=== PATIENT | female | born 1995 | race African-American/Black ===

== ENCOUNTER 2021-06-07 10:02 | Outpatient (REF) | payer BC, SELFPAY ==
[2021-06-07 11:26] LABS: MANUAL DIFF FLAG NO
[2021-06-07 11:39] LABS: Basophils Percent Auto 0.4 % (0-2); Eosinophils Absolute Auto 0.1 X10*3/uL (0.0-0.4); Eosinophils Percent Auto 1.7 % (0-4); Hematocrit 34.8 % (37-47); Hemoglobin 11.9 g/dl (12.0-16.0); Imm Gran Abs Auto 0.01 X10*3/uL (0.00-0.03); Imm Gran Pct Auto 0.2 % (0.0-0.4); Lymphocytes Absolute Auto 1.2 X10*3/uL (1.2-4.9); Lymphocytes Percent Auto 25.5 % (20-40); Mean Corpuscular HGB Conc 34.2 g/dl (31.0-35.0); Mean Corpuscular Hemoglobin 27.2 pg (27.0-33.0); Mean Corpuscular Volume 79.6 fL (80-98); Mean Platelet Volume 11.5 fL (9.4-12.3); Monocytes Absolute Auto 0.4 X10*3/uL (0.1-1.2); Monocytes Percent Auto 7.9 % (2-11); Neutrophils Absolute Auto 2.9 X10*3/uL (2.0-8.3); Neutrophils Percent Auto 64.3 % (45-73); Platelet Count 278 X10*3/uL (160-400); Red Blood Count 4.37 X10*6/uL (4.20-5.50); Red Cell Distribution Width 12.7 % (11.0-16.0); White Blood Count 4.6 X10*3/uL (4.8-10.8)
[2021-06-07 12:07] LABS: TSH reflex Free T4 2.24 uIU/mL (0.32-4.0)
[2021-06-07 12:42] LABS: Estimated Glomerular Filt Rate > 60
[2021-06-07 12:43] LABS: Alanine Aminotransferase < 6 U/L (0-31); Anion Gap 12 (12-20); Aspartate Amino Transferase 8 U/L (5-31); Blood Urea Nitrogen 9 mg/dL (9-16); Calcium 9.5 mg/dL (8.4-10.2); Carbon Dioxide 25 mmol/L (22-29); Chloride 104 mmol/L (96-108); Cholesterol 162 mg/dL; Glucose Fasting 82 mg/dL (60-99); HDL Cholesterol 52 mg/dL; LDL Cholesterol Calculated 84 mg/dl; Potassium 4.3 mmol/L (3.3-5.1); Sodium 137 mmol/L (135-145); Triglycerides 134 mg/dL
== END 2021-06-07 10:03 | disposition home or self-care (01) ==
LOC: HO.HMGCLDS 10:02
PROVIDERS: PCP Internal Medicine; Visit Provider Internal Medicine
DX: Z00.00 Encounter for general adult medical examination without abnormal findings (principal); E28.2 Polycystic ovarian syndrome; F41.8 Other specified anxiety disorders; R04.0 Epistaxis; I10 Essential (primary) hypertension
CPT/HCPCS: 36415; 80048; 80061; 82306; 84443; 84450; 84460; 85025

== ENCOUNTER 2021-12-03 14:22 | Outpatient (REF) | payer BC, SELFPAY ==
[2021-12-03 15:11] LABS: Influenza A PCR NEGATIVE (Negative); Influenza B PCR NEGATIVE (Negative); Resp Syncy Virus RNA Qual PCR NEGATIVE (Negative); SARS COV2 PCR INHOUSE NEGATIVE (Negative)
== END 2021-12-03 14:23 | disposition home or self-care (01) ==
LOC: HO.LNP 14:22
PROVIDERS: Visit Provider Physician Assistant
DX: R51.9 Headache, unspecified (principal); B34.9 Viral infection, unspecified; Z20.822 Contact with and (suspected) exposure to COVID-19
CPT/HCPCS: 0241U

== ENCOUNTER 2022-11-26 09:40 | Outpatient (REF) | payer BC, SELFPAY ==
[2022-11-26 11:17] LABS: MANUAL DIFF FLAG NO
[2022-11-26 11:24] LABS: Basophils Percent Auto 0.2 % (0-2); Eosinophils Absolute Auto 0.2 X10*3/uL (0.0-0.4); Eosinophils Percent Auto 3.5 % (0-4); Hematocrit 35.4 % (37.0-47.0); Imm Gran Abs Auto 0.01 X10*3/uL (0.00-0.03); Imm Gran Pct Auto 0.2 % (0.0-0.4); Lymphocytes Absolute Auto 1.2 X10*3/uL (1.2-4.9); Lymphocytes Percent Auto 26.7 % (20-40); Mean Corpuscular HGB Conc 33.9 g/dl (31.0-35.0); Mean Corpuscular Hemoglobin 26.7 pg (27.0-33.0); Mean Corpuscular Volume 78.8 fL (80.0-98.0); Mean Platelet Volume 10.6 fL (9.4-12.3); Monocytes Absolute Auto 0.4 X10*3/uL (0.1-1.2); Monocytes Percent Auto 8.1 % (2-11); Neutrophils Absolute Auto 2.7 x10*3/uL (2.0-8.3); Neutrophils Percent Auto 61.3 % (45-73); Platelet Count 327 X10*3/uL (160-400); Red Blood Count 4.49 X10*6/uL (4.20-5.50); Red Cell Distribution Width 13.9 % (11.0-16.0); White Blood Count 4.3 X10*3/uL (4.8-10.8)
[2022-11-26 11:36] LABS: Cholesterol 194 mg/dL; Glucose Fasting 95 mg/dL (60-99); HDL Cholesterol 63 mg/dL; LDL Cholesterol Calculated 108 mg/dl; Triglycerides 116 mg/dL
== END 2022-11-26 09:41 | disposition home or self-care (01) ==
LOC: HO.HMGCLDS 09:40
PROVIDERS: PCP Internal Medicine; Visit Provider Internal Medicine
DX: Z00.01 Encounter for general adult medical examination with abnormal findings (principal); F90.9 Attention-deficit hyperactivity disorder, unspecified type; Z87.74 Personal history of (corrected) congenital malformations of heart and circulatory system
CPT/HCPCS: 36415; 80061; 82947; 85025

== ENCOUNTER → 2022-12-04 08:31 | Outpatient (REF) | payer BC, SELFPAY ==
--- NOTE | 2022-12-04 08:33 | CA_ITS ---
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 Study Quality: Adequate ECG Rhythm: Sinus Conclusions: - The left ventricular systolic function is normal. The calculated ejection fraction is 55% by biplane method. - Basal infero-septum appears hypokinetic. Could be post operative. - No obvious valvular pathology seen on this study. Findings Left Ventricle Normal left ventricular cavity size. There is normal left ventricular wall thickness. The left ventricular systolic function is normal. The calculated ejection fraction is 55% by biplane method. There is no evidence of regional wall motion abnormalities. Diastolic function is normal for age. LV peak GLS -13%. Underestimation possible. Basal infero-septum appears hypokinetic. Could be post-operative. Wall Motion Rest Echo Findings The basal inferoseptal segment is hypokinetic. Right Ventricle Normal right ventricular cavity size. There is moderately decreased right ventricular systolic function. Atria Both atria are normal in size. Interatrial shunt cannot be excluded. Aortic Valve There is a normal trileaflet aortic valve. There is no aortic valve stenosis. There is no aortic valve regurgitation. Mitral Valve The mitral valve appears normal. There is no mitral valve regurgitation. There is no mitral valve stenosis. Pulmonic Valve The pulmonic valve is likely normal. Tricuspid Valve Normal tricuspid valve structure. There is no tricuspid valve regurgitation. Tricuspid regurgitation envelope is inadequate for calculation of right ventricular systolic pressure. Great Vessels The aortic annulus, sinuses of valsalva, and asc aorta are normal in size. Venous The inferior vena cava is normal in size and collapses greater than 50% with inspiration. Pericardium/Pleural There is no evidence of pericardial effusion. Prior Study Comparison No prior study available for comparison. Recommendations, Care & Conclusions No obvious valvular pathology seen on this study. Measurements 2D Linear Measurements IVSd: 0.90 0.6-0.9/0.6-1.0 cm LVIDd: 3.81 3.9-5.3/4.2-5.9 cm LVIDd Index: 1.93 2.4-3.2/2.2-3.1 cm/m2 LVIDs: 2.73 2.0-3.6 cm LVPWd: 0.82 0.7-1.1 cm LA Diam: 2.40 2.7-3.8/3.0-4.0 cm LAIDs Index: 1.22 1.5-2.3 cm/m2 LV Mass: 117.98 67-162/88-224 g LV Mass Index: 59.89 43-95/49-115 g/m2 LVOT Diam: 2.10 3.0+(-)1.3 cm 2D Systolic Function EF 4C: 53.10 >55% EF 2C: 52.70 >55% EF BiP: 54.50 >55% Mitral Valve MV Pk E: 0.84 MV PK A: 0.75 MV Decel Time: 175.00 E/A: 1.10 E'Lateral: 11.90 E'Medial: 7.62 E/E' Med: 11.10 E/E' Lat: 7.10 PHT: 51.00 MVA PHT: 4.31 Decel [place]: 4.82 Aortic Valve AoV Pk Ace: 0.94 AoV Pk Grad: 4.00 PABLO: 2.96 LVOT LVOT Pk Ace: 0.80 LVOT Mn Ace: 0.58 LVOT VTI: 0.14 LVOT Pk Grad: 3.00 LVOT Mn Grad: 2.00 LVOT Diam: 2.10 LVOT Area: 3.46 Diastolic Function MV Pk E: 0.84 MV Pk A: 0.75 E/A: 1.10 E'Medial: 7.62 E/E' Med: 11.10 E' Laterial: 11.90 E/E' Lat: 7.10 Right Ventricle TAPSE (mm): 11.70 TVS' Ace: 8.80 Tricuspid Valve RA Press: 8.00 Great Vessels Aorta Sinus of Valsalva: 2.60 2.0-3.5 cm Ao Asc: 2.50 2.1-3.4 cm Pulmonary Veins Pulm Vein S/D 1.40 Pulmonary Valve PV Pk Ace: 1.06 Peak PV Grad: 4.00 Updated in Other Vendor System with Status of Final Felipe Lynne MD electronically signed on 12/06/2022 1:59:51 PM with status of Final
== END ==
LOC: HO.CARD 08:31
PROVIDERS: PCP Internal Medicine; Visit Provider Internal Medicine
DX: Z00.01 Encounter for general adult medical examination with abnormal findings (principal); F90.9 Attention-deficit hyperactivity disorder, unspecified type; Z87.74 Personal history of (corrected) congenital malformations of heart and circulatory system
CPT/HCPCS: 93306; 93356

== ENCOUNTER → 2023-04-06 08:38 | Outpatient (BNVA) | payer BC, SELFPAY | PROVIDERS: PCP Internal Medicine; Visit Provider Nurse Practitioner Family ==

== ENCOUNTER 2023-05-29 14:15 | Outpatient (REF) | payer BC, SELFPAY | END 2023-05-29 14:16 | disposition home or self-care (01) | LOC: HO.MRI 14:15 | PROVIDERS: PCP Internal Medicine; Visit Provider Nurse Practitioner Family | DX: R29.810 Facial weakness (principal); R47.1 Dysarthria and anarthria; R51.9 Headache, unspecified | CPT/HCPCS: 70553; A9585 ==

== ENCOUNTER 2023-06-04 14:40 | Outpatient (REF) | payer BC, SELFPAY ==
[2023-06-10 20:49] LABS: Intrinsic Factor Antibodies Positive (Negative)
== END 2023-06-04 14:41 | disposition home or self-care (01) ==
LOC: HO.HMGCLDS 14:40
PROVIDERS: PCP Internal Medicine; Visit Provider Internal Medicine
DX: E53.8 Deficiency of other specified B group vitamins (principal)
CPT/HCPCS: 36415; 86340

== ENCOUNTER 2023-06-24 15:50 | Outpatient (AMB) | payer BC, SELFPAY ==
[2023-06-24 15:52] VITALS: BP 100/78; PULSE 84; O2SAT 98; BMI 25.7
--- NOTE | 2023-06-24 15:52 | MHC.OFFVIS ---
Intake Vital Signs 06/24/23 15:52 Height 5 ft 10 in Weight 179 lb 6 oz BMI 25.7 BP 100/78 Blood Pressure Location Lt brachial Position Sitting Pulse 84 Pulse Source Pulse Oximeter Pulse Oximetry (%) 98 Oxygen Delivery Method Room Air Intake Visit Reasons: 2m follow up Headache Intake Note: Pt presents as a 2 month f/u for headaches. Pt states They are going good, I have the nurtec with the prescription card. I had to take it last week. Canvas Baster Jumpbasting Required: No Allergies environmental allergies Allergy (Unknown, Verified 06/24/23 15:55) Unknown house dust Allergy (Unknown, Verified 06/24/23 15:55) Unknown pollen extracts Allergy (Unknown, Verified 06/24/23 15:55) Unknown Sulfa (Sulfonamide Antibiotics) Allergy (Verified 06/24/23 15:55) Unknown topiramate Allergy (Verified 06/24/23 15:55) Unknown HPI HPI Comments History of Present Illness Details 28-yr-old female presents for f/u visit. Pt endorses the following interval medical history changes: Pt saw endocrinology- Gil Caba- was dx's with hypothyroidism (TSH 5's), low B-12, low vit D. Her PCP did f/u testing and she is has started IM b12 supplementation. Scheduled to have f/u thyroid studies. The headaches have been better. The Nurtec is helpful, but has not been helpful for migraines triggered by weather changes/thunder storms. She is having 1 migraine day per week. She is tolerating the propranolol well. 05/29/23 at [facility] [place]/MR head/brain wo/w con IMPRESSION: No acute intracranial process. No abnormal enhancement. 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 Minimal punctate foci of signal in the right parietal white matter of indeterminate clinical significance. Otherwise, relatively normal MRI of the brain. [facility] Medical History ADHD Allergic rhinitis ASD (atrial septal defect) Bruxism (teeth grinding) Chronic headaches Depression with anxiety Headache Hx of epistaxis PCOS (polycystic ovarian syndrome) TMJ (temporomandibular joint disorder) Vitamin B12 deficiency Vitamin D deficiency VSD (ventricular septal defect) Surgical History History of surgical removal of pilonidal cyst Hx of atrial septal defect repair Hx of ventricular septal defect repair Family History Father Mental health disorder HTN (hypertension) Mother HTN (hypertension) IBS (irritable bowel syndrome) Sister Anxiety Depression Social History (Updated 06/24/23 @ 15:58 by Erlinda Hayes CMA) Housing: House Alcohol intake: current Alcohol intake frequency: a few times a month Patient Tobacco Use Status: Never used Tobacco e-Cigarette/Vaping Use: Never Used Use of substances other than those prescribed or required for medical reasons: No Current occupational status: employed Cognitive needs: No Hearing needs: No Vision needs: Yes Review of Systems Const All systems reviewed & are unremarkable except as noted in HPI and below Physical Exam Vital Signs: Last Vital Signs Pulse 84 06/24/23 15:52 BP 100/78 06/24/23 15:52 Pulse Ox 98 06/24/23 15:52 Oxygen Delivery Method Room Air 06/24/23 15:52 BMI result Body Mass Index 25.7 Const General: cooperative and no acute distress Orientation/consciousness: patient oriented x3 HEENT Head: Yes normocephalic Resp Effort & Inspection: normal respiratory effort and able to speak in complete sentences Neuro General: patient oriented x3, gait normal and CN's II-XI intact bilaterally Cognition (Neuro): normal cognition Motor exam (neuro): 5/5 motor strength present throughout Psych Appearance: grossly normal Mental Status: mental status grossly normal Speech and movement: Normal speech and movement present Affect: normal affect Attitude: cooperative Thought process: Normal thought process present Thought content: Normal thought content present Insight: Good insight present (Psych) Judgement: Good judgement present (Psych) Assessment & Plan Assessment & Plan (1) Migraine: Comment: w/ aura s/s- however visual aura is prolonged Code(s): G43.909 - Migraine, unspecified, not intractable, without status migrainosus (2) Dysarthria: Code(s): R47.1 - Dysarthria and anarthria (3) Facial droop: Code(s): R29.810 - Facial weakness Plan Reviewed brain MRI reporta nd images personally w/ pt- Brain MRI w/wo- Small right frontal lobe DVA. Minimal nonspecific punctate foci of signal in the right parietal white matter of indeterminate. No findings to account for pt's episodes of slurred speech, facial droop which occur w/wo headache- ? migarine aura w/o headcahe- will monitor. Cardiology consult as scheduled- for their input r/t tachycardia as well if pt is a candidate to try triptans / ADHD stimulant. Future considerations- PT forTMJ/bruxism. For overall headache management: Continue to optimize good self-care, including but not limited to maintaining a healthy diet,? adequate fluid intake, adequate sleep, and engaging in regular physical activity. For headache triggers: Track headaches, especially after any treatment regimen changes. For acute headache treatment: Zofran 4mg q 4 hrs prn N/V/migraien attack. Continue Nurtec ODT 75mg po qd prn at onset of migraine. May adjunct w/ Tylenol, Ibuprofen, Naproxen, or Pamprin. May use Sumatriptan 25mg prn sparingly- pending cardiology clearance. Previous acute migraine medication trials: Sumatriptan 25mg- some effect, however would not resume or increase d/t pt currently is tachycardic at rest and h/o cardiac repair. Acute migraine medication contraindications: Triptans- as above For headache prevention medication: Stopped Riboflavin 400mg qam- ineffective Magnesium 400mg qhs Continue Amitriptyline 10mg qhs. Continue Propranolol ER 60mg? qhs Previous migraine prevention medication trials: Topiramate- caused contact hives in her hands. Migraine prevention medication contraindications: None at this time f/u in 3 months or sooner prn. Coding Level of Care Code Est Pt Level 4 (52541) Diagnoses Migraine G43.909 Dysarthria R47.1 Facial droop R29.810
== END 2023-06-25 13:17 | disposition home or self-care (01) ==
PROVIDERS: Visit Provider Nurse Practitioner Family
DX: G43.909 Migraine, unspecified, not intractable, without status migrainosus (principal); R47.1 Dysarthria and anarthria; R29.810 Facial weakness
CPT/HCPCS: 99214

== ENCOUNTER → 2023-06-24 15:50 | Outpatient (BNVA) | payer BC, SELFPAY | PROVIDERS: Visit Provider Nurse Practitioner Family ==

== ENCOUNTER 2023-07-07 08:51 | Outpatient (AMB) | payer BC, SELFPAY ==
--- NOTE | 2023-07-07 08:58 | MHC.OFFVIS ---
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estradiol-lm.FA 3-0.02-0.451 mg (24) (4) (Beyaz (28)) 1 tab PO DAILY loratadine (Claritin) 5 mL PO BID magnesium oxide 400 mg PO BEDTIME 30 days ondansetron HCl 4 mg PO Q6H PRN 30 days propranolol ER 60 mg PO BEDTIME 30 days rimegepant (Nurtec ODT) 75 mg orally daily PRN; 30 days sodium fluoride-pot nitrate 1.1-5 % PO sumatriptan succinate take 1/2 - 1 tab at onset of headache; if no relief may repeat after at least 2 hrs; max = 4 tabs/24 hr orally PRN; 30 days syringe with needle (BD Luer-Korey Syringe) As directed to inject vitamin B-12 HPI HPI Comments History of Present Illness Details THank you for referring aTmmy in cardiology consultation today for repaired congenital heart defect. We do not have the old records for surgery but patient says at age of 5 at [facility] she underwent a repair and was told that she had ASD and VSD and valve abnormality. 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 She said last follow-up was age 9. She had echocardiogram done Divine of this year which showed RV systolic dysfunction with normal LV ejection fraction 55% although global longitudinal strain was reduced and basal inferoseptum was hypokinetic most likely past repair of the VSD. There are no major valvular abnormality. She says for many years she would get rapid palpitations that will gradually build up into fast heart rate. The symptoms would happen about once or twice a year. Last March she had a very prolonged episode over the weekend. Since then she has been prescribed propranolol. She has not had any recurrent palpitation although she thinks that this might be because she usually does not get palpitations on a regular basis. She also has anxiety/panic disorders and thinks that her palpitations might be related to it. She complains of exertional fatigue but says that she was diagnosed with pernicious anemia and that might have a factor into it. She is currently getting vitamin B12 injections. She also vitamin-D deficiency and hypothyroidism. When she has symptoms of palpitations she does not have any associated diaphoresis, lightheadedness, syncope. Denies any exertional shortness of breath. Denies any right heart failure symptoms. [facility] [place] Medical History ADHD Allergic rhinitis ASD (atrial septal defect) Bruxism (teeth grinding) Chronic headaches Depression with anxiety Headache Hx of epistaxis PCOS (polycystic ovarian syndrome) TMJ (temporomandibular joint disorder) Vitamin B12 deficiency Vitamin D deficiency VSD (ventricular septal defect) Surgical History History of surgical removal of pilonidal cyst Hx of atrial septal defect repair Hx of ventricular septal defect repair Family History Father Mental health disorder HTN (hypertension) Mother HTN (hypertension) IBS (irritable bowel syndrome) Sister Anxiety Depression Social History Housing: House Alcohol intake: current Alcohol intake frequency: a few times a month Patient Tobacco Use Status: Never used Tobacco e-Cigarette/Vaping Use: Never Used Current occupational status: employed Cognitive needs: No Hearing needs: No Vision needs: Yes Review of Systems Const Denies chills, Denies daytime sleepiness, Denies fatigue, Denies fever(s), Denies frequent falls, Denies poor appetite, Denies snoring, Denies stops breathing during sleep, Denies weakness, Denies weight gain and Denies weight loss Eyes Denies loss of vision ENT Denies dizziness and Denies hearing loss Card Denies chest pain, Denies claudication, Denies leg edema, Denies lightheadedness, Denies palpitations, Denies dyspnea, Denies dyspnea on exertion and Denies orthopnea Resp Denies cough, Denies excessive phlegm production, Denies dyspnea, Denies dyspnea on exertion, Denies snoring and Denies wheezing GI Denies abdominal pain, Denies hematochezia, Denies change in bowel habits, Denies nausea and Denies vomiting Denies urinary frequency and Denies dysuria Musc Denies arthralgias, Denies muscle weakness, Denies numbness and Denies other (frequent falls) Skin/Breast Denies nail changes and Denies rash Neuro Denies Abnormal speech present, Denies dizziness, Denies frequent falls, Denies loss of vision, Denies memory loss, Denies numbness and Denies weakness Psych Denies depression and Denies memory loss Endo Denies fatigue and Denies palpitations Isaiah/Lymph Reports easy bruising and Reports other (anemia) Aller/Immun Denies wheezing Physical Exam Vital Signs: Last Vital Signs Pulse 74 07/07/23 08:59 BP 110/70 07/07/23 08:59 BMI result Body Mass Index 25.3 Const General: cooperative, comfortable, no acute distress, alert, awake and Physically active Nutritional Appearance: average body habitus Orientation/consciousness: patient oriented x3 Limitations: no limitations HEENT Head: Yes normocephalic and Yes atraumatic Neck Neck: Yes trachea midline, Yes supple and Yes no JVD Resp Effort & Inspection: normal respiratory effort Auscultation: clear to auscultation bilaterally Cardio Jugular venous distension: no JVD Palpation: normal PMI Rate: regular rate Rhythm: regular rhythm Heart sounds: S1 normal heart sound present, S2 normal heart sound present, no click, no gallops, no murmurs and no rubs GI Auscultation: normal bowel sounds Skin General skin exam: no rashes or lesions noted Neuro General: patient oriented x3 and no focal motor deficits Speech: No Abnormal speech present Extrem General: Yes no clubbing, cyanosis or edema Psych Appearance: grossly normal Office Procedures EKG Details: EKG shows normal sinus rhythm with rightward axis with nonspecific ST T wave changes [id number], Complete Assessment & Plan Assessment & Plan (1) Adult congenital heart disease: Code(s): Q24.9 - Congenital malformation of heart, unspecified Plan: Patient with prior congenital heart disease status post repair at age of 5. Unclear as to the history but from what patient describes she appears to have had complete AV canal defect with repair of ASD as well as VSD and valvular repair at that time. Will try to obtain the records from [facility]. Her current LV ejection fraction is normal although longitudinal strain is reduced. RV systolic dysfunction is present. She has no signs or symptoms of right heart failure. She has symptoms of palpitation which happen about once or twice a year under stressful situation. This could represent atrial arrhythmias such as atrial tachycardia/flutter or fibrillation. Although this is never been diagnosed. This is important to diagnose. Propranolol is inappropriate therapy although she thinks that this is aggressive therapy for her as her symptoms of very sporadic and infrequent. She would like to come of medications and utilize as little medication as possible. We discussed about tapering and discontinue propranolol therapy which is appropriate. Will like to diagnose her symptoms of palpitation and see if she has any significant atrial arrhythmias that may require oral anticoagulation therapy given her atrial pathology from prior repair. Avoidance of stimulants was discussed. Also stress mitigation strategies were discussed. She is encouraged to continue to participate in heart healthy lifestyle and regular aerobic activity. Signs symptoms of right heart failure were discussed. She showed understanding. Will follow up in the clinic in 1 year's time after an echocardiogram. Thank you for allowing me to partake in her care Coding Level of Care Code New Pt Level 4 (53173) Diagnoses Adult congenital heart disease Q24.9 CPT Codes EKG - CPT: 47486-[id number], Complete ([id number])
[2023-07-07 08:59] VITALS: BP 110/70; PULSE 74; BMI 25.3
== END 2023-07-07 09:29 | disposition home or self-care (01) ==
PROVIDERS: PCP Internal Medicine; Referring Provider Nurse Practitioner Family; Visit Provider Internal Medicine Cardiovascular Disease
DX: Q24.9 Congenital malformation of heart, unspecified (principal)
CPT/HCPCS: 93010; 99204

== ENCOUNTER → 2023-07-07 08:51 | Outpatient (BNVA) | payer BC, SELFPAY | PROVIDERS: PCP Internal Medicine; Referring Provider Nurse Practitioner Family; Visit Provider Internal Medicine Cardiovascular Disease | DX: Q24.9 Congenital malformation of heart, unspecified (principal); R00.0 Tachycardia, unspecified; Q21.10 Atrial septal defect, unspecified; Q21.0 Ventricular septal defect; E03.9 Hypothyroidism, unspecified; E53.8 Deficiency of other specified B group vitamins; E55.9 Vitamin D deficiency, unspecified | CPT/HCPCS: 93005 ==

== ENCOUNTER 2023-09-03 14:38 | Outpatient (AMB) | payer BC, SELFPAY ==
[2023-09-03 15:08] VITALS: BP 104/70; PULSE 76; O2SAT 100; BMI 25.7
--- NOTE | 2023-09-03 15:08 | MHC.PC.OV ---
Vital Signs 09/03/23 15:08 Height 5 ft 10 in Weight 179 lb 2 oz BMI 25.7 BP 104/70 Blood Pressure Location Lt brachial Position Sitting Pulse 76 Pulse Source Pulse Oximeter Pulse Oximetry (%) 100 Oxygen Delivery Method Room Air Intake Visit Reasons: 3m follow up Intake Note: pt is here to follow up for anemia Allergies environmental allergies Allergy (Unknown, Verified 09/04/23 02:02) Unknown house dust Allergy (Unknown, Verified 09/04/23 02:02) Unknown pollen extracts Allergy (Unknown, Verified 09/04/23 02:02) Unknown Sulfa (Sulfonamide Antibiotics) Allergy (Verified 09/04/23 02:02) Unknown topiramate Allergy (Verified 09/04/23 02:02) Unknown Medication List - Last Reconciled 09/03/23 by Ca Ordoñez MD amitriptyline 10 mg PO BEDTIME citalopram 20 mg PO DAILY cyanocobalamin (vitamin B-12) Inject 1 mL(1000 mcg) intramuscularly once a week for 4 weeks, then monthly thereafter 1 week drospirenone-e.estradiol-lm.FA 3-0.02-0.451 mg (24) (4) (Beyaz (28)) 1 tab PO DAILY loratadine (Allergy Relief (loratadine)) 10 mg PO DAILY magnesium oxide 400 mg PO BEDTIME 30 days ondansetron HCl 4 mg PO Q6H PRN 30 days propranolol 60 mg PO ONCE rimegepant (Nurtec ODT) 75 mg orally daily PRN; 30 days sodium fluoride-pot nitrate 1.1-5 % PO sumatriptan succinate take 1/2 - 1 tab at onset of headache; if no relief may repeat after at least 2 hrs; max = 4 tabs/24 hr orally PRN; 30 days syringe with needle (BD Luer-Korey Syringe) As directed to inject vitamin B-12 Tobacco use date assessed: 09/03/23 Dental Screening Dental Screen Date: 09/03/23 Did you have a dental visit in the last 12 months?: Yes Did you have a dental problem in the last 6 months where you did not have access to dental care?: No Was dental information given to patient?: Patient has dentist HPI 3m follow up HPI Details 28-year-old lady here today follow-up. She has history of anemia, which has resolved, last CBC done October 2022 showed a hemoglobin of 12. Patient currently asymptomatic. She is currently being followed at the endocrine clinic at [facility] for elevated TSH, last TSH obtained at [facility] July 13 showed a TSH of 4.6, with free T4 of 0.86 and negative thyroid peroxidase antibody. She has been having chronic headaches, has been referred to see a TMJ specialist at [facility] in [facility]. Currently also being followed by Neurology for migraine headaches, has had less migraine episodes since starting Nurtec ODT She has congenital heart disease, and sinus tachycardia, as seen on previous EKG, currently seen by Cardiology, last visit was in June 2023 and has been referred to see a specialist at [facility], patient still waiting for appointment to be scheduled. [facility] Medical History (Updated 09/03/23 @ 15:52 by Ca Ordoñez MD) Vitamin D deficiency Vitamin B12 deficiency TMJ (temporomandibular joint disorder) Bruxism (teeth grinding) Chronic headaches Allergic rhinitis Hx of epistaxis Headache ADHD VSD (ventricular septal defect) ASD (atrial septal defect) PCOS (polycystic ovarian syndrome) Depression with anxiety Surgical History Hx of atrial septal defect repair Hx of ventricular septal defect repair History of surgical removal of pilonidal cyst Family History Father Mental health disorder HTN (hypertension) Mother HTN (hypertension) IBS (irritable bowel syndrome) Sister Anxiety Depression Social History Housing: House Alcohol intake: current Alcohol intake frequency: a few times a month Patient Tobacco Use Status: Never used Tobacco e-Cigarette/Vaping Use: Never Used Current occupational status: employed Cognitive needs: No Hearing needs: No Vision needs: Yes Questionnaire PHQ-9 Over the last 2 weeks, how often have you been bothered by any of the following problems? Depression Screening Interpretation: Negative Depression Screening Done: Yes Source: Developed by Drs. Aguilar Hicks, Irina Monet, Miller Herrera and colleagues, with an educational samantha from [employer]. Thrive Questionnaire Date Thrive assessed: 06/01/23 PEDRO-7 AMB Questionnaire PEDRO-7 Date PEDRO - 7 assessed: 06/01/23 Source: Developed by Drs. Aguilar Hicks, Irina Monet, Miller Herrera and colleagues, with an educational samantha from [employer]. Review of Systems Const Reports as per HPI, Reports daytime sleepiness, Denies headache(s), Reports malaise and Denies weakness Eyes Denies no additional complaints ENT Denies headache(s) Card Denies as per HPI, Denies chest pain, Denies chest pain at rest, Denies syncope, Reports rapid heart rate and Denies lightheadedness Resp Reports no additional complaints GI Reports no additional complaints Reports no additional complaints Musc Reports myalgias and Reports stiffness Skin/Breast Denies breast swelling and Denies breast pain Neuro Denies syncope, Denies headache(s), Denies Sensory deficit (Neuro), Reports paresthesias and Denies weakness Psych Reports as per HPI Endo Reports no additional complaints Isaiah/Lymph Denies easy bleeding and Denies easy bruising Physical exam (Primary Care) Vital Signs: Last Vital Signs Pulse 76 09/03/23 15:08 BP 104/70 09/03/23 15:08 Pulse Ox 100 09/03/23 15:08 Oxygen Delivery Method Room Air 09/03/23 15:08 BMI result Body Mass Index 25.7 Tobacco/Smoking Status: Tobacco use Status Tobacco use date assessed 09/03/23 09/03/23 15:16 Patient Tobacco Use Status Never used Tobacco 09/03/23 15:09 e-Cigarette/Vaping Use Never Used 09/03/23 15:09 Depression Screening Interpretation: Negative Thrive Assessment: Date of Thrive Assessment Date Thrive assessed 06/01/23 09/03/23 15:09 Const General: cooperative, healthy appearing, comfortable, no acute distress, well developed, alert and awake Orientation/consciousness: patient oriented x3 HENMT Other: Tenderness on palpation over bilateral TMJ Ears: external ears normal General nose exam: Normal external nose present and No nasal discharge present Face and sinus: Yes face symmetric Mouth: Normal oral and palatal mucosa present and moist mucous membranes Eyes General: appearance normal, both eyes and all related structures Neck Neck: Yes full ROM, Yes no lymphadenopathy and Yes supple Thyroid: Thyroid normal Resp Effort & Inspection: normal respiratory effort and able to speak in complete sentences Auscultation: clear to auscultation bilaterally Cardio Rate: regular rate Rhythm: regular rhythm Heart sounds: S1 normal heart sound present and S2 normal heart sound present Peripheral pulses: Peripheral pulses 2+ throughout GI Inspection: Yes normal to inspection Palpation (GI): Soft to palpation, nontender, no guarding and no masses Auscultation: normal bowel sounds General: Yes no CVA tenderness Back/Spine/Pelvis Back: no CVA tenderness and No back tenderness Cervical Spine: normal cervical lordosis Thoracic/Lumbar Spine: thoracic and lumbar spine normal to inspection Neuro General: patient oriented x3, gait normal, tone normal, moves all extremities, Normal light touch and pain sensation, no focal motor deficits, CN's II-XI intact bilaterally and normal sensation to monofilament Cranial nerves: Yes CN's II-XII intact bilaterally Cognition (Neuro): normal cognition Gait exam (Neuro): Normal gait present Motor exam (neuro): 5/5 motor strength present throughout Sensory Exam: No Sensory deficit (Neuro) Extrem General: Yes no calf tenderness Psych Appearance: grossly normal and well kempt Mental Status: mental status grossly normal Speech and movement: Normal speech and movement present Affect: normal affect Attitude: cooperative Thought process: Normal thought process present Thought content: Normal thought content present Assessment and Plan Assessment & Plan (1) Vitamin B12 deficiency: Code(s): E53.8 - Deficiency of other specified B group vitamins Plan: She gets monthly B12 injections (2) Vitamin D deficiency: Code(s): E55.9 - Vitamin D deficiency, unspecified Plan: Currently on vitamin-D 3 5000 units once a day (3) TMJ (temporomandibular joint disorder): Code(s): M26.609 - Unspecified temporomandibular joint disorder, unspecified side Plan: [facility] evaluation (4) Migraine: Comment: w/ aura s/s- however visual aura is prolonged Code(s): G43.909 - Migraine, unspecified, not intractable, without status migrainosus Qualifiers: Intractability: not intractable Migraine type: migraine (< 15 days per month) without aura Status migrainosus presence: without status migrainosus Qualified Code(s): G43.009 - Migraine without aura, not intractable, without status migrainosus Plan: Followed by Kassandra Penaloza, currently on Nurtec and as needed sumatriptan, (5) Adult congenital heart disease: Code(s): Q24.9 - Congenital malformation of heart, unspecified Plan: , will be seeing a nitric acid concentrator operator at [facility], patient still has to make an appointment (6) ADHD: Comment: dx in 2019 Code(s): F90.9 - Attention-deficit hyperactivity disorder, unspecified type Qualifiers: Attention deficit-hyperactivity disorder type: combined inattentive-hyperactive Qualified Code(s): F90.2 - Attention-deficit hyperactivity disorder, combined type Plan: Followed at [facility] (7) Depression with anxiety: Comment: Currently being seen at psych [facility] Code(s): F41.8 - Other specified anxiety disorders Plan: Currently followed by med prescriber and therapist at [facility] Orders: Orders Vitamin D 25-OH Total 09/03/23 E53.8 - Deficiency of other specified B group vitamins, E55.9 - Vitamin D deficiency, unspecified, M26.609 - Unspecified temporomandibular joint disorder, unspecified side IRON PROFILE 09/03/23 E53.8 - Deficiency of other specified B group vitamins, E55.9 - Vitamin D deficiency, unspecified, M26.609 - Unspecified temporomandibular joint disorder, unspecified side Vitamin B12 and Folate 09/03/23 E53.8 - Deficiency of other specified B group vitamins, E55.9 - Vitamin D deficiency, unspecified, M26.609 - Unspecified temporomandibular joint disorder, unspecified side Complete Blood Count Auto Diff 09/03/23 E53.8 - Deficiency of other specified B group vitamins, E55.9 - Vitamin D deficiency, unspecified, M26.609 - Unspecified temporomandibular joint disorder, unspecified side Coding Level of Care Code Est Pt Level 4 (23589) Diagnoses Vitamin B12 deficiency E53.8 Vitamin D deficiency E55.9 TMJ (temporomandibular joint disorder) M26.609 Migraine without aura and without status migrainosus, not intractable G43.009 Intractability: not intractable Migraine type: migraine (< 15 days per month) without aura Status migrainosus presence: without status migrainosus Adult congenital heart disease Q24.9 Attention deficit hyperactivity disorder (ADHD), combined type F90.2 Attention deficit-hyperactivity disorder type: combined inattentive-hyperactive Depression with anxiety F41.8
== END 2023-09-03 15:48 | disposition home or self-care (01) ==
PROVIDERS: PCP Internal Medicine; Visit Provider Internal Medicine
DX: E53.8 Deficiency of other specified B group vitamins (principal); E55.9 Vitamin D deficiency, unspecified; M26.609 Unspecified temporomandibular joint disorder, unspecified side; G43.009 Migraine without aura, not intractable, without status migrainosus; Q24.9 Congenital malformation of heart, unspecified; F90.2 Attention-deficit hyperactivity disorder, combined type; F41.8 Other specified anxiety disorders
CPT/HCPCS: 99214

== ENCOUNTER 2023-09-12 09:14 | Outpatient (REF) | payer BC, SELFPAY ==
[2023-09-12 11:19] LABS: MANUAL DIFF FLAG NO
[2023-09-12 11:22] LABS: Basophils Percent Auto 0.6 % (0-2); Eosinophils Absolute Auto 0.1 X10*3/uL (0.0-0.4); Eosinophils Percent Auto 3.6 % (0-4); Hematocrit 35.9 % (37.0-47.0); Hemoglobin 12.3 g/dl (12.0-16.0); Imm Gran Abs Auto 0.01 X10*3/uL (0.00-0.03); Imm Gran Pct Auto 0.3 % (0.0-0.4); Lymphocytes Absolute Auto 1.5 X10*3/uL (1.2-4.9); Lymphocytes Percent Auto 42.5 % (20-40); Mean Corpuscular HGB Conc 34.3 g/dl (31.0-35.0); Mean Corpuscular Hemoglobin 27.8 pg (27.0-33.0); Mean Platelet Volume 11.6 fL (9.4-12.3); Monocytes Absolute Auto 0.3 X10*3/uL (0.1-1.2); Monocytes Percent Auto 7.8 % (2-11); Neutrophils Absolute Auto 1.6 x10*3/uL (2.0-8.3); Neutrophils Percent Auto 45.2 % (45-73); Platelet Count 313 X10*3/uL (160-400); Red Blood Count 4.43 X10*6/uL (4.20-5.50); Red Cell Distribution Width 12.7 % (11.0-16.0); White Blood Count 3.6 X10*3/uL (4.8-10.8)
[2023-09-12 11:51] LABS: Iron 89 mcg/dL (30-160); Percent Iron Saturation 30 % (15-50); Total Iron Binding Capacity 294 mcg/dL (228-428); Unsaturated Iron Binding 205 ug/dL
[2023-09-12 11:58] LABS: Vitamin D 25-OH Total 115.4 ng/mL (>30)
[2023-09-12 12:23] LABS: Vitamin B12 397 pg/mL (200-900)
== END 2023-09-12 09:15 | disposition home or self-care (01) ==
LOC: HO.HMGCLDS 09:14
PROVIDERS: PCP Internal Medicine; Visit Provider Internal Medicine
DX: E53.8 Deficiency of other specified B group vitamins (principal); E55.9 Vitamin D deficiency, unspecified; M26.609 Unspecified temporomandibular joint disorder, unspecified side
CPT/HCPCS: 36415; 82306; 82607; 82746; 83540; 85025

== ENCOUNTER 2023-10-01 14:51 | Outpatient (AMB) | payer BC, SELFPAY ==
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
[2023-10-01 15:12] VITALS: BP 106/76; PULSE 76; O2SAT 99
== END 2023-10-01 15:40 | disposition home or self-care (01) ==
PROVIDERS: PCP Internal Medicine; Visit Provider Nurse Practitioner Family
DX: G43.009 Migraine without aura, not intractable, without status migrainosus (principal); J34.89 Other specified disorders of nose and nasal sinuses; G47.9 Sleep disorder, unspecified; R06.83 Snoring; G47.19 Other hypersomnia
CPT/HCPCS: 99214

== ENCOUNTER → 2023-10-01 14:51 | Outpatient (BNVA) | payer BC, SELFPAY | PROVIDERS: PCP Internal Medicine; Visit Provider Nurse Practitioner Family ==

== ENCOUNTER → 2023-10-27 07:54 | Outpatient (REF) | payer BC, SELFPAY | LOC: HO.SL 07:54 | PROVIDERS: PCP Internal Medicine; Visit Provider Nurse Practitioner Family | DX: G47.9 Sleep disorder, unspecified (principal); R06.83 Snoring; G47.19 Other hypersomnia; J34.89 Other specified disorders of nose and nasal sinuses | CPT/HCPCS: 95806 ==

== ENCOUNTER → 2023-10-27 08:03 | Outpatient (BNV) | payer BC, SELFPAY | PROVIDERS: PCP Internal Medicine; Visit Provider Psychiatry & Neurology Neurology | DX: R06.83 Snoring (principal) | CPT/HCPCS: 95806 ==

== ENCOUNTER 2024-01-20 08:07 | Outpatient (AMB) | payer BC, SELFPAY ==
--- NOTE | 2024-01-20 08:25 | MHC.OFFVIS ---
Intake Vital Signs 01/20/24 08:26 Pulse 80 Pulse Source Pulse Oximeter Pulse Oximetry (%) 98 Oxygen Delivery Method Room Air Intake Visit Reasons: 3M follow up - CONF Intake Note: patient presents for 3 month follow up. Maritza been having migraines Allergies environmental allergies Allergy (Unknown, Verified 01/20/24 08:26) Unknown house dust Allergy (Unknown, Verified 01/20/24 08:26) Unknown pollen extracts Allergy (Unknown, Verified 01/20/24 08:26) Unknown Sulfa (Sulfonamide Antibiotics) Allergy (Verified 01/20/24 08:26) Unknown topiramate Allergy (Verified 01/20/24 08:26) Unknown Medication List - Last Reconciled 01/20/24 by KESHIA Esposito amitriptyline 10 mg PO BEDTIME citalopram 20 mg PO DAILY cyanocobalamin (vitamin B-12) Inject 1 mL(1000 mcg) intramuscularly once a week for 4 weeks, then monthly thereafter 1 week drospirenone-e.estradiol-lm.FA 3-0.02-0.451 mg (24) (4) (Beyaz (28)) 1 tab PO DAILY galcanezumab-gnlm (Emgality Pen) 240 mg (2 mL) subcut ONCE 30 days loratadine (Allergy Relief (loratadine)) 10 mg PO DAILY magnesium oxide 400 mg PO BEDTIME 30 days ondansetron HCl 4 mg PO Q6H PRN 30 days propranolol 60 mg PO ONCE propranolol ER 60 mg PO BEDTIME 30 days rimegepant (Nurtec ODT) 75 mg orally daily PRN; 30 days sodium fluoride-pot nitrate 1.1-5 % PO sumatriptan succinate take 1/2 - 1 tab at onset of headache; if no relief may repeat after at least 2 hrs; max = 4 tabs/24 hr orally PRN; 30 days syringe with needle (BD Luer-Korey Syringe) As directed to inject vitamin B-12 HPI HPI Comments History of Present Illness Details 29-yr-old female presents for f/u visit. Saw TMJ specialist- was fitted for a TMJ device. 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 She was tried on Strattera, however she has a rare side effect of ringing tinnitus. She does have an upcoming appointment with [facility], advised her to discuss alternate Home sleep study showed AHI of 0.1 per hour, O2 kierra 94%. The Migraines are occurring less often- once a week, but can last longer. The [employer] works very well, but not for weather triggered attacks. She has had some personal stress, which she is working on. Recently stopped going to her long-term christian, and is looking for a new christian. She is trying to engage in social activities, which she enjoys. She is going to the movies- using Loop ear plugs w/ mute loops to help w/ phonophobia. Baseline headache characteristics, has a few different headaches: Stress related headaches- start in the top of her head. Allergy triggered headache- states r/t mold- comes with rain- starts in sinuses and travels across the face and head. Most bothersome headache: Aura- just before the headache, but come during the headache, can last hours- eyes twitch, objects may seem like they are moving/twisting, feels like she is wavy, ringing in her ear- feels like she can't hear but can it just feels far eye. Left facial droop and slurred speech- comes before the headache- unsure of duration- can also come without headache if stressed.. Severe headache a/w Photophobia, phonophobia, some osmophobia, nausea, at times vomiting, dizziness, scalp and facial sensitivity. Denies paresthesias. [facility] Medical History (Updated 10/01/23 @ 16:06 by KESHIA Esposito) Obstruction of nasal valve Disturbance of sleep Vitamin D deficiency Vitamin B12 deficiency TMJ (temporomandibular joint disorder) Bruxism (teeth grinding) Chronic headaches Allergic rhinitis Hx of epistaxis Headache ADHD VSD (ventricular septal defect) ASD (atrial septal defect) PCOS (polycystic ovarian syndrome) Depression with anxiety Surgical History Hx of atrial septal defect repair Hx of ventricular septal defect repair History of surgical removal of pilonidal cyst Family History Father Mental health disorder HTN (hypertension) Mother HTN (hypertension) IBS (irritable bowel syndrome) Sister Anxiety Depression Social History Housing: House Alcohol intake: current Alcohol intake frequency: a few times a month Patient Tobacco Use Status: Never used Tobacco e-Cigarette/Vaping Use: Never Used Current occupational status: employed Cognitive needs: No Hearing needs: No Vision needs: Yes Physical Exam Vital Signs: Last Vital Signs Pulse 80 01/20/24 08:26 Pulse Ox 98 01/20/24 08:26 Oxygen Delivery Method Room Air 01/20/24 08:26 Const General: cooperative and no acute distress Orientation/consciousness: patient oriented x3 Resp Effort & Inspection: normal respiratory effort and able to speak in complete sentences Neuro General: patient oriented x3 Cranial nerves: Yes CN's II-XII intact bilaterally Cognition (Neuro): normal cognition Psych Appearance: grossly normal Mental Status: mental status grossly normal Speech and movement: Normal speech and movement present Affect: normal affect Attitude: cooperative Assessment & Plan Assessment & Plan (1) Migraine: Comment: w/ aura s/s- however visual aura is prolonged Code(s): G43.909 - Migraine, unspecified, not intractable, without status migrainosus Qualifiers: Migraine type: migraine (< 15 days per month) without aura Status migrainosus presence: without status migrainosus Intractability: not intractable Qualified Code(s): G43.009 - Migraine without aura, not intractable, without status migrainosus (2) Bruxism (teeth grinding): Code(s): F45.8 - Other somatoform disorders (3) Depression with anxiety: Comment: Currently [facility] Code(s): F41.8 - Other specified anxiety disorders (4) ADHD: Comment: dx in 2019 Code(s): F90.9 - Attention-deficit hyperactivity disorder, unspecified type Qualifiers: Attention deficit-hyperactivity disorder type: combined inattentive-hyperactive Qualified Code(s): F90.2 - Attention-deficit hyperactivity disorder, combined type Plan [facility] f/u as scheduled. Advised to discuss medication options for her ADHD symptoms. Information shared on adult ADHD symptom management. Reviewed HST- normal. ? For overall headache management: Continue to optimize good self-care, including but not limited to maintaining a healthy diet,? adequate fluid intake, adequate sleep, and engaging in regular physical activity. Track headaches, especially after any treatment regimen changes. Concur with using loupe and mute loop device, when a ladder environments. ? For acute headache treatment: Zofran 4mg q 4 hrs prn N/V/migraine attack. Continue Nurtec ODT 75mg po qd prn at onset of migraine. May adjunct w/ Tylenol, Ibuprofen, Naproxen, or Pamprin. Previous acute migraine medication trials: Sumatriptan 25mg- some effect, however would not increase d/t tachycardia at rest and h/o cardiac repair. Acute migraine medication contraindications: Triptans- as above ? For headache prevention medication: Magnesium 400mg qhs Continue Amitriptyline 10mg qhs- pt would like to wean off d/t her palpitations. Continue Propranolol ER 60mg?qhs- prescribed for palpitations Start Emgality 240mg sc x's 1, then 120mg sc q month. Previous migraine prevention medication trials: Topiramate- caused contact hives in her hands. Riboflavin 400mg qam- ineffective Migraine prevention medication contraindications: None at this time ? f/u in 3 months or sooner prn. Medications: New galcanezumab-gnlm (Emgality Pen) Loading dose: 240mg sc x's 1, 120mg sc q month 240 mg (2 mL) subcut ONCE 30 days 2 mL 0RF Coding Level of Care Code Est Pt Level 4 (86686) Diagnoses Migraine without aura and without status migrainosus, not intractable G43.009 Migraine type: migraine (< 15 days per month) without aura Status migrainosus presence: without status migrainosus Intractability: not intractable Bruxism (teeth grinding) F45.8 Depression with anxiety F41.8 Attention deficit hyperactivity disorder (ADHD), combined type F90.2 Attention deficit-hyperactivity disorder type: combined inattentive-hyperactive
[2024-01-20 08:26] VITALS: PULSE 80; O2SAT 98
== END 2024-01-20 09:12 | disposition home or self-care (01) ==
PROVIDERS: PCP Internal Medicine; Visit Provider Nurse Practitioner Family
DX: G43.009 Migraine without aura, not intractable, without status migrainosus (principal); F45.8 Other somatoform disorders; F41.8 Other specified anxiety disorders; F90.2 Attention-deficit hyperactivity disorder, combined type
CPT/HCPCS: 99214

== ENCOUNTER → 2024-01-20 08:07 | Outpatient (BNVA) | payer BC, SELFPAY | PROVIDERS: PCP Internal Medicine; Visit Provider Nurse Practitioner Family ==

== ENCOUNTER 2024-05-23 09:19 | Outpatient (AMB) | payer BC, SELFPAY ==
--- NOTE | 2024-05-23 09:25 | A.OFFVIS_ITS ---
Vital Signs 05/23/24 09:26 Height 5 ft 10 in Weight 175 lb BMI 25.1 BP 108/70 Blood Pressure Location Rt brachial Position Sitting Pulse 74 Pulse Source Pulse Oximeter Pulse Oximetry (%) 98 Oxygen Delivery Method Room Air Intake Visit Reasons: 4m follow up-LVM Intake Note: Patient presents for 4 month follow up. off amitrypline due to having a reaction. Allergies environmental allergies Allergy (Unknown, Verified 05/23/24 09:30) Unknown house dust Allergy (Unknown, Verified 05/23/24 09:30) Unknown pollen extracts Allergy (Unknown, Verified 05/23/24 09:30) Unknown Sulfa (Sulfonamide Antibiotics) Allergy (Verified 05/23/24 09:30) Unknown topiramate Allergy (Verified 05/23/24 09:30) Unknown HPI Comments Details: 29-yr-old female presents for f/u visit. Pt denies any significant interval medical changes. Pt reports she is having 2 migraine headache days per every 2 weeks. She did not tolerate the Amitriptyline. She did not start Emgality- was not approved yet. Using Nurtec ODT 75mg prn- which is now working well, even quicker. But still needs to take an hour or more break from work. She is having her TMJ tx'd- wearing a retainer which is helping. She has left her buddhism, which was causing her more stress. She is looking for a new buddhism home- which has been good for her mood. 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, unspecified Obstruction of nasal valve Disturbance of sleep Vitamin D deficiency Vitamin B12 deficiency TMJ (temporomandibular joint disorder) Bruxism (teeth grinding) Chronic headaches Allergic rhinitis Hx of epistaxis Headache ADHD VSD (ventricular septal defect) ASD (atrial septal defect) PCOS (polycystic ovarian syndrome) Depression with anxiety Surgical History Hx of atrial septal defect repair Hx of ventricular septal defect repair History of surgical removal of pilonidal cyst Family History Father Mental health disorder HTN (hypertension) Mother HTN (hypertension) IBS (irritable bowel syndrome) Sister Anxiety Depression Social History Housing: House Alcohol intake: current Alcohol intake frequency: a few times a month Patient Tobacco Use Status: Never used Tobacco e-Cigarette/Vaping Use: Never Used Current occupational status: employed Cognitive needs: No Hearing needs: No Vision needs: Yes Physical Exam Vital Signs: Last Vital Signs Pulse 74 05/23/24 09:26 BP 108/70 05/23/24 09:26 Pulse Ox 98 05/23/24 09:26 Oxygen Delivery Method Room Air 05/23/24 09:26 BMI result Body Mass Index 25.1 Const General: cooperative and no acute distress Orientation/consciousness: patient oriented x3 Resp Effort & Inspection: normal respiratory effort and able to speak in complete sentences Neuro General: patient oriented x3 Cranial nerves: Yes CN's II-XII intact bilaterally Cognition (Neuro): normal cognition Psych Appearance: grossly normal Mental Status: mental status grossly normal Speech and movement: Normal speech and movement present Affect: normal affect Attitude: cooperative Assessment & Plan Assessment & Plan (1) Migraine: Comment: w/ aura s/s- however visual aura is prolonged Code(s): G43.909 - Migraine, unspecified, not intractable, without status migrainosus Category: Medical Qualifiers: Migraine type: migraine (< 15 days per month) without aura Status migrainosus presence: without status migrainosus Intractability: not intractable Qualified Code(s): G43.009 - Migraine without aura, not intractable, without status migrainosus (2) TMJ (temporomandibular joint disorder): Code(s): M26.609 - Unspecified temporomandibular joint disorder, unspecified side Category: Medical (3) ADHD: Comment: dx in 2019 Code(s): F90.9 - Attention-deficit hyperactivity disorder, unspecified type Category: Medical Qualifiers: Attention deficit-hyperactivity disorder type: combined inattentive- hyperactive Qualified Code(s): F90.2 - Attention-deficit hyperactivity disorder, combined type Plan [facility] f/u as scheduled. Advised to discuss medication options for her ADHD symptoms. Information shared on adult ADHD symptom management. HST- normal. ? For overall headache management: Continue to optimize good self-care, including but not limited to maintaining a healthy diet,? adequate fluid intake, adequate sleep, and engaging in regular physical activity. Track headaches, especially after any treatment regimen changes. ? For acute headache treatment: Zofran 4mg q 4 hrs prn N/V/migraine attack. Continue Nurtec ODT 75mg po qd prn at onset of migraine. May adjunct w/ Tylenol, Ibuprofen, Naproxen, or Pamprin. Previous acute migraine medication trials: Sumatriptan 25mg- some effect, however would not increase d/t tachycardia at rest and h/o cardiac repair. Acute migraine medication contraindications: Triptans- as above ? For headache prevention medication: Magnesium 400mg qhs Amitriptyline stopped- not tolerated. Continue Propranolol ER 60mg?qhs- prescribed for palpitations Will f/u on order for Emgality 240mg sc x's 1, then 120mg sc q month. Previous migraine prevention medication trials: Topiramate- caused contact hives in her hands. Riboflavin 400mg qam- ineffective. Amitriptyline 10mg qhs. Migraine prevention medication contraindications: None at this time ? f/u in 6 months or sooner prn. Medications: Refilled rimegepant (Nurtec ODT) 75 mg orally daily PRN; 30 days 16 tabs 6RF migraine headache Coding Level of Care Code Est Pt Level 4 (68514) Diagnoses Migraine without aura and without status migrainosus, not intractable G43.009 Migraine type: migraine (< 15 days per month) without aura Status migrainosus presence: without status migrainosus Intractability: not intractable TMJ (temporomandibular joint disorder) M26.609 Attention deficit hyperactivity disorder (ADHD), combined type F90.2 Attention deficit-hyperactivity disorder type: combined inattentive- hyperactive
[2024-05-23 09:26] VITALS: BP 108/70; PULSE 74; O2SAT 98; BMI 25.1
== END 2024-05-23 10:35 | disposition home or self-care (01) ==
PROVIDERS: PCP Internal Medicine; Visit Provider Nurse Practitioner Family
DX: G43.009 Migraine without aura, not intractable, without status migrainosus (principal); M26.609 Unspecified temporomandibular joint disorder, unspecified side; F90.2 Attention-deficit hyperactivity disorder, combined type
CPT/HCPCS: 99214

== ENCOUNTER → 2024-05-23 09:19 | Outpatient (BNVA) | payer BC, SELFPAY | PROVIDERS: PCP Internal Medicine; Visit Provider Nurse Practitioner Family ==

== ENCOUNTER 2024-06-30 08:10 | Outpatient (AMB) | payer BC, SELFPAY ==
[2024-06-30 08:15] VITALS: BP 110/60; PULSE 84; O2SAT 98; BMI 25.1
--- NOTE | 2024-06-30 08:15 | AM.OFFWIN_ITS ---
Intake Vital Signs 06/30/24 08:15 Height 5 ft 10 in Weight 175 lb BMI 25.1 BP 110/60 Blood Pressure Location Rt brachial Position Sitting Pulse 84 Pulse Source Pulse Oximeter Pulse Oximetry (%) 98 Oxygen Delivery Method Room Air Intake Visit Reasons: EP nerve pain, bone pain, night sweats, tiredness Intake Note: pt is here for nerve pain, bone pain, night sweats and fatigue Patient Tobacco Use Status: Never used Tobacco Allergies environmental allergies Allergy (Unknown, Verified 06/30/24 08:16) Unknown house dust Allergy (Unknown, Verified 06/30/24 08:16) Unknown pollen extracts Allergy (Unknown, Verified 06/30/24 08:16) Unknown Sulfa (Sulfonamide Antibiotics) Allergy (Verified 06/30/24 08:16) Unknown topiramate Allergy (Verified 06/30/24 08:16) Unknown Do you need a note to return to daycare/school/sports/work: No HPI HPI Comments History of Present Illness Details 29 y/o female patient who presents to [facility] walk [facility] clinic with c/o Joint pains since Thursday. She has h/o Vitamin B12 deficiency and Anemia. She does receive Vitamin B12 Injections (Self administered 1000 MCG) every month. Last Dose was May. Pt was informed to come in for lab work today ordered by PCP. PCP aware of the current symptoms. 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, unspecified Obstruction of nasal valve Disturbance of sleep Vitamin D deficiency Vitamin B12 deficiency TMJ (temporomandibular joint disorder) Bruxism (teeth grinding) Chronic headaches Allergic rhinitis Hx of epistaxis Headache ADHD VSD (ventricular septal defect) ASD (atrial septal defect) PCOS (polycystic ovarian syndrome) Depression with anxiety Surgical History Hx of atrial septal defect repair Hx of ventricular septal defect repair History of surgical removal of pilonidal cyst Family History Father Mental health disorder HTN (hypertension) Mother HTN (hypertension) IBS (irritable bowel syndrome) Sister Anxiety Depression Social History Housing: House Alcohol intake: current Alcohol intake frequency: a few times a month Patient Tobacco Use Status: Never used Tobacco e-Cigarette/Vaping Use: Never Used Current occupational status: employed Cognitive needs: No Hearing needs: No Vision needs: Yes Review of Systems Const All systems reviewed & are unremarkable except as noted in HPI and below Physical Exam Vital Signs: Last Vital Signs Pulse 84 06/30/24 08:15 BP 110/60 06/30/24 08:15 Pulse Ox 98 06/30/24 08:15 Oxygen Delivery Method Room Air 06/30/24 08:15 BMI result Body Mass Index 25.1 Const General: comfortable and no acute distress Orientation/consciousness: patient oriented x3 Neuro General: patient oriented x3, gait normal and moves all extremities Extrem General: Yes normal to inspection and Yes full ROM Psych Speech and movement: Normal speech and movement present Assessment & Plan Assessment & Plan (1) Vitamin B12 deficiency: Code(s): E53.8 - Deficiency of other specified B group vitamins Plan: Labs ordered by PCP, Pt was sent for blood Draw Acetaminophen and NSAIDs for pain relief F/U with PCP Coding Level of Care Code Est Pt Level 3 (49888) Diagnoses Vitamin B12 deficiency E53.8 Time Spent (min) 15
== END 2024-06-30 09:03 | disposition home or self-care (01) ==
PROVIDERS: PCP Internal Medicine; Visit Provider Nurse Practitioner Family
DX: E53.8 Deficiency of other specified B group vitamins (principal)
CPT/HCPCS: 99213

== ENCOUNTER 2024-06-30 08:37 | Outpatient (REF) | payer BC, SELFPAY ==
[2024-06-30 10:06] LABS: MANUAL DIFF FLAG NO
[2024-06-30 10:10] LABS: Basophils Percent Auto 0.5 % (0-2); Eosinophils Absolute Auto 0.1 X10*3/uL (0.0-0.4); Eosinophils Percent Auto 3.6 % (0-4); Hematocrit 36.6 % (37.0-47.0); Hemoglobin 12.8 g/dl (12.0-16.0); Imm Gran Abs Auto 0.01 X10*3/uL (0.00-0.03); Imm Gran Pct Auto 0.3 % (0.0-0.4); Lymphocytes Absolute Auto 1.5 X10*3/uL (1.2-4.9); Lymphocytes Percent Auto 38.9 % (20-40); Mean Corpuscular Hemoglobin 27.8 pg (27.0-33.0); Mean Corpuscular Volume 79.6 fL (80.0-98.0); Mean Platelet Volume 11.6 fL (9.4-12.3); Monocytes Absolute Auto 0.3 X10*3/uL (0.1-1.2); Monocytes Percent Auto 8.4 % (2-11); Neutrophils Absolute Auto 1.9 x10*3/uL (2.0-8.3); Neutrophils Percent Auto 48.3 % (45-73); Platelet Count 269 X10*3/uL (160-400); Red Cell Distribution Width 12.7 % (11.0-16.0); White Blood Count 3.9 X10*3/uL (4.8-10.8)
[2024-06-30 11:40] LABS: Folate 12.9 ng/mL (> or = 4.0); Vitamin B12 602 pg/mL (200-900)
== END 2024-06-30 08:38 | disposition home or self-care (01) ==
LOC: HO.HMGCLDS 08:37
PROVIDERS: PCP Internal Medicine; Visit Provider Internal Medicine
DX: Z86.2 Personal history of diseases of the blood and blood-forming organs and certain disorders involving the immune mechanism (principal); Z86.39 Personal history of other endocrine, nutritional and metabolic disease
CPT/HCPCS: 36415; 82607; 82746; 85025

== ENCOUNTER 2024-08-02 10:07 | Outpatient (AMB) | payer BC, SELFPAY ==
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
[2024-08-02 11:22] VITALS: BP 102/60; PULSE 79; O2SAT 98; BMI 24.0
== END 2024-08-02 13:41 | disposition home or self-care (01) ==
PROVIDERS: PCP Internal Medicine; Visit Provider Internal Medicine
DX: R11.2 Nausea with vomiting, unspecified (principal); D51.0 Vitamin B12 deficiency anemia due to intrinsic factor deficiency; R19.8 Other specified symptoms and signs involving the digestive system and abdomen; G43.009 Migraine without aura, not intractable, without status migrainosus
CPT/HCPCS: 99214

== ENCOUNTER 2024-08-10 08:40 | Outpatient (AMB) | payer BC, SELFPAY ==
[2024-08-10 08:47] VITALS: BP 106/68; PULSE 78; O2SAT 98; BMI 23.7
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
== END 2024-08-10 09:41 | disposition home or self-care (01) ==
PROVIDERS: PCP Internal Medicine; Visit Provider Internal Medicine
DX: Z00.00 Encounter for general adult medical examination without abnormal findings (principal); F41.8 Other specified anxiety disorders; J30.9 Allergic rhinitis, unspecified; M26.609 Unspecified temporomandibular joint disorder, unspecified side; G43.009 Migraine without aura, not intractable, without status migrainosus; D51.0 Vitamin B12 deficiency anemia due to intrinsic factor deficiency
CPT/HCPCS: 99395

== ENCOUNTER 2024-08-10 09:41 | Outpatient (REF) | payer BC, SELFPAY ==
[2024-08-10 14:57] LABS: Alanine Aminotransferase < 5 U/L (0-31); Albumin Level 3.9 g/dL (3.5-5.0); Alkaline Phosphatase 49 U/L (39-117); Anion Gap 10 (12-20); Aspartate Amino Transferase 10 U/L (5-31); Bilirubin Total 0.2 mg/dL (0.0-1.0); Blood Urea Nitrogen 6 mg/dL (9-16); Calcium 9.6 mg/dL (8.4-10.2); Carbon Dioxide 26 mmol/L (22-29); Chloride 106 mmol/L (96-108); Cholesterol 170 mg/dL (<200); Estimated Glomerular Filt Rate > 60; Glucose Fasting 95 mg/dL (60-99); HDL Cholesterol 50 mg/dL (>40); LDL Cholesterol Calculated 87 mg/dL (<100); Potassium 4.3 mmol/L (3.3-5.1); Sodium 138 mmol/L (135-145); Total Protein 7.6 g/dL (6.5-8.0); Triglycerides 166 mg/dL (<150); Vitamin D 25-OH Total 70.3 ng/mL (>30)
== END 2024-08-10 09:42 | disposition home or self-care (01) ==
LOC: HO.HMGCLDS 09:41
PROVIDERS: PCP Internal Medicine; Visit Provider Internal Medicine
DX: Z00.01 Encounter for general adult medical examination with abnormal findings (principal); Z13.1 Encounter for screening for diabetes mellitus; Z13.220 Encounter for screening for lipoid disorders; D51.0 Vitamin B12 deficiency anemia due to intrinsic factor deficiency; G43.009 Migraine without aura, not intractable, without status migrainosus; F41.8 Other specified anxiety disorders
CPT/HCPCS: 36415; 80053; 80061; 82306

== ENCOUNTER 2024-08-13 13:42 | Outpatient (REF) | payer BC, SELFPAY ==
[2024-08-13 15:47] LABS: Thyroid Stimulating Hormone 1.13 uIU/mL (0.32-4.0)
== END 2024-08-13 13:43 | disposition home or self-care (01) ==
LOC: HO.HMGCLDS 13:42
PROVIDERS: PCP Internal Medicine; Visit Provider Physician Assistant
DX: L00-L99 Diseases of the skin and subcutaneous tissue (principal)
CPT/HCPCS: 36415; 84443

== ENCOUNTER → 2024-08-30 09:47 | Outpatient (BNVA) | payer BC, SELFPAY | PROVIDERS: PCP Internal Medicine; Visit Provider Nurse Practitioner Family ==

== ENCOUNTER 2024-11-04 11:19 | Outpatient (AMB) | payer BC, SELFPAY ==
[2024-11-04 11:33] VITALS: BP 108/70; PULSE 66; O2SAT 100; BMI 23.2
--- NOTE | 2024-11-04 11:33 | A.OFFVIS_ITS ---
Vital Signs 11/04/24 11:33 Height 5 ft 10 in Weight 161 lb 6.054 oz BMI 23.2 BP 108/70 Blood Pressure Location Lt brachial Position Sitting Pulse 66 Pulse Source Pulse Oximeter Pulse Oximetry (%) 100 Oxygen Delivery Method Room Air Intake Visit Reasons: Vit B12 Def Anemia Intake Note: Tammy presents in office today for a scheduled initial assessment/consult CC; Relevant GI Sx as reported per pt? Pt reports intermittent constipation and diarrhea. Pt also reports that anemia has been chronic and her PCP forgot to send her to GI for over 1 year. Prior hx of GERD. Intermittent episodes of reflux. ? Recent hx of relevant surgeries? No prior hx of GI related surgeries. * Labs done July 2024. No imaging. * Pharmacy? [facility] [address] * FMHx of IBS. No other pertinent information. Agent Ticketing Gate Required: No Allergies environmental allergies Allergy (Unknown, Verified 11/04/24 11:34) Unknown house dust Allergy (Unknown, Verified 11/04/24 11:34) Unknown pollen extracts Allergy (Unknown, Verified 11/04/24 11:34) Unknown Sulfa (Sulfonamide Antibiotics) Allergy (Verified 11/04/24 11:34) Unknown topiramate Allergy (Verified 11/04/24 11:34) Unknown atomoxetine Adverse Reaction (Verified 11/04/24 11:34) tinnitus HPI HPI Vit B12 Def Anemia: Details: 29-year-old female with past medical history of diplopia, seborrheic dermatitis, pernicious anemia, diagnosed couple years ago, congenital heart disease, history of ventricular septal defect repair, ADHD, PCOS, depression, anxiety is here for initial consultation. Patient was sent by her PCP to evaluate the pernicious anemia and possible upper endoscopy screening. Patient denies any melena, hematochezia, unintentional weight loss or ribbon like stools. Patient reports that frequently she will have postprandial loose stools depending on what she eats. Patient does have multiple food sensitivities to lot of difference fluids. Patient reports that also depends how much of certain food she will eat. Recently patient had micro greens that were different variety and she ate the whole package and she had loose stools after. Patient otherwise suffers from constipation that alternates with loose stools. Patient reports occasional abdominal bloating. Denies any nausea or vomiting. [facility] Medical History Seborrheic dermatitis Alternating constipation and diarrhea Nausea & vomiting Anemia, pernicious Personal history of (corrected) congenital malformations of heart and circulatory system Nonrheumatic pulmonary valve insufficiency Nonrheumatic tricuspid (valve) insufficiency Partial anomalous pulmonary venous connection Congenital malformation of cardiac septum, unspecified Obstruction of nasal valve Disturbance of sleep Vitamin D deficiency Vitamin B12 deficiency TMJ (temporomandibular joint disorder) Bruxism (teeth grinding) Chronic headaches Allergic rhinitis Hx of epistaxis ADHD VSD (ventricular septal defect) ASD (atrial septal defect) PCOS (polycystic ovarian syndrome) Depression with anxiety Surgical History Hx of atrial septal defect repair Hx of ventricular septal defect repair History of surgical removal of pilonidal cyst Family History Father Mental health disorder HTN (hypertension) Mother HTN (hypertension) IBS (irritable bowel syndrome) Sister Anxiety Depression Social History Housing: House Alcohol intake: current Alcohol intake frequency: a few times a month Patient Tobacco Use Status: Never used Tobacco e-Cigarette/Vaping Use: Never Used Current occupational status: employed Cognitive needs: No Hearing needs: No Vision needs: Yes Review of Systems Const Denies weight gain and Denies weight loss ENT Reports no additional complaints, Denies dysphagia and Denies odynophagia Card Reports no additional complaints Resp Reports no additional complaints GI Denies abdominal pain, Denies belching, Denies melena, Reports bloating, Denies change in bowel habits, Reports tenesmus (Postprandially), Reports constipation, Denies dysphagia, Denies excessive flatus, Denies dyspepsia, Reports heartburn (Occasional), Denies diarrhea, Reports loose stools, Denies nausea, Denies odynophagia and Denies vomiting Reports no additional complaints Musc Reports no additional complaints Neuro Reports no additional complaints Psych Reports no additional complaints Endo Reports no additional complaints Physical Exam Vital Signs: Last Vital Signs Pulse 66 11/04/24 11:33 BP 108/70 11/04/24 11:33 Pulse Ox 100 11/04/24 11:33 Oxygen Delivery Method Room Air 11/04/24 11:33 BMI result Body Mass Index 23.2 Const General: healthy appearing, no acute distress and well developed Nutritional Appearance: well nourished Orientation/consciousness: patient oriented x3 Resp Effort & Inspection: normal respiratory effort, able to speak in complete sentences, no tracheal deviation and symmetric chest movement Auscultation: clear to auscultation bilaterally Cardio Rate: regular rate GI Inspection: Yes normal to inspection and No distended Palpation (GI): Soft to palpation, not firm, nontender and No hepatosplenomegaly present Auscultation: normal bowel sounds General: Yes no CVA tenderness Back/Spine/Pelvis Back: no CVA tenderness Skin General skin exam: elasticity normal, turgor normal and dry skin Neuro General: patient oriented x3 Psych Appearance: grossly normal Mental Status: mental status grossly normal Assessment & Plan Assessment & Plan (1) Anemia, pernicious: Code(s): D51.0 - Vitamin B12 deficiency anemia due to intrinsic factor deficiency Category: Medical (2) Nausea & vomiting: Code(s): R11.2 - Nausea with vomiting, unspecified Category: Medical Qualifiers: Vomiting type: unspecified Qualified Code(s): R11.2 - Nausea with vomiting, unspecified (3) Postprandial diarrhea: Code(s): K52.9 - Noninfective gastroenteritis and colitis, unspecified (4) Postprandial epigastric pain: Code(s): R10.13 - Epigastric pain Plan Will check iron profile. Will rule out celiac. Postprandial epigastric pain occasionally. Patient was encouraged to avoid dietary triggers and eating small portions. Patient was encouraged to start taking probiotics and fiber. Increase fluid intake and activity to promote better bowel motility. Will send patient to Hematology to be evaluated. Currently patient is taking vitamin B12 injections every month. Patient will return in 3 months to discuss going for upper endoscopy. Message sent to surgical schedulers to book upper endoscopy and colonoscopy. Patient does have change in her bowel pattern. She is agreeable to this plan and verbalizes understanding of instructions. She was given the opportunity to ask questions and all questions answered. Thank you for allowing me to participate in her care Orders: Orders IRON PROFILE Today D64.9 - Anemia, unspecified Transglutaminase IgA Today R10.9 - Unspecified abdominal pain Referrals Hematology & Oncology Referral D51.0 - Vitamin B12 deficiency anemia due to intrinsic factor deficiency Coding Level of Care Code New Pt Level 4 (70028) Diagnoses Anemia, pernicious D51.0 Nausea and vomiting, unspecified vomiting type R11.2 Vomiting type: unspecified Postprandial diarrhea K52.9 Postprandial epigastric pain R10.13 Time Spent (min) 45 Comment 30 minutes spent with patient and additional 10 minutes spent reviewing her r ecords
== END 2024-11-04 12:38 | disposition home or self-care (01) ==
PROVIDERS: PCP Internal Medicine; Visit Provider Nurse Practitioner Family
DX: D51.0 Vitamin B12 deficiency anemia due to intrinsic factor deficiency (principal); R11.2 Nausea with vomiting, unspecified; K52.9 Noninfective gastroenteritis and colitis, unspecified; R10.13 Epigastric pain
CPT/HCPCS: 99204

== ENCOUNTER 2024-11-04 11:19 | Outpatient (REF) | payer BC, SELFPAY ==
[2024-11-04 13:50] LABS: Iron 100 mcg/dL (30-160); Percent Iron Saturation 32 % (15-50); Total Iron Binding Capacity 313 mcg/dL (228-428); Unsaturated Iron Binding 213 ug/dL
[2024-11-07 22:33] LABS: Transglutaminase IgA <1.0 U/mL
--- OUTSIDE RECORDS SUMMARY | 2024-11-09 08:24 | XMS_ITS | Data Portability ---
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 Plan of Treatment Reminders Order Date Submit Date Provider Last Modified By Organization Details Last Modified Time Details Appointments None recorded. Lab SARS CoV 2 (COVID-19) Ag, QL, IA, upper respiratory specimen 2022 023 [email or web address] [address], [address] [place], [address], 09:39:17 Referral None recorded. Procedures None recorded. Surgeries None recorded. Imaging None recorded. Medication Orders ketorolac 60 mg/2 mL intramuscul ar solution 2022 023 Not available 08:48:02 amoxicillin 875 mg-potassiu m clavulanate 125 mg tablet 2022 023 [email or web address] [id number], [address] [place], [address], 15:12:51 Patient TargetsNo targets recorded. Patient Instructions Encounter Date Encounter Id Patient Instructions Last Modified By Organization Details Last Modified Time 12/26/2022 [id number] headache: care instructions [email or web address] Not available 12/26/2022 09:37:29 Continue your regular treatment plan at home. [email or web address] Not available 12/26/2022 09:36:07 11/05/2023 [id number] ear infection (otitis media): care instructions Not available 11/05/2023 09:40:09 cough: care instructions Not available 11/05/2023 09:39:15 Reason for Referral None Reported. Results Created Date Observation Date Name Description Value Unit Range Abnormal Flag Note LastModifiedBy Organization Detail LastModifiedTime 11/05/20 23 11/05/2023 SARS CoV 2 (COVI D-19) Ag, QL, IA, upper respi rator y speci men Unknown Analyte negati ve Not Available [address] [place], [address], 11/05/2023 08:50:13 Result Notes None recorded. Problems Name Problem SNOMED Code Status Onset Date Resolution Date Notes Provider Name and Address Organization Details Recorded Time Tachycardia 3712449 Active KATERINE DEPINTO null, PA - [facility] 08:49:14 Pernicious anemia 69154253 Active KATERINE DEPINTO null, PA - [facility] 08:49:19 Migraine 13264571 Active NEL GOMEZ-JANICEE RA null, PA - [facility] 08:56:59 Problem Notes None recorded. Procedures Surgical History Date Name Laterality Status Provider Name and Address Organization Details Recorded Time open heart surgery completed NEL MENDOZA PA - [facility] 12/26/2022 08:57:57 removal of pilonidal cyst completed NELDANIEL GOMEZ-ZIEGLER PA - [facility] 12/26/2022 08:58:12 Imaging Results None recorded. Procedure Notes None recorded. Medical Equipment None Reported. Allergies Allergen ID Allergen Name Allergen Category Reaction Reaction Severity Criticality Documentation Date Start Date Code Code System Note Provider Name and Address Organization Details Recorded Time 540605 Substance with sulfonami de structure and antibacte rial mechanism of action (substanc e) medicatio n other Not available Not available 12/26/2022 38446 8003 SNOMED NEL ABURTO RA null, PA - [facility] 3 08:55:56 111300 topiramat e medicatio n rash Not available Not available 12/26/2022 54863 RxNorm GONZALO Joiner RA - [facility] 3 08:56:06 Medications Name Sig Start Date Stop Date Status Note LastModified by Organization Details LastModified Time azithromyc in 250 mg tablet TAKE 2 TABLETS DAILY X 2 WEEKS*IN SURANCE WILL ONLY COVER 6 TABLETS AT A TIME 12/26 completed Not Available Not Available Not Available benzonatat e 200 mg capsule TAKE 1 CAPSULE (ORAL) 3 TIMES PER DAY NEEDED - COUGH FOR 7 DAYS 12/26 completed Not Available Not Available Not Available tretinoin 0.025 % topical cream APPLY TO AFFECTED AREA AT BEDTIME 12/26 completed Not Available Not Available Not Available sumatripta n 25 mg tablet TAKE 1 TABLET BY MOUTH EVERY 4 HOURS NEEDED FOR MIGRAINE HEADACHE .MAX 8 DOSES/24 HRS 11/05 completed Not Available Not Available Not Available ondansetro n HCl 4 mg tablet TAKE 1 TABLET (4 MG) BY MOUTH EVERY 6 HOURS NEEDED FOR NAUSEA AND VOMITING FOR 30 DAYS active Not Available Not Available No t Available propranolo l ER 60 mg capsule,24 hr,extende d release TAKE 1 CAPSULE BY MOUTH AT BEDTIME FOR 30 DAYS active Not Available Not Available No t Available sumatripta n 50 mg tablet PLEASE SEE ATTACHED FOR DETAILED DIRECTIO NS active has not taken in a couple months Not Available Not Available Not Available betamethas one valerate 0.1 % lotion active Not Available Not Available Not Available amoxicilli n 500 mg tablet TAKE 1 TABLET BY MOUTH EVERY 6 HOURS UNTIL GONE 11/05 completed Not Available Not Available Not Available citalopram 20 mg tablet TAKE 1 TABLET BY MOUTH EVERY DAY active Not Available Not Available No t Available magnesium oxide 400 mg (241.3 mg magnesium) tablet TAKE 1 TABLET (400MG) BY MOUTH BEDTIME FOR 30 DAYS MAY HOLD FOR LOOSE STOOLS active Not Available Not Available No t Available amitriptyl ine 10 mg tablet TAKE 1 TABLET BY MOUTH AT BEDTIME active Not Available Not Available No t Available cyanocobal somers (vit B-12) 1,000 mcg/mL injection solution INJECT 1 ML INTRAMUS CULARLY ONCE A WEEK FOR 4 WEEKS, THEN MONTHLY THEREAFT ER active Not Available Not Available No t Available oseltamivi r 75 mg capsule TAKE 1 CAPSULE BY MOUTH TWICE A DAY FOR 5 DAYS 12/26 completed Not Available Not Available Not Available prednisone 50 mg tablet TAKE 1 TABLET (ORAL) EVERY AM FOR 3 DAYS 12/26 completed Not Available Not Available Not Available epinephrin e 0.3 mg/0.3 mL injection, auto-injec tor INJECT 1 PEN INTO MUSCLE ONCE NEEDED active Not Available Not Available No t Available ketorolac 60 mg/2 mL intramuscu lar solution Inject 2 mL by intramus cular route. 11/05 completed Not Available Not Available Not Available BD Luer-Korey Syringe 3 mL 22 gauge x 1 DIRECTED TO INJECT VITAMIN B-12 *3ML 23 G 1 IN* active Not Available Not Available No t Available amoxicilli n 875 mg-potassi um clavulanat e 125 mg tablet Take 1 tablet every 12 hours by oral route for 10 days. 2022 active Not Available Not Available Not Avai lable azithromyc in 500 mg tablet TAKE ONE TABLET BY MOUTH EVERY DAY 12/26 completed Not Available Not Available Not Available chlorhexid ine gluconate 0.12 % mouthwash PLEASE SEE ATTACHED FOR DETAILED DIRECTIO NS active Not Available Not Available No t Available loratadine active Not Available Not Av ailable Not Available sodium fluoride 1.1 %-potassiu m nitrate 5 % dental paste USE 2-3X/WES LY, SPIT OUT EXCESS DO NOT RINSE WITH WATER. NO EATING OR DRINKING FOR 45 MIN AFTER. active Not Available Not Available No t Available drospiren- e.estrad-l .mefol 3 mg-0.02 mg-0.451 mg(24)/0.4 51 mg(4)table t TAKE 1 TABLET BY MOUTH EVERY DAY active Not Available Not Available No t Available riboflavin (vitamin B2) 400 mg tablet TAKE 1 TABLET (400 MG) BY MOUTH DAILY FOR 30 DAYS active Not Available Not Available No t Available Nurtec ODT 75 mg disintegra ting tablet TAKE 1 TABLET BY MOUTH DAILY NEEDED FOR MIGRAINE HEADACHE FOR 30 DAYS active Not Available Not Available No t Available Paxlovid 300 mg (150 mg x 2)-100 mg tablets in a dose pack TAKE 3 TABLETS BY MOUTH TWICE A DAY FOR 5 DAYS 12/26 completed Not Available Not Available Not Available Vitals Date Recorded Body height Body mass index (BMI) Body weight Respiratory rate Body temperature Oxygen saturation Oxygen saturation in Arterial blood by Pulse oximetry Heart rate Systolic blood pressure Diastolic blood pressure Provider Name and Address Organization Details Last Updated DateTime 3 175.26 cm 26.6 kg/m2 98873.6 3 g 18 /min 97.8 [degF] 97 % 97 % 92 /min 111 mm[Hg] 76 mm[Hg] KATERINE KIMBALL PA - [facility] 3 08:51:18 Date Recorded Body height Body mass index (BMI) Body weight Respiratory rate Oxygen saturation Oxygen saturation in Arterial blood by Pulse oximetry Heart rate Body temperature Systolic blood pressure Diastolic blood pressure Provider Name and Address Organization Details Last Updated DateTime 3 175.26 cm 25.8 kg/m2 58346.6 6 g 17 /min 100 % 100 % 95 /min 97.2 [degF] 107 mm[Hg] 70 mm[Hg] NEL ABURTO RA PA - [facility] 3 08:59:51 Social History Question Answer Notes LastModified by Organizat ion Details LastModified Time Tobacco Smoking Status Never Smoker NEL proctor PA - [facility] 12/26/2022 08:57:41 What Is Your Level Of Alcohol Consumption? Occasional Information not available 12/26/2022 How Many Times Per Week Do You Consume Alcohol? Less Than 1 Time Per Week Information not available 11/05/2023 Are You Currently Employed? Yes Information not available 11/05/2023 Have You Had A Flu Shot This Season? Yes Information not available 11/05/2023 If No, Would You Like A Flu Shot Today? A/P Information not available 11/05/2023 Have You Had Direct Contact, Or Contact During Intimacy, With Monkeypox Rash, Scabs, Or Body Fluids From A Person With Monkeypox? No Information not available 12/26/2022 Do You Use Any Illicit Or Recreational Drugs? No Information not available 12/26/2022 Have You Recently Traveled Abroad? No Information not available 12/26/2022 Are You Currently In School? No Information not available 11/05/2023 Do You Or Have You Ever Used Any Other Forms Of Tobacco Or Nicotine? No Information not available 12/26/2022 Sex: Unknown Functional Status None recorded. Mental Status None recorded. Family History Relationship Description Onset Age of this Age Resolved Age Notes LastModified by Organization Details LastModified Time Father Hypertensive disorder Not available 08:57:25 Mother Hypertensive disorder Not available 08:57:25 Mother Cardiac arrhythmia Not available 08:57:30 Medical History No medical history recorded. Gynecological History Statement/Question Response Date of LMP Is there any chance of ? No LMP Approximate Obstetrics History GPAL:G 0 P 0 0 0 0 Immunizations Vaccine Type Date Status Note Provider Nam e and Address Organization Details Recorded Time IPV 0 completed NEL GOMEZ-ZIEGLER null, PA - [facility] 12/26/2022 08:55:00 Influenza, MDCK, quadrivalent, preservative 9 completed NEL GOMEZ-ZIEGLER null, PA - [facility] 12/26/2022 08:55:00 MMR 6 completed NEL GOMEZ-ZIEGLER null, PA - [facility] 12/26/2022 08:55:00 MMR 0 completed NEL GOMEZ-ZIEGLER null, PA - [facility] 12/26/2022 08:55:00 COVID-19, mRNA, LNP-S, PF, 30 mcg/0.3 mL dose 1 completed NEL GOMEZ-ZIEGLER null, PA - [facility] 12/26/2022 08:55:00 COVID-19, mRNA, LNP-S, PF, 30 mcg/0.3 mL dose 1 completed NEL GOMEZ-ZIEGLER null, PA - [facility] 12/26/2022 08:55:00 COVID-19, mRNA, LNP-S, PF, 30 mcg/0.3 mL dose 1 completed NEL GOMEZ-ZIEGLER null, PA - [facility] 12/26/2022 08:55:00 COVID-19, mRNA, LNP-S, bivalent, PF, 30 mcg/0.3 mL dose 2 completed NEL GOMEZ-ZIEGLER null, PA - [facility] 12/26/2022 08:55:00 Tdap 7 completed NEL GOMEZ-ZIEGLER null, PA - [facility] 12/26/2022 08:55:00 Tdap 7 completed NEL GOMEZ-ZIEGLER null, PA - [facility] 12/26/2022 08:55:00 varicella 1 completed NEL GOMEZ-ZIEGLER null, PA - [facility] 12/26/2022 08:55:00 varicella 9 completed NEL GOMEZ-ZIEGLER null, PA - [facility] 12/26/2022 08:55:00 DTP 5 completed NEL GOMEZ-ZIEGLER null, PA - [facility] 12/26/2022 08:55:00 DTP 5 completed NEL GOMEZ-ZIEGLER null, PA - [facility] 12/26/2022 08:55:00 DTP 6 completed NEL GOMEZ-ZIEGLER null, PA - [facility] 12/26/2022 08:55:00 DTP 5 completed NEL GOMEZ-ZIEGLER null, PA - [facility] 12/26/2022 08:55:00 OPV 5 completed NEL GOMEZ-ZIEGLER null, PA - [facility] 12/26/2022 08:55:00 OPV 5 completed NEL GOMEZ-ZIEGLER null, PA - [facility] 12/26/2022 08:55:00 OPV 6 completed NEL GOMEZ-ZIEGLER null, PA - [facility] 12/26/2022 08:55:00 OPV 5 completed NEL GOMEZ-ZIEGLER null, PA - [facility] 12/26/2022 08:55:00 Influenza, split virus, trivalent, preservative 1 completed NEL GOMEZ-ZIEGLER null, PA - [facility] 12/26/2022 08:55:00 Influenza, split virus, trivalent, preservative 9 completed NEL GOMEZ-ZIEGLER null, PA - [facility] 12/26/2022 08:55:00 Influenza, split virus, trivalent, preservative 0 completed NEL GOMEZ-ZIEGLER null, PA - [facility] 12/26/2022 08:55:00 Influenza, split virus, trivalent, preservative 3 completed NEL GOMEZ-ZIEGLER null, PA - [facility] 12/26/2022 08:55:00 Influenza, split virus, trivalent, preservative 2 completed NEL GOMEZ-ZIEGLER null, PA - [facility] 12/26/2022 08:55:00 Influenza, split virus, trivalent, PF 8 completed NEL GOMEZ-ZIEGLER null, PA - [facility] 12/26/2022 08:55:00 Novel [id number], preservative-free 0 completed NEL GOMEZ-ZIEGLER null, PA - [facility] 12/26/2022 08:55:00 HPV, quadrivalent 7 completed NEL GOMEZ-ZIEGLER null, PA - [facility] 12/26/2022 08:55:00 HPV, quadrivalent 7 completed NEL GOMEZ-ZIEGLER null, PA - [facility] 12/26/2022 08:55:00 HPV, quadrivalent 7 completed NEL GOMEZ-ZIEGLER null, PA - [facility] 12/26/2022 08:55:00 Hep B, adolescent or pediatric 5 completed NEL GOMEZ-ZIEGLER null, PA - [facility] 12/26/2022 08:55:00 Hep B, adolescent or pediatric 5 completed NEL GOMEZ-ZIEGLER null, PA - [facility] 12/26/2022 08:55:00 Hep B, adolescent or pediatric 5 completed NEL GOMEZ-ZIEGLER null, PA - [facility] 12/26/2022 08:55:00 Hib (HbOC) 5 completed NEL GOMEZ-ZIEGLER null, PA - [facility] 12/26/2022 08:55:00 Hib (HbOC) 5 completed NEL GOMEZ-ZIEGLER null, PA - [facility] 12/26/2022 08:55:00 Hib (HbOC) 6 completed NEL GOMEZ-ZIEGLER null, PA - [facility] 12/26/2022 08:55:00 Hib (HbOC) 5 completed NEL GOMEZ-ZIEGLER null, PA - [facility] 12/26/2022 08:55:00 meningococcal MCV4P 1 completed NEL GOMEZ-ZIEGLER null, PA - [facility] 12/26/2022 08:55:00 DTaP 0 completed NEL GOMEZ-ZIEGLER null, PA - [facility] 12/26/2022 08:55:00 Influenza, split virus, quadrivalent, PF 8 completed NEL GOMEZ-ZIEGLER null, PA - [facility] 12/26/2022 08:55:00 Influenza, split virus, quadrivalent, PF 1 completed NEL GOMEZ-ZIEGLER null, PA - [facility] 12/26/2022 08:55:00 Influenza, split virus, quadrivalent, PF 2 completed NEL GOMEZ-ZIEGLER null, PA - [facility] 12/26/2022 08:55:00 COVID-19, mRNA, LNP-S, PF, carlos-sucrose, 30 mcg/0.3 mL 3 completed KATERINE DEPINTO null, PA - [facility] 11/05/2023 08:46:23 Influenza, split virus, quadrivalent, PF 3 completed KATERINE DEPINTO null, PA - [facility] 11/05/2023 08:46:23 Past Encounters Encounter ID Performer Location Encounter Start Date Encounter Closed Date Diagnosis/Indication Diagnosis SNOMED-CT Code Diagnosis ICD10 Code [id number] [facility] [address], [place] [address] 02/27/2022 08:55:38 02/27/2022 10:04:35 [id number] [facility] [address], [place] [address] 06/24/2020 13:12:00 06/24/2020 14:11:50 [id number] [facility] [address], [place] [address] 01/10/2022 09:19:54 01/10/2022 10:12:28 [id number] [address] [facility] [address], [place] [address] 01/28/2021 08:33:58 01/28/2021 09:20:34 [id number] [address] [facility] [place] [address] 02/07/2021 08:08:43 02/07/2021 09:44:20 [id number] [address] [facility] [address], [place] [address] 05/16/2020 19:04:51 05/16/2020 19:51:35 [id number] [facility] [place] [address] 08/16/2018 12:19:29 08/16/2018 14:34:38 [id number] BA MIMS MD [id number] [facility] [place] [address] 12/26/2022 08:36:25 12/26/2022 09:38:19 Chronic migraine without aura 3088588322 91123 G43.709 [id number] Mili Rosales NP [address] [facility], [place] [address] 11/05/2023 08:17:12 11/05/2023 09:40:45 Upper respiratory infection 20914044 J06.9 Acute left otitis media 510758773 H66.92 Health Concerns Section Related Observation LastModified by Organization Detai ls LastModified Time None Recorded Concern Status LastModified by Organization Details LastModified Time None Recorded Advance Directives Directive None Recorded Payers Encounter Date Sequence Insurance Name Policy Number Policy [place] Covered Member ID [place] Member ID Guarantor Name 02/07/2021 1 [place] [id number] Tammy S Driss [id number] Tammy Driss 01/10/2022 1 [place] [id number] Tammy S Driss [id number] Tammy Driss 02/27/2022 1 [place] [id number] Tammy S Driss [id number] Tammy Driss 12/26/2022 1 [place] [id number] Tammy S Driss [id number] Tammy Driss 11/05/2023 1 [place] [id number] Tammy S Driss [id number] Tammy Driss Notes Date Note Type Note Provider Name and Address Organization Details Recorded Time 3 text/html Ear Pain Brief HPIReported bypatient.Location:[facility] Onset/Timing:new onset; started 2days ago Duration:pain lasts ; constant pain Quality:no itching; no discharge from the ears; no burning Severity:no fever Context:no recent URI She states she has had a migraine headache for 1-2 weeks with little improvement on her current treatment plan. she has also had increased tenderness behind each ear. Afebrile. No vision changes. no nausea. BA MIMS MD [address] [facility] [place], [address], PA - [facility] 12/26/2022 09:42:05 3 text/html CoughReported bypatient.source of patient informationInformation obtained from patient; Patient arrived at Urgent Care ambulatory Quality:productive cough;dry and wet; symptoms worse with lying down Severity:moderate Duration:3 days Timing:gradual Context:family members ill with similar symptoms; Patient denies vaping; non-smoker Modifying Factors:at night Associated Symptoms:no fever; no chills; no chest pain; no heartburn; no nausea; no vomiting; no edema; no agitation; no wheezing; no post nasal drip Patient presents with bilateral ear pain , x 3 days productive cough with mucous getting darker, feeling feverish at night/night sweats, had sore neck from gagging, tired. Sore throat with swallowing Mili Rosales NP [address] [facility], [address], PA - [facility] 11/22/2023 15:16:33 OBGyn Episode No OBEpisode recorded.
== END 2024-11-04 11:20 | disposition home or self-care (01) ==
LOC: HO.LAB 11:19
PROVIDERS: PCP Internal Medicine; Visit Provider Nurse Practitioner Family
DX: D64.9 Anemia, unspecified (principal); R10.9 Unspecified abdominal pain
CPT/HCPCS: 36415; 83540; 86364

== ENCOUNTER 2024-12-20 09:31 | Outpatient (AMB) | payer BC, SELFPAY ==
[2024-12-20 09:45] VITALS: BP 104/66; PULSE 74; O2SAT 99; BMI 22.7
--- NOTE | 2024-12-20 09:45 | A.OFFVIS_ITS ---
Vital Signs 12/20/24 09:45 Height 5 ft 10 in Weight 158 lb 2 oz BMI 22.7 BP 104/66 Blood Pressure Location Rt brachial Position Sitting Pulse 74 Pulse Source Pulse Oximeter Pulse Oximetry (%) 99 Oxygen Delivery Method Room Air Intake Visit Reasons: Follow up Intake Note: patient been forget more lately(brain fog) Allergies environmental allergies Allergy (Unknown, Verified 12/20/24 09:47) Unknown house dust Allergy (Unknown, Verified 12/20/24 09:47) Unknown pollen extracts Allergy (Unknown, Verified 12/20/24 09:47) Unknown Sulfa (Sulfonamide Antibiotics) Allergy (Verified 12/20/24 09:47) Unknown topiramate Allergy (Verified 12/20/24 09:47) Unknown atomoxetine Adverse Reaction (Verified 12/20/24 09:47) tinnitus Medication List - Last Reconciled 12/20/24 by KESHIA Esposito citalopram 10 mg PO DAILY citalopram 20 mg PO DAILY clotrimazole-betamethasone 1-0.05 % appl topical cyanocobalamin (vitamin B-12) Inject 1 mL(1000 mcg) intramuscularly once a week for 4 weeks, then monthly thereafter 1 week drospirenone-e.estradiol-lm.FA 3-0.02-0.451 mg (24) (4) (Beyaz (28)) 1 tab PO DAILY famotidine 40 mg PO DAILY galcanezumab-gnlm (Emgality Pen) 240 mg (2 mL) subcut ONCE 30 days loratadine (Allergy Relief (loratadine)) 10 mg PO DAILY magnesium oxide 400 mg PO BEDTIME 30 days ondansetron HCl 4 mg PO Q6H PRN 30 days prednisone 40 mg (2 x 20 mg) PO DAILY 5 days propranolol ER 60 mg PO BEDTIME 30 days rimegepant (Nurtec ODT) 75 mg orally daily PRN; 30 days syringe with needle (BD Luer-Korey Syringe) As directed to inject vitamin B-12 trazodone 50 mg PO DAILY HPI Comments Details: 29-yr-old female presents for f/u visit of migraine. Pt reports she has had a reduction in her monthly migraine days and severity of migraine attacks since starting Emgality. Prior to starting Emgality she would have 4 migraine attacks per month which could last up to 3 days each. She is tolerating Emgality well, but does make sure to remove from refrigerator at least 1 hour to reduce injection discomfort. She states that her insurance has only been approving her Emgality for three- month periods, which does make it difficult to stay consistent with use. Pt reports she is currently having 2 migraine headache days per month. Though she is overall photophobic. Using Nurtec ODT 75mg prn- which continues to be effective well.. She is continuing to treat her TMJ s/s- wearing a retainer which is helping. She is finding that she is more foggy, confused, and having difficulty at work and at home. Notes that sometimes she will forget something told to her either at home or at work. She may forget to do her household tasks. If she is engaged in something, she may forget to eat. She has had some weight loss. She is also followed by GI. She has been having some increased stress at home, related to her grandmother needing some assistance with healthcare issues. Was tried on atomoxetine but this caused hearing issues/tinnitus. Patient states her current psychiatric provider we will not trial her on a stimulant type ADHD tx and has requested that she see a psychiatrist with experience in people with cardiac conditions. She is hesitant to add another specialist to her care team. However, she does have a upcoming appointment with [facility] adult cardiology clinic. Has plans to have a stress test to assess if she can safely take stimulant ADHD tx. 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, unspecified Obstruction of nasal valve Disturbance of sleep Vitamin D deficiency Vitamin B12 deficiency TMJ (temporomandibular joint disorder) Bruxism (teeth grinding) Chronic headaches Allergic rhinitis Hx of epistaxis ADHD VSD (ventricular septal defect) ASD (atrial septal defect) PCOS (polycystic ovarian syndrome) Depression with anxiety Surgical History Hx of atrial septal defect repair Hx of ventricular septal defect repair History of surgical removal of pilonidal cyst Family History Father Mental health disorder HTN (hypertension) Mother HTN (hypertension) IBS (irritable bowel syndrome) Sister Anxiety Depression Social History Housing: House Alcohol intake: current Alcohol intake frequency: a few times a month Patient Tobacco Use Status: Never used Tobacco e-Cigarette/Vaping Use: Never Used Current occupational status: employed Cognitive needs: No Hearing needs: No Vision needs: Yes Physical Exam Vital Signs: Last Vital Signs Pulse 74 12/20/24 09:45 BP 104/66 12/20/24 09:45 Pulse Ox 99 12/20/24 09:45 Oxygen Delivery Method Room Air 12/20/24 09:45 BMI result Body Mass Index 22.7 Const General: cooperative and no acute distress Orientation/consciousness: patient oriented x3 Resp Effort & Inspection: normal respiratory effort and able to speak in complete sentences Neuro General: patient oriented x3 Cranial nerves: Yes CN's II-XII intact bilaterally Cognition (Neuro): normal cognition Psych Appearance: grossly normal Mental Status: mental status grossly normal Speech and movement: Normal speech and movement present Affect: normal affect Attitude: cooperative Assessment & Plan Assessment & Plan (1) Migraine: Comment: w/ aura s/s- however visual aura is prolonged Code(s): G43.909 - Migraine, unspecified, not intractable, without status migrainosus Category: Medical Qualifiers: Migraine type: migraine (< 15 days per month) without aura Status migrainosus presence: without status migrainosus Intractability: not intractable Qualified Code(s): G43.009 - Migraine without aura, not intractable, without status migrainosus (2) TMJ (temporomandibular joint disorder): Comment: Relieved by wearing mouth guard, sees [facility] in [facility] Code(s): M26.609 - Unspecified temporomandibular joint disorder, unspecified side Category: Medical (3) ADHD: Comment: dx in 2019 Code(s): F90.9 - Attention-deficit hyperactivity disorder, unspecified type Category: Medical Qualifiers: Attention deficit-hyperactivity disorder type: combined inattentive-hyperactive Qualified Code(s): F90.2 - Attention-deficit hyperactivity disorder, combined type Plan For cognition in setting of adult ADHD: Patient would benefit from optimizing management of her ADHD s/s. [facility]ology f/u as scheduled. Cardiac stress test as planned. Advise patient to accept referral to alternate psychiatric provider. Information shared on adult ADHD symptom management. HST- normal. ? For overall headache management: Continue to optimize good self-care, including but not limited to maintaining a healthy diet,? adequate fluid intake, adequate sleep, and engaging in regular physical activity. Track headaches, especially after any treatment regimen changes. For acute headache treatment: Zofran 4mg q 4 hrs prn N/V/migraine attack. Continue Nurtec ODT 75mg po qd prn at onset of migraine. May adjunct w/ Tylenol, Ibuprofen, Naproxen, or Pamprin. Previous acute migraine medication trials: Sumatriptan 25mg- some effect, however would not increase d/t tachycardia at rest and h/o cardiac repair. Acute migraine medication contraindications: Triptans- as above ? For headache prevention medication: Magnesium 400mg qhs Continue Propranolol ER 60mg?qhs- prescribed for palpitations Continue Emgality 120 mg subcu q.month, as patient has had greater than 50% reduction in monthly migraine days. Her current authorization expires 01/31/2025, we request prior authorization renewal approximately 30 days prior to expiration. Previous migraine prevention medication trials: Topiramate- caused contact hives in her hands. Riboflavin 400mg qam- ineffective. Amitriptyline 10mg qhs- not tolerated.. Migraine prevention medication contraindications: None at this time ? f/u in 6 months or sooner prn. Medications: Changed From galcanezumab-gnlm (Emgality Pen) Loading dose: 120 mg subcu injection x2 in alternate sites (total 240 mg). To be followed by maintenance dose of 120 mg subcu q.month. 240 mg (2 mL) subcut ONCE 30 days 1 mL 6RF To galcanezumab-gnlm (Emgality Pen) Maintenance dose of 120 mg subcu q.month. 240 mg (2 mL) subcut ONCE 30 days 1 mL 6RF Refilled propranolol ER 60 mg PO BEDTIME 30 days 30 caps 6RF rimegepant (Nurtec ODT) 75 mg orally daily PRN; 30 days 16 tabs 6RF migraine headache magnesium oxide may hold for loose stools 400 mg PO BEDTIME 30 days 30 tabs 6RF Coding Level of Care Code Est Pt Level 4 (85747) Diagnoses Migraine without aura and without status migrainosus, not intractable G43.009 Migraine type: migraine (< 15 days per month) without aura Status migrainosus presence: without status migrainosus Intractability: not intractable TMJ (temporomandibular joint disorder) M26.609 Attention deficit hyperactivity disorder (ADHD), combined type F90.2 Attention deficit-hyperactivity disorder type: combined inattentive- hyperactive
--- OUTSIDE RECORDS SUMMARY | 2024-12-20 10:27 | XMS_ITS | Data Portability ---
Author Organization [facility], [address] Address [address] [place] [address] Care Team Providers Care Sourcing Coordinator Name Role Phone [facility] Primary Care Provider Assessment No assessment recorded. Plan of Treatment Reminders Order Date Submit Date Provider Last Modified By Organization Details Last Modified Time Details Appointments None recorded. Lab SARS CoV 2 (COVID-19) Ag, QL, IA, upper respiratory specimen 2022 023 [email or web address] [address], [address] [place], [address], 09:39:17 Referral None recorded. Procedures None recorded. Surgeries None recorded. Imaging None recorded. Medication Orders ketorolac 60 mg/2 mL intramuscul ar solution 2022 023 Not available 08:48:02 amoxicillin 875 mg-potassiu m clavulanate 125 mg tablet 2022 023 [email or web address] [id number], [address] [place], [address], 15:12:51 Patient TargetsNo targets recorded. Patient Instructions Encounter Date Encounter Id Patient Instructions Last Modified By Organization Details Last Modified Time 12/26/2022 [id number] headache: care instructions [id number] Not available 12/26/2022 09:37:29 Continue your regular treatment plan at home. [email or web address] Not available 12/26/2022 09:36:07 11/05/2023 [id number] ear infection (otitis media): care instructions Not [...] ve Not Available [address] [place], [address], 11/05/2023 08:50:13 Result Notes None recorded. Problems Name Problem SNOMED Code Status Onset Date Resolution Date Notes Provider Name and Address Organization Details Recorded Time Tachycardia 8019086 Active KATERINE DEPINTO null, PA - [facility] 08:49:14 Pernicious anemia 66145925 Active KATERINE DEPINTO null, PA - [facility] 08:49:19 Migraine 22066854 Active NEL GOMEZ-JANICEE RA null, PA - [...] Name and Address Organization Details Recorded Time 026611 Substance with sulfonami de structure and antibacte rial mechanism of action (substanc e) medicatio n other Not available Not available 12/26/2022 [id number] [id number] SNOMED NEL ABURTO RA null, PA - [facility] 3 08:55:56 [id number] topiramat e medicatio n rash Not available Not available 12/26/2022 [id number] RxNorm GONZALO Joiner RA - [facility] [...] Not Available Vitals Date Recorded Body height Provider Name an d Address Organization Details Last Updated DateTime 11/05/2023 175.26 cm KATERINE DEPINTO PA - [facility] 1 01/06/2023 08:46:03 Date Recorded Body mass index (BMI) Body weight Provider Name and Address Organization Details Last Updated DateTime 11/05/2023 26.6 kg/m2 04238.63 g KATERINE DEPINTO PA - [facility] 11/05/2023 08:46:10 Date Recorded Respiratory rate Provider Name a nd Address Organization Details Last Updated DateTime 11/05/2023 18 /min KATERINE DEPINTO PA - [facility] 1 01/06/2023 08:46:19 Date Recorded Body temperature Provider Name a nd Address Organization Details Last Updated DateTime 11/05/2023 97.8 [degF] KATERINE DEPINTO PA - [facility] 11/05/2023 08:51:10 Date Recorded Oxygen saturation Oxygen saturation in Arterial blood by Pulse oximetry Provider Name and Address Organization Details Last Updated DateTime 11/05/2023 97 % 97 % KATERINE DEPINTO PA - [facility] 11/05/2023 08:51:12 Date Recorded Heart rate Provider Name an d Address Organization Details Last Updated DateTime 11/05/2023 92 /min KATERINE DEPINTO PA - [facility] 1 01/06/2023 08:51:13 Date Recorded Pain severity - 0-10 verbal numeric rating [Score] - Reported Provider Name and Address Organization Details Last Updated DateTime 11/05/2023 0 KATERINE DEPINTO PA - [facility] 1 01/06/2023 08:51:14 Date Recorded Body height Provider Name an d Address Organization Details Last Updated DateTime 12/26/2022 175.26 cm NELDANIEL GOMEZ-ZIEGLER PA - [facility] 12/26/2022 08:54:06 Date Recorded Body mass index (BMI) Body weight Provider Name and Address Organization Details Last Updated DateTime 12/26/2022 25.8 kg/m2 11877.66 g NEL GOMEZ-ZIEGLER PA - [facility] 12/26/2022 08:54:10 Date Recorded Pain severity - 0-10 verbal numeric rating [Score] - Reported Provider Name and Address Organization Details Last Updated DateTime 12/26/2022 5 NEL MENDOZA PA - [facility] 12/26/2022 08:54:27 Date Recorded Respiratory rate Provider Name a nd Address Organization Details Last Updated DateTime 12/26/2022 17 /min NEL MENDOZA PA - [facility] 12/26/2022 08:54:53 Date Recorded Oxygen saturation Oxygen saturation in Arterial blood by Pulse oximetry Provider Name and Address Organization Details Last Updated DateTime 12/26/2022 100 % 100 % NELDANIEL GOMEZRAMINA PA - [facility] 12/26/2022 08:59:54 Date Recorded Heart rate Provider Name an d Address Organization Details Last Updated DateTime 12/26/2022 95 /min NELDANIEL GOMEZRAMINA PA - [facility] 12/26/2022 08:59:59 Date Recorded Body temperature Provider Name a nd Address Organization Details Last Updated DateTime 12/26/2022 97.2 [degF] NELDANIEL NEWSOMEZIEGLER PA - [facility] 12/26/2022 09:00:13 Date Recorded Systolic blood pressure Diastolic blood pressure Provider Name and Address Organization Details Last Updated DateTime 11/05/2023 111 mm[Hg] 76 mm[Hg] KATERINE KIMBALL PA - [facility] 11/05/2023 08:51:18 Date Recorded Systolic blood pressure Diastolic blood pressure Provider Name and Address Organization Details Last Updated DateTime 12/26/2022 107 mm[Hg] 70 mm[Hg] NEL GOMEZRAMINA PA - [facility] 12/26/2022 08:59:51 Social History Question Answer Notes LastModified by Organizat ion Details LastModified Time Tobacco Smoking Status Never Smoker NEL MENDOZA hitesh PA - [facility] 12/26/2022 08:57:41 What [...] Details Recorded Time IPV 0 completed NEL proctor, PA - [facility] 12/26/2022 08:55:00 Influenza, MDCK, quadrivalent, preservative 9 completed NEL MENDOZA null, PA - [facility] 12/26/2022 08:55:00 MMR 6 completed NEL proctor, PA - [facility] 12/26/2022 08:55:00 MMR 0 completed NEL proctor, PA - [facility] 12/26/2022 08:55:00 COVID-19, [...] PA - [facility] 12/26/2022 08:55:00 Novel [id number], preservative-free 0 completed NEL GOMEZ-ZIEGLER null, PA [...] Diagnosis/Indication Diagnosis SNOMED-CT Code Diagnosis ICD10 Code Diagnosis Note [id number] [address] [facility], [place] [address] 02/27/2022 08:55:38 02/27/2022 10:04:35 [id number] [address] [facility] [place] [address] 06/24/2020 13:12:00 06/24/2020 14:11:50 [id number] [address] [facility] [place] [address] 01/10/2022 09:19:54 01/10/2022 10:12:28 [id number] [address] [facility] [place] [address] 01/28/2021 08:33:58 01/28/2021 09:20:34 [id number] [address] [facility], [place] [address] 02/07/2021 08:08:43 02/07/2021 09:44:20 [id number] [address] [facility] [place] [address] 05/16/2020 19:04:51 05/16/2020 19:51:35 [id number] [address] [facility] [place] [address] 08/16/2018 12:19:29 08/16/2018 14:34:38 [id number] BA MIMS MD [address] [facility] [place] [address] 12/26/2022 08:36:25 12/26/2022 09:38:19 Chronic migraine without aura [id number] 62806 G43.709 [id number] Mili Rosales NP [address] [facility] [address] [place] [address] 11/05/2023 08:17:12 11/05/2023 09:40:45 Upper respiratory infection 88250079 J06.9 1. Take Ibuprofen or Tylenol if you do not have any allergies to these medication s. If you take a blood thinner you should not take NSAIDS like Ibuprofen. These medication will help with the inflammati on in your respirator y tract which should help the cough.2. Do not take any decongesta nts at this time because this will dry out that tract too much. If you have a lot of nasal congestion you can try nasal decongesta nts, but I would not take them more than 5 days.3. Use a humidifier or add a cup of water by your bed. Sometimes if our sleeping environmen t is too dry this can lead to cough4. Salt Water Gargles5. Saline nasal spray is helpful.6. Would recommend taking a antihistam ine to help with the congestion .7. Clean Surfaces regularly and try to stay isolated from family members. I would be seen again if you develop any of the following. 1. Cough develops last longer than 3 weeks.2. Develop shortness of breath or wheezing.3 . Severe Headache with vision changes4. Stiff Neck5. Fever does not reduce a few points with Ibuprofen or Tylenol. I would go immediatel y to the Emergency Room if you develop:1. Chest Pain2. Severe Shortness of breath3. Coughing up Blood. I would be seen again if you develop any of the following symptoms.1 . Fever > 101.02. Stiff neck - where you can't turn your neck3. Trouble swallowing your saliva - drooling4. Swelling of a lymph node in your throat that is painful to touch5. Difficulty breathing6 . Severe Headache Thank you for using [facility] today, please feel free to contact our office if you have any questions or concerns. Acute left otitis media [id number] H66.92 An ear infection may start with a cold and affect the middle ear (otitis media). It can hurt a lot. Most ear infections clear up on their own in a couple of days and do not need antibiotic s. Also, antibiotic s do not work against viruses, which may be the cause of your infection. Regular doses of pain relievers are the best way to reduce your fever and help you feel better.Fol low-up care is a kahn part of your treatment and safety. Be sure to make and go to all appointmen ts, and call your doctor if you are having problems. It's also a good idea to know your test results and keep a list of the medicines you take.How can you care for yourself at home?Take pain medicines exactly as directed.I f the doctor gave you a prescripti on medicine for pain, take it as prescribed .If you are not taking a prescripti on pain medicine, take an over-the-c ounter medicine, such as acetaminop hen (Tylenol), ibuprofen (Advil, Motrin), or naproxen (Aleve). Read and follow all instructio ns on the label.Do not take two or more pain medicines at the same time unless the doctor told you to. Many pain medicines have acetaminop hen, which is Tylenol. Too much acetaminop hen (Tylenol) can be harmful.Pl an to take a full dose of pain reliever before bedtime. Getting enough sleep will help you get better.Try a warm, moist washcloth on the ear. It may help relieve pain.If your doctor prescribed antibiotic s, take them as directed. Do not stop taking them just because you feel better. You need to take the full course of antibiotic s. Health Concerns Section Related Observation LastModified by Organization Detai ls LastModified Time None Recorded Concern Status LastModified by Organization Details LastModified Time None Recorded Advance Directives Directive None Recorded Payers Encounter Date Sequence Insurance Name Policy Number Policy [place] Covered Member ID [place] Member ID Guarantor Name 02/07/2021 1 [place] [id number] Tammy Cedrick Driss [id number] Tammy Naqvi 01/10/2022 1 [place] [id number] Tammy Naqvi [id number] Tammy Driss 02/27/2022 1 [place] [id number] Tammy Atkinscil [id number] Tammy Atkinscil 12/26/2022 1 [place] [id number] Tammy Atkinscil [id number] 66 Tammy Atkinscil 11/05/2023 1 [place] [id number] Tammy Atkinscil [id number] 66 Tammy Naqvi Notes Date Note Type Note Provider Name and Address Organization Details Recorded Time 3 text/html Ear Pain Brief HPIReported bypatient.Location:[facility] Onset/Timing:new onset; started 2days ago Duration:pain lasts ; constant pain Quality:no itching; no discharge from the ears; no burning Severity:no fever Context:no recent URI She states she has had a migraine headache for 1-2 weeks with little improvement on her current treatment plan. she has also had increased tenderness behind each ear. Afebrile. No vision changes. no nausea. BA MIMS MD [address] [place], [address], PA - [facility] 12/26/2022 09:42:05 3 [...] throat with swallowing Mili Rosales NP [address] [place], [address], [place] PA - [facility] 11/22/2023 15:16:33 OBGyn Episode No OBEpisode recorded.
== END 2024-12-20 10:38 | disposition home or self-care (01) ==
PROVIDERS: PCP Internal Medicine; Visit Provider Nurse Practitioner Family
DX: G43.009 Migraine without aura, not intractable, without status migrainosus (principal); M26.609 Unspecified temporomandibular joint disorder, unspecified side; F90.2 Attention-deficit hyperactivity disorder, combined type
CPT/HCPCS: 99214

== ENCOUNTER → 2024-12-20 09:31 | Outpatient (BNVA) | payer BC, SELFPAY | PROVIDERS: PCP Internal Medicine; Visit Provider Nurse Practitioner Family ==

== ENCOUNTER 2025-03-03 09:52 | Day surgery (SDC) | payer BC, SELFPAY ==
[2025-03-01 13:25] VITALS: BMI 23.1
--- NOTE | 2025-03-02 10:24 | HO.ANESPROP2 ---
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 Stable at 01/2025 office visit with nml EKG, stress test. Case reviewed with Dr Addi ECHEVARRIA Active Problems Active Problems: All Active Problems Diplopia (Acute) Seborrheic dermatitis (Acute) Alternating constipation and diarrhea (Acute) Nausea & vomiting (Acute) Anemia, pernicious (Acute) Personal history of (corrected) congenital malformations of heart and circulatory system (Acute) Nonrheumatic pulmonary valve insufficiency (Acute) Nonrheumatic tricuspid (valve) insufficiency (Acute) Partial anomalous pulmonary venous connection (Acute) Congenital malformation of cardiac septum, unspecified (Acute) Snoring (Acute) Obstruction of nasal valve (Acute) Adult congenital heart disease (Acute) Vitamin D deficiency (Acute) Migraine (Acute) TMJ (temporomandibular joint disorder) (Acute) Bruxism (teeth grinding) (Acute) Hx of ventricular septal defect repair (Acute) Allergic rhinitis (Acute) ADHD (Acute) PCOS (polycystic ovarian syndrome) (Acute) Depression with anxiety (Acute) Past Medical History Medical History Seborrheic dermatitis Alternating constipation and diarrhea Nausea & vomiting Anemia, pernicious Personal history of (corrected) congenital malformations of heart and circulatory system Nonrheumatic pulmonary valve insufficiency Nonrheumatic tricuspid (valve) insufficiency Partial anomalous pulmonary venous connection Congenital malformation of cardiac septum, unspecified Obstruction of nasal valve Disturbance of sleep Vitamin D deficiency Vitamin B12 deficiency TMJ (temporomandibular joint disorder) Bruxism (teeth grinding) Chronic headaches Allergic rhinitis Hx of epistaxis ADHD VSD (ventricular septal defect) ASD (atrial septal defect) PCOS (polycystic ovarian syndrome) Depression with anxiety Family History Family History Father Mental health disorder HTN (hypertension) Mother HTN (hypertension) IBS (irritable bowel syndrome) Sister Anxiety Depression Surgical History Surgical History Hx of atrial septal defect repair Hx of ventricular septal defect repair History of surgical removal of pilonidal cyst Social History Social History Housing: House Alcohol intake: current Alcohol intake frequency: a few times a month Patient Tobacco Use Status: Never used Tobacco e-Cigarette/Vaping Use: Never Used Use of substances other than those prescribed or required for medical reasons: No Are you DNR?: No Advance Directives: No Advance Directives Information Provided: Yes FDLMP: 2021 Current occupational status: employed Cognitive needs: No Hearing needs: No Vision needs: Yes Meds Allergies Allergy/AdvReac Type Severity Reaction Status Date / Time environmental allergies Allergy Unknown Unknown Verified 12/20/24 09:47 house dust Allergy Unknown Unknown Verified 12/20/24 09:47 pollen extracts Allergy Unknown Unknown Verified 12/20/24 09:47 Sulfa (Sulfonamide Allergy Unknown Verified 12/20/24 09:47 Antibiotics) topiramate Allergy Unknown Verified 12/20/24 09:47 atomoxetine AdvReac tinnitus Verified 12/20/24 09:47 Home Medications ?Medication ?Instructions ?Recorded ?Confirmed ?Last Taken ?Type drospiren-e.estrad-l.mefol 3 1 tab PO DAILY 06/07/21 03/01/25 Unknown History mg-0.02 mg-0.451 mg(24)/0.451 mg(4)tablet (Tone (28)) loratadine 10 mg tablet (Allergy 10 mg PO DAILY 09/03/23 03/01/25 Unknown History Relief (loratadine)) citalopram 10 mg tablet 10 mg PO DAILY 08/02/24 03/01/25 Unknown History clotrimazole-betamethasone 1 appl topical PRN Dry Skin 08/10/24 12/20/24 Unknown History %-0.05 % topical cream citalopram 20 mg tablet 20 mg PO DAILY 11/04/24 03/01/25 Unknown History hydroxyzine HCl 10 mg tablet 10 mg PO BEDTIME PRN Insomnia 03/03/25 03/03/25 Unknown History Exam Height,Weight and Vital Signs: Height 5 ft 10 in Weight 73.028 kg Pertinent Lab Results Pertinent Lab Results: Laboratory Tests 06/30/24 08/10/24 08:44 09:54 WBC 3.9 L Hgb 12.8 Hct 36.6 L Plt Count 269 Sodium 138 Potassium 4.3 Chloride 106 Carbon Dioxide 26 BUN 6 L Creatinine 0.89 Narrative Narrative: ECHO 2022 Conclusions: - The left ventricular systolic function is normal. The calculated ejection fraction is 55% by biplane method. - Basal infero-septum appears hypokinetic. Could be post operative. - No obvious valvular pathology seen on this study. Documented by User: Laura Murdock MD 03/03/25 13:37 [facility] Active Problems Active Problems: All Active Problems Diplopia (Acute) Seborrheic dermatitis (Acute) Alternating constipation and diarrhea (Acute) Nausea & vomiting (Acute) Anemia, pernicious (Acute) Personal history of (corrected) congenital malformations of heart and circulatory system (Acute) Nonrheumatic pulmonary valve insufficiency (Acute) Nonrheumatic tricuspid (valve) insufficiency (Acute) Partial anomalous pulmonary venous connection (Acute) Congenital malformation of cardiac septum, unspecified (Acute) Snoring (Acute) Obstruction of nasal valve (Acute) Adult congenital heart disease (Acute) Vitamin D deficiency (Acute) Migraine (Acute) TMJ (temporomandibular joint disorder) (Acute) Bruxism (teeth grinding) (Acute) Hx of ventricular septal defect repair (Acute) Allergic rhinitis (Acute) ADHD (Acute) PCOS (polycystic ovarian syndrome) (Acute) Depression with anxiety (Acute) Vomiting yesterday with first 1/2 of prep. No nausea or vomiting today Past Medical History Medical History Seborrheic dermatitis Alternating constipation and diarrhea Nausea & vomiting Anemia, pernicious Personal history of (corrected) congenital malformations of heart and circulatory system Nonrheumatic pulmonary valve insufficiency Nonrheumatic tricuspid (valve) insufficiency Partial anomalous pulmonary venous connection Congenital malformation of cardiac septum, unspecified Obstruction of nasal valve Disturbance of sleep Vitamin D deficiency Vitamin B12 deficiency TMJ (temporomandibular joint disorder) Bruxism (teeth grinding) Chronic headaches Allergic rhinitis Hx of epistaxis ADHD VSD (ventricular septal defect) ASD (atrial septal defect) PCOS (polycystic ovarian syndrome) Depression with anxiety Family History Family History Father Mental health disorder HTN (hypertension) Mother HTN (hypertension) IBS (irritable bowel syndrome) Sister Anxiety Depression Family history of problems with anesthesia: No Surgical History Surgical History Hx of atrial septal defect repair Hx of ventricular septal defect repair History of surgical removal of pilonidal cyst History of Problems with Anesthesia: No Social History Social History Housing: House Alcohol intake: current Alcohol intake frequency: a few times a month Patient Tobacco Use Status: Never used Tobacco e-Cigarette/Vaping Use: Never Used Use of substances other than those prescribed or required for medical reasons: No Are you DNR?: No Advance Directives: No Advance Directives Information Provided: Yes FDP: 2021 Current occupational status: employed Cognitive needs: No Hearing needs: No Vision needs: Yes Meds Allergies Allergy/AdvReac Type Severity Reaction Status Date / Time environmental allergies Allergy Unknown Unknown Verified 12/20/24 09:47 house dust Allergy Unknown Unknown Verified 12/20/24 09:47 pollen extracts Allergy Unknown Unknown Verified 12/20/24 09:47 Sulfa (Sulfonamide Allergy Unknown Verified 12/20/24 09:47 Antibiotics) topiramate Allergy Unknown Verified 12/20/24 09:47 atomoxetine AdvReac tinnitus Verified 12/20/24 09:47 Home Medications ?Medication ?Instructions ?Recorded ?Confirmed ?Last Taken ?Type drospiren-e.estrad-l.mefol 3 1 tab PO DAILY 06/07/21 03/01/25 Unknown History mg-0.02 mg-0.451 mg(24)/0.451 mg(4)tablet (Tone (28)) loratadine 10 mg tablet (Allergy 10 mg PO DAILY 09/03/23 03/01/25 Unknown History Relief (loratadine)) citalopram 10 mg tablet 10 mg PO DAILY 08/02/24 03/01/25 Unknown History clotrimazole-betamethasone 1 appl topical PRN Dry Skin 08/10/24 12/20/24 Unknown History %-0.05 % topical cream citalopram 20 mg tablet 20 mg PO DAILY 11/04/24 03/01/25 Unknown History hydroxyzine HCl 10 mg tablet 10 mg PO BEDTIME PRN Insomnia 03/03/25 03/03/25 Unknown History Exam Height,Weight and Vital Signs: Height 5 ft 10 in Weight 73.028 kg Vital Signs Temp Pulse Resp BP Pulse Ox O2 Del Method 03/03/25 11:10 97.3 F 64 20 117/76 100 Room Air Pertinent Lab Results Pertinent Lab Results: Lab Results 03/03/25 Range/Units 11:57 Beta HCG, Quant < 2 mIU/mL Laboratory Tests 06/30/24 08/10/24 08:44 09:54 WBC 3.9 L Hgb 12.8 Hct 36.6 L Plt Count 269 Sodium 138 Potassium 4.3 Chloride 106 Carbon Dioxide 26 BUN 6 L Creatinine 0.89 Airway Mallampati Class: II TM Dist: >3cm Neck ROM: Full Loose/Missing/Broken Teeth: Yes (Missing molars. Denies broken or loose teeth) Heart: RRR Lungs: CTAB Assessment and Plan Assessment Anesthesia Assessment: Anesthesia Plan Discussed and Chart Reviewed Final Anesthetic Review Family History of Problems with Anesthesia: No History of Problems with Anesthesia: No NPO: Yes ASA Class: III Final Preanesthetic Review: No Changes in Pt Med Stat, Meds/Allgs Chart Reviewed, Consent Obtained/Reviewed and Anes Risks/Benef Reviewed Patient Risk: Intermediate Procedure Risk: Low Assessment/Block/Sedation in SS: Assess/Block/Sedation-SS Anesthetic Plan Anesthetic Plan: TIVA Disposition: Standard PACU
[2025-03-03 11:06] VITALS: BMI 24.1
[2025-03-03 11:10] VITALS: BP 117/76; PULSE 64; RESP 20; TEMP 36.3; O2SAT 100
[2025-03-03] MEDS: Lactated Ringers 1,000 ML 100 ML IVCONT (11:55)
--- NOTE | 2025-03-03 12:02 | P.HPSUR_ITS ---
Pre-Procedural Eval Section A - 24 Hr Update-Section A only Date of Service: 03/03/25 Section B - Complete if H&P > 30 days Chief Complaint: Anemia. post prandial diarrhea Relevant Family History (Specify if Yes): No Relevant Social History: None Present Medications: see Short Stay Collaborative assessment Medical History: Significant History (Anemia, pernicious Personal history of (corrected) congenital malformations of heart and circulatory system Nonrheumatic pulmonary valve insufficiency Nonrheumatic tricuspid (valve) insufficiency Partial anomalous pulmonary venous connection Congenital malfor mation of cardiac septum, unspecified Obs) History of Previous Operations: Relevant previous surgery/procedure and date(s) (Hx of atrial septal defect repair Hx of ventricular septal defect repair History of surgical removal of pilonidal cyst) Allergies: Allergies Allergy/AdvReac Type Severity Reaction Status Date / Time environmental allergies Allergy Unknown Unknown Verified 12/20/24 09:47 house dust Allergy Unknown Unknown Verified 12/20/24 09:47 pollen extracts Allergy Unknown Unknown Verified 12/20/24 09:47 Sulfa (Sulfonamide Allergy Unknown Verified 12/20/24 09:47 Antibiotics) topiramate Allergy Unknown Verified 12/20/24 09:47 atomoxetine AdvReac tinnitus Verified 12/20/24 09:47 Review of Systems Sugical H&P ROS: Negative: Constitution, Respiratory and Gastrointestinal and Yes, Specify: Cardiovascular (hx of cardiac surgery) Exam Surgical H&P Exam: Normal: Heart, Normal: Lungs, Normal: Extremities and Normal: Abdomen Plan Diagnosis/Plan: Unchanged I have reviewed the history and physical and performed a pertinent physical examination on my patient. No changes have occurred unless specified. Time Spent With Patient Time: Total time managing care of this patient today ____ minutes.
[2025-03-03 12:39] LABS: HCG Quantitative < 2 mIU/mL
--- NOTE | 2025-03-03 13:09 | P.OPN-COLO_ITS ---
Colonoscopy Operative Note Operative Note Date of Service: 03/03/25 Narrative: FLEXIBLE TRANSORAL UPPER GASTROINTESTINAL ENDOSCOPY WITH BIOPSIES AND COLONOSCOPY TILL CECUM WITH BIOPSIES Pre-op diagnosis: Anemia, post prandial diarrhea Post-op diagnosis: Gastritis, Colon Polyps, Diverticulosis ? Endoscopist:? Yue Brannon MD Anesthesia:?MAC UPPER ENDOSCOPY Consent: Indications for the procedure and potential complications of bleeding, perforation, reaction to medications and missed diagnosis were discussed with the patient and informed consent was obtained. Instrument: Olympus GIF H 190 mid size upper endoscope Monitoring: Vital signs and clinical assessment, continuous EKG monitoring, Pulse oximetry, Carbon Dioxide monitoring and blood pressure monitoring were done throughout the procedure. Procedure: The patient was placed in the left lateral decubitis position and pre-procedure medications were administered and a bite block was placed. The endoscope was inserted into the mouth and advanced under direct vision to the third part of duodenum. A careful inspection was made as the upper endoscope was withdrawn including a retroflexed examination of the proximal stomach; Findings and interventions are described below. Findings: Larynx: Normal Esophagus: GE junction at 38 cms. No esophagitis or Patrick's. Stomach: Moderate diffuse gastric erythema - biopsies were obtained from the gastric body and antrum. Decreased fundal folds and grade 2 flap valve on retroflexed examination of the cardia. Duodenum: Normal bulb and descending duodenum Biopsies were obtained from descending duodenum to check for celiac sprue Intervention: Biopsies as noted above COLONOSCOPY PROCEDURE NOTE Instrument: Olympus CF H 190 L variable stiffness adult colonoscope Monitoring: Vital signs and clinical assessment, intermittent blood pressure monitoring, continuous EKG monitoring, Pulse oximetry and Carbon Dioxide monitoring were done throughout the procedure. Please see anesthesia flowsheet. Colon withdrawl time was 20 minutes. Procedure: The patient was placed in the left lateral decubitis position and pre-procedure medications were administered. After a digital rectal examination of the ano-rectum, the video colonoscope was inserted into the rectum and advanced through the colon to the cecum. The colonoscope was slowly withdrawn in a retrograde panoramic fashion and the colon mucosa was carefully examined including a retroflexed view of the rectum. Findings and interventions are described below. Procedure Difficulty: Colon was long and tortuous and there was some loop formation Findings: Terminal Ileum: Distal 4 cms was examined and appeared normal - biopsies were obtained Cecum: Normal Ascending Colon: Normal Transverse Colon: Normal Descending Colon: Normal Sigmoid Colon: A 2.5 cms area of whittish discoloration at 25 cms - biopsies obtained to rule out polyp versus fold. A 7-8 mm hyperplastic appearing polyp - removed with a cold snare. Moderate diverticulosis Rectum: Normal Ano-rectum: Normal Colon preparation: Excellent, after some irrigation. Beaver Bowel Preparation Scale Right colon; 3 Transverse colon: 3 Left colon; 3 (0 = Unprepared colon segment with mucosa not seen due to solid stool that cannot be cleared. 1 = Portion of mucosa of the colon segment seen, but other areas of the colon segment not well seen due to staining, residual stool and/or opaque liquid. 2 = Minor amount of residual staining, small fragments of stool and/or opaque liquid, but mucosa of colon segment seen well. 3 = Entire mucosa of colon segment seen well with no residual staining, small fragments of stool or opaque liquid) Impression and Post Procedure Diagnosis: Endoscopy Findings: ESOPHAGUS: Normal STOMACH: Moderate diffuse gastric erythema - biopsies were obtained from the gastric body and antrum. DUODENUM: Normal - biopsied to check for celiac sprue Colonoscopy Findings: One small polyp was removed A 2.5 cms area of whittish discoloration at 25 cms - biopsies obtained to rule out polyp versus fold. Random biopsies were obtained from TI, right and left colon to check for IBD/microscopic colitis Moderate diverticulosis seen in the sigmoid colon Plan: Pt has a FU appointment on 03/24/25 with Nunu Wills NP Repeat Colonoscopy in 5 years if polyps are adenomatous and 15 year if polyps are hyperplastic and colon biopsies are normal. Above findings were reviewed with the patient and relevant handouts were given and the discharge area. BIOPSIES SHOWED: A. Small bowel, biopsy: Duodenal mucosa with preserved villi and no specific c hange; no evidence of celiac disease. B. Gastric antrum, biopsy: Gastric antral mucosa with minimal chronic inactive gastritis; negative for intestinal metaplasia and dysplasia. C. Gastric body, biopsy: Gastric body mucosa with minimal chronic inactive gastritis; negative for intestinal metaplasia and dysplasia. D. Terminal ileum, biopsy: Ileal mucosa with no specific change; no evidence of inflammatory bowel disease. E. Colon, right, biopsy: Colonic mucosa with lymphoid aggregates and no specific change; no evidence of microscopic colitis. F. Colon, left, biopsy: Colonic mucosa with no specific change; no evidence of microscopic colitis. G. Colon, left at 25 cm, polyp versus fold: Colonic mucosa with prominent lamina propria foamy macrophages and mild hyperplastic changes, suggesting xanthoma (see comment). H. Colon, sigmoid, polyp: Colonic mucosa with mild hyperplastic changes (see comment). Comment: (B and C): Immunostains for H. pylori were negative Letter sent with biopsy results Patient was placed on the colonoscopy recall list for repeat colon in 15 years.
[2025-03-03 14:06] VITALS: BP 116/71; PULSE 67; RESP 26; TEMP 36.3; O2SAT 100
[2025-03-03 14:15] VITALS: BP 135/81; PULSE 66; RESP 15; O2SAT 100
== END 2025-03-03 15:31 | disposition home or self-care (01) ==
PROVIDERS: Anesthesiology; PCP Internal Medicine; Visit Provider Internal Medicine Gastroenterology
PROC: (CPT 45385; principal; 2025-03-03 12:10)
DX: D51.0 Vitamin B12 deficiency anemia due to intrinsic factor deficiency (principal); K63.5 Polyp of colon; K57.30 Diverticulosis of large intestine without perforation or abscess without bleeding; K52.9 Noninfective gastroenteritis and colitis, unspecified; K59.00 Constipation, unspecified; R10.13 Epigastric pain; K21.9 Gastro-esophageal reflux disease without esophagitis; K29.50 Unspecified chronic gastritis without bleeding; I37.1 Nonrheumatic pulmonary valve insufficiency; Q26.3 Partial anomalous pulmonary venous connection; Q21.10 Atrial septal defect, unspecified; Q21.0 Ventricular septal defect; E28.2 Polycystic ovarian syndrome; E55.9 Vitamin D deficiency, unspecified; R51.9 Headache, unspecified; M26.609 Unspecified temporomandibular joint disorder, unspecified side; R06.83 Snoring; J34.89 Other specified disorders of nose and nasal sinuses; J30.9 Allergic rhinitis, unspecified; F90.9 Attention-deficit hyperactivity disorder, unspecified type; F41.8 Other specified anxiety disorders; L21.9 Seborrheic dermatitis, unspecified; Z98.890 Other specified postprocedural states; Z87.74 Personal history of (corrected) congenital malformations of heart and circulatory system; Z79.899 Other long term (current) drug therapy; Z88.2 Allergy status to sulfonamides; Z88.8 Allergy status to other drugs, medicaments and biological substances
CPT/HCPCS: 45385; 45380; 43239; 36415; 84702; 88305; 88342; J2003; J2704

== ENCOUNTER → 2025-03-03 09:52 | Outpatient (BNV) | payer BC, SELFPAY | PROVIDERS: PCP Internal Medicine; Visit Provider Internal Medicine Gastroenterology | DX: D64.9 Anemia, unspecified (principal); K29.70 Gastritis, unspecified, without bleeding; R19.7 Diarrhea, unspecified; K63.5 Polyp of colon; K57.30 Diverticulosis of large intestine without perforation or abscess without bleeding | CPT/HCPCS: 43239; 45380; 45385 ==

== ENCOUNTER 2025-03-24 11:24 | Outpatient (AMB) | payer BC, SELFPAY ==
[2025-03-24 11:31] VITALS: BP 114/72; PULSE 78; O2SAT 98; BMI 24.1
--- NOTE | 2025-03-24 11:31 | A.OFFVIS_ITS ---
Vital Signs 03/24/25 11:31 Height 5 ft 9 in Weight 163 lb BMI 24.1 BP 114/72 Blood Pressure Location Lt brachial Position Sitting Pulse 78 Pulse Source Pulse Oximeter Pulse Oximetry (%) 98 Oxygen Delivery Method Room Air Intake Visit Reasons: S/P colo, egd [place] Intake Note: ESTABLISHED PATIENT for s/p duo w/ RM. Chief Complaint; Pt denies any GI sx or concerns at this time. Home Health Care Physician Required: No Accompanied by: Self / Same As Patient Allergies environmental allergies Allergy (Unknown, Verified 03/24/25 11:34) Unknown house dust Allergy (Unknown, Verified 03/24/25 11:34) Unknown pollen extracts Allergy (Unknown, Verified 03/24/25 11:34) Unknown Sulfa (Sulfonamide Antibiotics) Allergy (Verified 03/24/25 11:34) Unknown topiramate Allergy (Verified 03/24/25 11:34) Unknown atomoxetine Adverse Reaction (Verified 03/24/25 11:34) tinnitus HPI HPI S/P colo, egd [place]: Details: LAST VISIT Anemia, pernicious Nausea & vomiting Postprandial diarrhea Postprandial epigastric pain Plan Will check iron profile. Will rule out celiac. Postprandial epigastric pain occasionally. Patient was encouraged to avoid dietary triggers and eating small portions. Patient was encouraged to start taking probiotics and fiber. Increase fluid intake and activity to promote better bowel motility. Will send patient to Hematology to be evaluated. Currently patient is taking vitamin B12 injections every month. Patient will return in 3 months to discuss going for upper endoscopy. Message sent to surgical schedulers to book upper endoscopy and colonoscopy. Patient does have change in her bowel pattern. She is agreeable to this plan and verbalizes understanding of instructions. She was given the opportunity to ask questions and all questions answered. ? Thank you for allowing me to participate in her care Orders Orders IRON PROFILE Today D64.9 Transglutaminase IgA Today R10.9 Referrals Hematology & Oncology Referral D51.0 UPPER ENDOSCOPY AND COLONOSCOPY Findings: Larynx: Normal Esophagus: GE junction at 38 cms. No esophagitis or Patrick's. Stomach: Moderate diffuse gastric erythema - biopsies were obtained from the gastric body and antrum. Decreased fundal folds and grade 2 flap valve on retroflexed examination of the cardia. Duodenum: Normal bulb and descending duodenum Biopsies were obtained from descending duodenum to check for celiac sprue Intervention: Biopsies as noted above COLONOSCOPY PROCEDURE NOTE Instrument: Olympus 55social H 190 L variable stiffness adult colonoscope Monitoring: Vital signs and clinical assessment, intermittent blood pressure monitoring, continuous EKG monitoring, Pulse oximetry and Carbon Dioxide monitoring were done throughout the procedure. Please see anesthesia flowsheet. Colon withdrawl time was 20 minutes. Procedure: The patient was placed in the left lateral decubitis position and pre-procedure medications were administered. After a digital rectal examination of the ano-rectum, the video colonoscope was inserted into the rectum and advanced through the colon to the cecum. The colonoscope was slowly withdrawn in a retrograde panoramic fashion and the colon mucosa was carefully examined including a retroflexed view of the rectum. Findings and interventions are described below. Procedure Difficulty: Colon was long and tortuous and there was some loop formation Findings: Terminal Ileum: Distal 4 cms was examined and appeared normal - biopsies were obtained Cecum: Normal Ascending Colon: Normal Transverse Colon: Normal Descending Colon: Normal Sigmoid Colon: A 2.5 cms area of whittish discoloration at 25 cms - biopsies obtained to rule out polyp versus fold. A 7-8 mm hyperplastic appearing polyp - removed with a cold snare. Moderate diverticulosis Rectum: Normal Ano-rectum: Normal Colon preparation: Excellent, after some irrigation. Flora Bowel Preparation Scale Right colon; 3 Transverse colon: 3 Left colon; 3 (0 = Unprepared colon segment with mucosa not seen due to solid stool that cannot be cleared. 1 = Portion of mucosa of the colon segment seen, but other areas of the colon segment not well seen due to staining, residual stool and/or opaque liquid. 2 = Minor amount of residual staining, small fragments of stool and/or opaque liquid, but mucosa of colon segment seen well. 3 = Entire mucosa of colon segment seen well with no residual staining, small fragments of stool or opaque liquid) Impression and Post Procedure Diagnosis: Endoscopy Findings: ESOPHAGUS: Normal STOMACH: Moderate diffuse gastric erythema - biopsies were obtained from the gastric body and antrum. DUODENUM: Normal - biopsied to check for celiac sprue Colonoscopy Findings: One small polyp was removed A 2.5 cms area of whittish discoloration at 25 cms - biopsies obtained to rule out polyp versus fold. Random biopsies were obtained from TI, right and left colon to check for IBD/microscopic colitis Moderate diverticulosis seen in the sigmoid colon Plan: Repeat Colonoscopy in 5 years if polyps are adenomatous and 15 year if polyps are hyperplastic and colon biopsies are normal. Above findings were reviewed with the patient and relevant handouts were given and the discharge area. BIOPSIES SHOWED: A. Small bowel, biopsy: Duodenal mucosa with preserved villi and no specific change; no evidence of celiac disease. B. Gastric antrum, biopsy: Gastric antral mucosa with minimal chronic inactive gastritis; negative for intestinal metaplasia and dysplasia. C. Gastric body, biopsy: Gastric body mucosa with minimal chronic inactive gastritis; negative for intestinal metaplasia and dysplasia. D. Terminal ileum, biopsy: Ileal mucosa with no specific change; no evidence of inflammatory bowel disease. E. Colon, right, biopsy: Colonic mucosa with lymphoid aggregates and no specific change; no evidence of microscopic colitis. F. Colon, left, biopsy: Colonic mucosa with no specific change; no evidence of microscopic colitis. G. Colon, left at 25 cm, polyp versus fold: Colonic mucosa with prominent lamina propria foamy macrophages and mild hyperplastic changes, suggesting xanthoma (see comment). H. Colon, sigmoid, polyp: Colonic mucosa with mild hyperplastic changes (see comment). Comment: (B and C): Immunostains for H. pylori were negative Letter sent with biopsy results Patient was placed on the colonoscopy recall list for repeat colon in 15 years. TODAY'S VISIT Patient is here today for follow-up of and to discuss upper endoscopy and colonoscopy results. Patient denies any ill effects from the prep, anesthesia or procedure itself. Patient reports that she has been feeling fairly well. Occasional postprandial abdominal bloating in the left lower quadrant discomfort. Patient denies any nausea or vomiting. Denies any dyspepsia, dysphagia or odynophagia. Denies melena, hematochezia, unintentional weight loss or ribbon like stools. Patient otherwise states that she feels better. S he has to watch what she is eaten. Noticed that certain food makes her bloated. Colonoscopy and upper endoscopy results discussed with patient. Hyperplastic polyp and patient will return for colorectal screening at age 45. Currently her symptoms of acid reflux are control with food. 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, unspecified Obstruction of nasal valve Disturbance of sleep Vitamin D deficiency Vitamin B12 deficiency TMJ (temporomandibular joint disorder) Bruxism (teeth grinding) Chronic headaches Allergic rhinitis Hx of epistaxis ADHD VSD (ventricular septal defect) ASD (atrial septal defect) PCOS (polycystic ovarian syndrome) Depression with anxiety Surgical History Hx of atrial septal defect repair Hx of ventricular septal defect repair History of surgical removal of pilonidal cyst Family History Father Mental health disorder HTN (hypertension) Mother HTN (hypertension) IBS (irritable bowel syndrome) Sister Anxiety Depression Social History Housing: House Alcohol intake: current Alcohol intake frequency: a few times a month Patient Tobacco Use Status: Never used Tobacco e-Cigarette/Vaping Use: Never Used Current occupational status: employed Cognitive needs: No Hearing needs: No Vision needs: Yes Review of Systems Const Denies weight gain and Denies weight loss ENT Reports no additional complaints, Denies dysphagia and Denies odynophagia Card Reports no additional complaints Resp Reports no additional complaints GI Denies abdominal pain, Denies belching, Denies melena, Reports bloating, Denies change in bowel habits, Reports tenesmus (Postprandially), Reports constipation, Denies dysphagia, Denies excessive flatus, Denies dyspepsia, Reports heartburn (Occasional), Denies diarrhea, Reports loose stools, Denies nausea, Denies odynophagia and Denies vomiting Reports no additional complaints Musc Reports no additional complaints Neuro Reports no additional complaints Psych Reports no additional complaints Endo Reports no additional complaints Physical Exam Vital Signs: Last Vital Signs Pulse 78 03/24/25 11:31 BP 114/72 03/24/25 11:31 Pulse Ox 98 03/24/25 11:31 Oxygen Delivery Method Room Air 03/24/25 11:31 BMI result Body Mass Index 24.1 Const General: healthy appearing, no acute distress and well developed Nutritional Appearance: well nourished Orientation/consciousness: patient oriented x3 Resp Effort & Inspection: normal respiratory effort, able to speak in complete s entences, no tracheal deviation and symmetric chest movement Auscultation: clear to auscultation bilaterally Cardio Rate: regular rate GI Inspection: Yes normal to inspection and No distended Palpation (GI): Soft to palpation, not firm, nontender and No hepatosplenomegaly present Auscultation: normal bowel sounds General: Yes no CVA tenderness Back/Spine/Pelvis Back: no CVA tenderness Skin General skin exam: elasticity normal, turgor normal and dry skin Neuro General: patient oriented x3 Psych Appearance: grossly normal Mental Status: mental status grossly normal Assessment & Plan Assessment & Plan (1) Anemia, pernicious: Code(s): D51.0 - Vitamin B12 deficiency anemia due to intrinsic factor deficiency Category: Medical (2) Nausea & vomiting: Code(s): R11.2 - Nausea with vomiting, unspecified Category: Medical Qualifiers: Vomiting type: unspecified Qualified Code(s): R11.2 - Nausea with vomiting, unspecified (3) Postprandial diarrhea: Code(s): K52.9 - Noninfective gastroenteritis and colitis, unspecified (4) Postprandial epigastric pain: Code(s): R10.13 - Epigastric pain Plan Continue avoiding dietary triggers and late night snacking. Staying upright for minimum 3 hours after meals discussed with patient. Low FODMAP diet recommended as we discussed last visit. Avoid triggers. Colonoscopy at age 45, sooner if clinically necessary. Patient will follow-up in the office in 6 months, sooner on as needed basis. She is agreeable to this plan and verbalizes understanding of instructions. She was given the opportunity to ask questions and all questions answered. Thank you for allowing me to participate in her care Coding Level of Care Code Est Pt Level 3 (54621) Diagnoses Anemia, pernicious D51.0 Nausea and vomiting, unspecified vomiting type R11.2 Vomiting type: unspecified Postprandial diarrhea K52.9 Postprandial epigastric pain R10.13 Time Spent (min) 30 Comment 20 minutes spent with patient and additional 10 minutes spent reviewing her records
--- OUTSIDE RECORDS SUMMARY | 2025-03-24 12:21 | XMS_ITS | Data Portability ---
Author Organization [facility], [address] Address [address] [place] [address] Care Team Providers Care Tankage Grinder Name Role Phone [facility] Primary Care Provider Assessment No assessment recorded. Plan of Treatment Reminders Order Date Submit Date Provider Last Modified By Organization Details Last Modified Time Details Appointments None recorded. Lab SARS CoV 2 (COVID-19) Ag, QL, [place], upper respiratory specimen 2022 023 [email or web address] [address], [address] [place], [address], 09:39:17 Referral None recorded. Procedures None recorded. Surgeries None recorded. Imaging None recorded. Medication Orders amoxicillin 875 mg-potassiu m clavulanate 125 mg tablet 2022 023 [email or web address] [id number], [address] [place], [address], 3 15:12:51 ketorolac 60 mg/2 mL intramuscul ar solution 2022 023 Not available 08:48:02 Patient TargetsNo targets recorded. Patient Instructions Encounter Date Encounter Id Patient Instructions Last Modified By Organization Details Last Modified Time 12/26/2022 [id number] headache: care instructions [email or web address] Not available 12/26/2022 09:37:29 Continue your regular treatment plan at home. [email or web address] Not available 12/26/2022 09:36:07 11/05/2023 [id number] ear infection (otitis media): care instructions Not [...] ve Not Available [address] [place], [address], 11/05/2023 08:50:13 Result Notes None recorded. Problems Name Problem SNOMED Code Status Onset Date Resolution Date Notes Provider Name and Address Organization Details Recorded Time Tachycardia 8578896 Active KATERINE DEPINTO null, [place] - [facility] 08:49:14 Pernicious anemia 79778447 Active KATERINE DEPINTO null, [place] - [facility] 08:49:19 Migraine 77506890 Active NEL GOMEZ-JANICEE RA null, PA - [...] Name and Address Organization Details Recorded Time 652851 Substance with sulfonami de structure and antibacte rial mechanism of action (substanc e) medicatio n other Not available Not available 12/26/2022 73186 8003 SNOMED NEL ABURTO RA null, PA - [facility] 3 08:55:56 060107 topiramat e medicatio n rash Not available Not available 12/26/2022 10048 RxNorm GONZALO Joiner RA - [facility] [...] Arterial blood by Pulse oximetry Heart rate Pain severity - 0-10 verbal numeric rating [Score] - Reported Systolic blood pressure Diastolic blood pressure Provider Name and Address Organization Details Last Updated DateTime 3 175.26 cm 26.6 kg/m2 01377.6 3 g 18 /min 97.8 [degF] 97 % 97 % 92 /min 0 111 mm[Hg] 76 mm[Hg] KATERINE KIMBALL PA - [facility] 3 08:51:18 Date Recorded Body height Body mass index (BMI) Body weight Pain severity - 0-10 verbal numeric rating [Score] - Reported Respiratory rate Oxygen saturation Oxygen saturation in Arterial blood by Pulse oximetry Heart rate Body temperature Systolic blood pressure Diastolic blood pressure Provider Name and Address Organization Details Last Updated DateTime 3 175.26 cm 25.8 kg/m2 75043.6 6 g 5 17 /min 100 % 100 % 95 [...] PA - [facility] 12/26/2022 08:55:00 Novel [id number], preservative-free 0 completed NEL GOMEZ-ZIEGLER null, PA [...] SNOMED-CT Code Diagnosis ICD10 Code Diagnosis Note [id number] [address] [facility] [place] [address] 02/27/2022 08:55:38 02/27/2022 10:04:35 [id number] [address] [facility] [place] [address] 06/24/2020 13:12:00 06/24/2020 14:11:50 [id number] [address] [facility] [place] [address] 01/10/2022 09:19:54 01/10/2022 10:12:28 [id number] [address] [facility] [place] [address] 01/28/2021 08:33:58 01/28/2021 09:20:34 [id number] [address] [facility] [place] [address] 02/07/2021 08:08:43 02/07/2021 09:44:20 [id number] [address] [facility] [place] [address] 05/16/2020 19:04:51 05/16/2020 19:51:35 [id number] [address] [facility] [place] [address] 08/16/2018 12:19:29 08/16/2018 14:34:38 [id number] BA MIMS MD [address] [facility] [place] [address] 12/26/2022 08:36:25 12/26/2022 09:38:19 Chronic migraine without aura 6572173898 57843 G43.709 [id number] Mili Rosales NP [address] [facility] [place] [address] 11/05/2023 08:17:12 11/05/2023 09:40:45 Upper respiratory infection 30670557 J06.9 1. Take Ibuprofen or Tylenol if [...] . Severe Headache Thank you for using [facility] today, please feel free to contact our office if you have any questions or concerns. Acute left otitis media 605073856 H66.92 An ear infection may start with [...] Guarantor Name 02/07/2021 1 [place] [id number] Tammy S Driss [id number] Tammy Driss 01/10/2022 1 [place] [id number] Tammy S Driss [id number] Tammy Driss 02/27/2022 1 [place] [id number] Tammy S Driss [id number] Tammy Driss 12/26/2022 1 [place] [id number] Tammy S Driss [id number] Tammy Driss 11/05/2023 1 [place] [id number] Tammy Naqvi [id number] Tammy Naqvi Notes Date Note Type Note Provider Name and Address Organization Details Recorded Time 3 text/html Ear Pain Brief HPIReported bypatient.Location:[facility] Onset/Timing:new onset; started 2days ago [...] BA MIMS MD [address] [place], [address], [place] - [employer] [email or web address] 12/26/2022 09:42:05 3 text/html CoughReported bypatient.source of [...] Mili Rosales NP [address] [place], [address], [place] - [facility] 11/22/2023 15:16:33 OBGyn Episode No OBEpisode recorded.
--- OUTSIDE RECORDS SUMMARY | 2025-03-24 12:21 | XMS_ITS | Clinical Summary ---
Author Organization [facility] Address [address] [place] [address] Phone Care Team Providers Care Retail Clerk Name Role Phone Moreno Barron MD Primary Care Provider Allergies Active Allergy Reactions Criticality Noted Date Comments Aspirin 09/14/2015 nosebleed Fexofenadine 10/29/2020 Other 12/29/2024 Pollen Extracts 12/29/2024 Sulfa (Sulfonamide Antibiotics) 12/02 Topiramate Itching 09/28/2017 Medications propranoloL (INDERAL) 60 mg tablet Take 1 tablet (60 mg total) by mouth 1 (one) time each day. Active ondansetron (ZOFRAN) 4 mg tablet Take 1 tablet (4 mg total) by mouth every 8 (eight) hours if needed. Active magnesium oxide (MAG-OX) 400 mg (241.3 elemental magnesium) tablet TAKE 1 TABLET BY MOUTH AT BEDTIME FOR 30 DAYS MAY HOLD FOR LOOSE STOOLS 12/20/2024 Active levothyroxine (SYNTHROID, LEVOTHROID) 25 mcg tablet Take 1 tablet (25 mcg total) by mouth 1 (one) time each day. 07/15/2023 Active magnesium oxide (MAG-OX) 400 mg magnesium tablet Take 400 mg by mouth daily. Active amitriptyline (ELAVIL) 10 mg tablet at bedtime. Active citalopram (CeleXA) 20 mg tablet TAKE 1.5 TABLET BY MOUTH EVERY DAY DIRECTED Active drospirenone-et hinyl estradiol-levom efolate calcium (BEYAZ,ASHU) 3-0.02-0.451 mg (24) (4) per tablet Take 1 tablet by mouth 1 (one) time each day. 28 tablet 11 02/09/2025 02/10/20 26 Active Active Problems Problem Noted Date Diagnosed Date Epistaxis 12/29/2024 Headache 12/29/2024 Female hirsutism 03/19/2022 Seasonal allergies 05/10/2020 ADHD 11/22/2019 Overview (12/29/2024): Per Dr. Moctezuma Migraine with aura and witho ut status migrainosus, not intractable 05/05/2017 Generalized anxiety disorder 09/14/2015 Overview (12/29/2024): Psychologist:tolerating paxil without issue. PMS (premenstrual syndrome) 09/14/2015 Encounters Date Type Department Care Team Description 12/28/2024 Telephone Obstetrics & Gynecology - [address] [address] Sanaz Posadas CNM from Last 3 Months Immunizations Name Administration Dates Next Due DTP 05/19/1996, 5,1995,03/26 DTaP (Infanrix) 6wks to less than 7yo 08/11/2000 CBbT-HSW-VOL (Pentacel) 2mo to less than 5yo 05/19/1996,1995,1995,03/26 H1N1 Inj Preservative Free 12/05/2009 HPV, Quadrivalent 11/26/2007,05/17/2007,03/16/20 07 Hepatitis B Pediatric (Enger ix B; Recombivax HB) to less than 20 yo 1995,1995,1995 IPV Inactivated polio (Ipol) 6wks and older 08/11/2000 Influenza Quadravalent, MDCK , 0.5ml, with preservative (Flucelvax) 6mo and older 08/06/2018,09/28/2017 Influenza trivalent, 0.5mL, preservative free (Fluarix; FluLaval; Fluzone) ages 6mo and older (Afluria) 3 years and older 09/28/2008 Influenza trivalent, with pr eservative (Fluzone; Afluria) 6mo and older 11/26/2012,08/19/2011,09/11/2010,08/21,11/02/2003 MMR, measles mumps and rubel la Live (Priorix; M-M-R II) 12mo and older 08/11/2000,05/19/1996 Meningococcal MCV4P 01/07/2011 OPV 05/19/1996, 5,1995,03/26 Pfizer SARS-CoV-2 COVID-19, mRNA, LNP-S, preservative free 11/08/2021,04/01/2021,03/11/2021 Tdap Tetanus diptheria acell ular pertussis (Boostrix; Adacel) 7yo and older 07/27/2017,03/16/2007 Varicella live (Varivax) 12m o and older 01/07/2011,05/17/1999 Surgical History Surgery Date Site/Laterality Comments CARDIAC SURGERY 1999 PROCEDURE: HISTORICAL HEART SURGERY(ASD,VSD,VALVES); COMMENT: [facility] OTHER SURGICAL HISTORY 2014 N/A PROCEDURE: [place] EXCISION PILONIDAL CYST/SINUS COMPLICATED Medical History Medical History Date Comments Epistaxis 01/15/2006 DX:Epistaxis Headache(784.0) 01/15/2006 DX:Headache(784. 0) Pilonidal abscess 11/14/2014 DX:Pilonidal a bscess Adhd 11/22/2019 DX:ADHD; COMMENT : Per Dr. Moctezuma Anxiety DX:Anxiety; COMM ENT: taking celexae Heart murmur on physical examination 2016 DX:Heart murmur on physical examination Weight loss 01/24/2013 DX:Weight loss Fatigue 01/24/2013 DX:Fatigue Family History Medical History Relation Name Comments Asthma Father Hypertension Father Breast cancer Father's side Hypertension Mother Other: fibroids Mother Asthma Sister 1 Colon cancer Neg Hx Ovarian cancer Neg Hx Prostate cancer Neg Hx Relation Name Status Comments Father Alive 12/25/64 JAVON Father's side Alive aunts x3 under age 40 Mother Alive 03/24/66 CHITO Sister 1 Sister 2 Alive 06/09/98 MELANIE Social History Tobacco Use Types Packs/Day Years Used Date Smoking Tobacco: Never Smokeless Tobacco: Never Alcohol Use Standard Drinks/Week Comments Yes 0 (1 standard drink = 0.6 oz pur e alcohol) Comments Unknown Sex and Gender Information Value Date Recorded Sex Assigned at Not on file Legal Sex Female 7:18 AM EST Gender Identity Not on file Sexual Orientation Not on file Obstetrics History Last Filed Vital Signs Vital Sign Reading Time Taken Comments Blood Pressure 105/74 03/21/2024 9:10 AM EDT Pulse 78 03/21/2024 9:10 AM EDT Temperature - - Respiratory Rate - - Oxygen Saturation - - Inhaled Oxygen Concentration - - Weight 79.4 kg (175 lb) 03/21/2024 9:10 AM EDT Height 175.3 cm (5' 9 ) 03/21/2024 9:10 AM EDT Body Mass Index 25.84 03/21/2024 9:10 AM EDT Plan of Treatment Upcoming Encounters Date Type Department Care Team (Late st Contact Info) Description 05/01/2025 9:45 AM EDT Office Visit Obstetrics & Gynecology - [facility] [address] [place] [address] Sanaz Posadas CNM [address] [place] [address] Health Maintenance Due Date Last Done Comments Depression Screening 11/08/2022 HIV Screening 11/08/2022 Hepatitis C Screening 11/08/2022 Social Influencers of Health Screening 11/08/2022 COVID-19 Vaccine ( season) 2024 11/08/2021, 04/01/2021, 03/11/2021 Influenza Vaccine (Season Ended) 2025 08/06/2018, 09/28/2017, 11/26/2012, Additional history exists Cholesterol Screening (Lipid Panel) 07/05/2026 07/05/2021 DTaP,Tdap,and Td Vaccines (8 - Td or Tdap) 07/27/2027 07/27/2017, 03/16/2007, 08/11/2000, Additional history exists Cervical Cancer Screening: HPV 03/29/2029 03/29/2024 Hepatitis B Vaccines Completed 1995, 1995, 1995 HIB Vaccines Completed 05/19/1996, 07/1995, 1995, Additional history exists IPV Vaccines Completed 08/11/2000, 05/01, 05/19/1996, Additional history exists MMR Vaccines Completed 08/11/2000, 05/19/1996 HPV Vaccines Completed 11/26/2007, 04/30, 03/16/2007 Meningococcal ACWY Vaccine Aged Out 01/07/2011 N o longer eligible based on patient's age to complete this topic Varicella Vaccines Completed 01/07/2011, 05/17/1999 Hepatitis A Vaccines Aged Out No long er eligible based on patient's age to complete this topic Meningococcal B Vaccine Aged Out No l onger eligible based on patient's age to complete this topic Pneumococcal Vaccine: Pediatrics (0 to 5 Years) and At-Risk Patients (6 to 64 Years) Aged Out No longer eligible based on patient's age to complete this topic RSV Immunization Patients Under 20 months Aged Out No longer eligible based on patient's age to complete this topic Procedures Procedure Name Priority Date/Time Associated Diagnosis Comments HPV Routine 03/29/2024 LIPID PANEL Routine 07/05/2021 from Last 3 Months or Most Recently Relevant to Health Maintenance Results * Cervical Cancer Screening: HPV (03/29/2024) [facility] Cervical Cancer Screening: HPV Negative, Abstracted Historical Provider HEALTH MAINTENANCE Final Result * Lipid panel (07/05/2021) [facility] LDL/HDL Ratio 3 0 - 4 Triglycerides 118 0 - 150 mg/dL Cholesterol 174 0 - 200 mg/dL HDL 67 >=40 mg/dL LDL Cholesterol 84 0 - 100 mg/dL Blood Venous blood specimen / Unknown Historical Provider LAB BLOOD ORDERABLES Amy l Result from Last 3 Months or Most Recently Relevant to Health Maintenance Insurance [facility] ([facility]) Care Teams Retail Clerk Relationship Specialty Start Date End Date Moreno Barron MD [address] [place] [phone] PCP - General Internal Medicine 08/16/15
== END 2025-03-24 12:02 | disposition home or self-care (01) ==
LOC: HO.HGI 11:25
PROVIDERS: PCP Internal Medicine; Visit Provider Nurse Practitioner Family
DX: D51.0 Vitamin B12 deficiency anemia due to intrinsic factor deficiency (principal); R11.2 Nausea with vomiting, unspecified; K52.9 Noninfective gastroenteritis and colitis, unspecified; R10.13 Epigastric pain
CPT/HCPCS: 99213

== ENCOUNTER 2025-03-27 07:54 | Outpatient (REF) | payer BC, SELFPAY ==
[2025-03-27 10:01] LABS: MANUAL DIFF FLAG NO
[2025-03-27 10:08] LABS: Basophils Percent Auto 0.6 % (0-2); Eosinophils Absolute Auto 0.2 X10*3/uL (0.0-0.4); Hematocrit 35.2 % (37.0-47.0); Hemoglobin 12.2 g/dl (12.0-16.0); Lymphocytes Absolute Auto 1.3 X10*3/uL (1.2-4.9); Mean Corpuscular HGB Conc 34.7 g/dl (31.0-35.0); Mean Corpuscular Hemoglobin 27.5 pg (27.0-33.0); Mean Corpuscular Volume 79.3 fL (80.0-98.0); Mean Platelet Volume 10.7 fL (9.4-12.3); Monocytes Absolute Auto 0.4 X10*3/uL (0.1-1.2); Monocytes Percent Auto 11.4 % (2-11); Neutrophils Absolute Auto 1.5 x10*3/uL (2.0-8.3); Platelet Count 316 X10*3/uL (160-400); Red Blood Count 4.44 X10*6/uL (4.20-5.50); Red Cell Distribution Width 12.9 % (11.0-16.0); White Blood Count 3.4 X10*3/uL (4.8-10.8)
[2025-03-27 10:23] LABS: Rheumatoid Factor 13.5 IU/mL (<15.0)
[2025-03-27 10:28] LABS: Cholesterol 199 mg/dL (<200); HDL Cholesterol 67 mg/dL (>40); LDL Cholesterol Calculated 105 mg/dL (<100); Magnesium 2.1 mg/dL (1.6-2.6); Triglycerides 137 mg/dL (<150)
[2025-03-27 10:45] LABS: Vitamin D 25-OH Total 67.9 ng/mL (>30)
[2025-03-27 10:53] LABS: Folate 12.2 ng/mL (> or = 4.0); Vitamin B12 354 pg/mL (200-900)
[2025-03-29 10:14] LABS: Anti Nuclear Antibody Screen POSITIVE (NEGATIVE)
[2025-03-31 16:39] LABS: Vitamin B6 9.1 ng/mL (2.1-21.7)
== END 2025-03-27 07:55 | disposition home or self-care (01) ==
LOC: HO.HMGCLDS 07:54
PROVIDERS: PCP Internal Medicine; Referring Provider Nurse Practitioner Family; Visit Provider Internal Medicine
DX: M25.531 Pain in right wrist (principal); M25.532 Pain in left wrist; R20.0 Anesthesia of skin; R20.2 Paresthesia of skin; M25.50 Pain in unspecified joint; E55.9 Vitamin D deficiency, unspecified; R19.7 Diarrhea, unspecified; Z84.0 Family history of diseases of the skin and subcutaneous tissue
CPT/HCPCS: 36415; 80061; 82306; 82607; 82746; 83735; 84207; 85025; 86038; 86039; 86431; 96127

== ENCOUNTER 2025-03-27 07:54 | Outpatient (AMB) | payer BC, SELFPAY ==
--- OUTSIDE RECORDS SUMMARY | 2025-03-27 07:59 | XMS_ITS | Data Portability ---
Author Organization [facility] [address] Address [address] [place] [address] Care Team Providers Care Wooden Box Maker Name Role Phone [facility] Primary Care Provider [phone] Assessment No assessment recorded. Plan of Treatment Reminders Order Date Submit Date Provider Last Modified By Organization Details Last Modified Time Details Appointments None recorded. Lab SARS CoV 2 (COVID-19) Ag, QL, [place], upper respiratory specimen 2022 023 [email or web address] [facility], [address] [place], [address], 09:39:17 Referral None recorded. Procedures None recorded. Surgeries None recorded. Imaging None recorded. Medication Orders amoxicillin 875 mg-potassiu m clavulanate 125 mg tablet 2022 023 [email or web address] [id number], [address] [place], [address], 3 15:12:51 ketorolac 60 mg/2 mL intramuscul ar solution 2022 023 Not available 08:48:02 Patient TargetsNo targets recorded. Patient Instructions Encounter Date Encounter Id Patient Instructions Last Modified By Organization Details Last Modified Time 12/26/2022 [id number] headache: care instructions [email or web address] Not available 12/26/2022 09:37:29 Continue your regular treatment plan at home. [email or web address] Not available 12/26/2022 09:36:07 11/05/2023 [id number] ear infection (otitis media): care instructions Not [...] ve Not Available [address] [place], [address], 11/05/2023 08:50:13 Result Notes None recorded. Problems Name Problem SNOMED Code Status Onset Date Resolution Date Notes Provider Name and Address Organization Details Recorded Time Tachycardia 9828265 Active KATERINE DEPINTO null, [place] - [facility] 08:49:14 Pernicious anemia 18279856 Active KATERINE DEPINTO null, PA - [facility] 08:49:19 Migraine 95177068 Active NEL GOMEZ-JANICEE RA null, PA - [...] Name and Address Organization Details Recorded Time 875871 Substance with sulfonami de structure and antibacte rial mechanism of action (substanc e) medicatio n other Not available Not available 12/26/2022 [id number] 8003 SNOMED NEL ABURTO RA null, PA - [facility] 3 08:55:56 207056 topiramat e medicatio n rash Not available Not available 12/26/2022 16919 RxNorm GONZALO Joiner RA - [facility] [...] Updated DateTime 3 175.26 cm 26.6 kg/m2 02966.6 3 g 18 /min 97.8 [degF] 97 [...] Updated DateTime 3 175.26 cm 25.8 kg/m2 85728.6 6 g 5 17 /min 100 % [...] Influenza, MDCK, quadrivalent, preservative 9 completed NEL GOMZE-ZIEGLER null, PA - [facility] 12/26/2022 08:55:00 [...] 30 mcg/0.3 mL dose 1 completed NEL GOMEZ-ZIELGER null, PA - [facility] 12/26/2022 08:55:00 [...] PA - [facility] 12/26/2022 08:55:00 Novel [id number], preservative-free 0 completed NEL GOMEZ-ZIEGLER null, PA [...] SNOMED-CT Code Diagnosis ICD10 Code Diagnosis Note [id number] [address] [facility] [place] [address] 02/27/2022 08:55:38 02/27/2022 10:04:35 [id number] [address] [facility] [place] [address] 06/24/2020 13:12:00 06/24/2020 14:11:50 [id number] [address] [facility] [place] [address] 01/10/2022 09:19:54 01/10/2022 10:12:28 [id number] [address] [facility] [place] [address] 01/28/2021 08:33:58 01/28/2021 09:20:34 [id number] [address] [facility] [place] [address] 02/07/2021 08:08:43 02/07/2021 09:44:20 [id number] [address] [facility] [place] [address] 05/16/2020 19:04:51 05/16/2020 19:51:35 [id number] [address] [facility] [place] [address] 08/16/2018 12:19:29 08/16/2018 14:34:38 [id number] BA MIMS MD [address] [facility] [place] [address] 12/26/2022 08:36:25 12/26/2022 09:38:19 Chronic migraine without aura [id number] 62562 G43.709 [id number] Mili Rosales NP [address] [facility] [place] [address] 11/05/2023 08:17:12 11/05/2023 09:40:45 Upper respiratory infection 65505640 J06.9 1. Take Ibuprofen or Tylenol if [...] . Severe Headache Thank you for using [facility] today, please feel free to contact our office if you have any questions or concerns. Acute left otitis media [id number] H66.92 An ear infection may start with [...] Guarantor Name 02/07/2021 1 [place] [id number] Tammy S Driss [id number] Tammy Driss 01/10/2022 1 [place] [id number] Tammy S Driss [id number] Tammy Driss 02/27/2022 1 [place] [id number] Tammy S Driss [id number] Tmamy Driss 12/26/2022 1 [place] [id number] Tammy S Driss [id number] Tammy Driss 11/05/2023 1 [place] [id number] Tammy Naqvi [id number] Tammy Naqvi Notes Date Note Type Note Provider Name and Address Organization Details Recorded Time 3 text/html Ear Pain Brief HPIReported bypatient.Location:[facility] Onset/Timing:new onset; started 2days ago Duration:pain [...] BA MIMS MD [address] [place], [address], PA - [facility] 12/26/2022 09:42:05 3 text/html CoughReported bypatient.source of [...] Mili Rosales NP [address] [place], [address], [place] - [facility] 11/22/2023 15:16:33 OBGyn Episode No OBEpisode recorded.
--- OUTSIDE RECORDS SUMMARY | 2025-03-27 07:59 | XMS_ITS | Clinical Summary ---
Author Organization [facility] Address [address] [place] [address] Phone Care Team Providers Care Supervisor Maintenance And Custodians Name Role Phone Moreno Barron MD Primary Care Provider [phone] Allergies Active Allergy Reactions Criticality Noted Date [...] Description 12/28/2024 Telephone Obstetrics & Gynecology - [address] [address] Sanaz Posadas CNM from Last 3 Months Immunizations Name Administration Dates Next Due DTP 05/19/1996, 5,1995,03/26 DTaP (Infanrix) 6wks to less than 7yo 08/11/2000 REoY-JQV-PTG (Pentacel) 2mo to less than 5yo 05/19/1996,1995,1995,03/26 [...] SURGERY 1999 PROCEDURE: HISTORICAL HEART SURGERY(ASD,VSD,VALVES); COMMENT: [facility] OTHER SURGICAL HISTORY 2014 N/A PROCEDURE: [place] EXCISION PILONIDAL CYST/SINUS COMPLICATED Medical History Medical [...] EDT Office Visit Obstetrics & Gynecology - [facility] [address] [place] [address] Sanaz Posadas CNM [address] [place] [address] Health Maintenance Due Date Last [...] Results * Cervical Cancer Screening: HPV (03/29/2024) [facility] Cervical Cancer Screening: HPV Negative, Abstracted Historical Provider HEALTH MAINTENANCE Final Result * Lipid panel (07/05/2021) [facility] LDL/HDL Ratio 3 0 - 4 Triglycerides 118 0 - 150 mg/dL Cholesterol 174 0 - 200 mg/dL HDL 67 >=40 mg/dL LDL Cholesterol 84 0 - 100 mg/dL Blood Venous blood specimen / Unknown Historical Provider LAB BLOOD ORDERABLES Amy l Result from Last 3 Months or Most Recently Relevant to Health Maintenance Insurance [facility] ([facility]) Care Teams Supervisor Maintenance And Custodians Relationship Specialty Start Date End Date Moreno Barron MD [address] [place] [phone] PCP - General Internal Medicine 08/16/15
--- NOTE | 2025-03-27 08:11 | A.OFFPC_ITS ---
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 Intake Note: Pt is here today to discuss referral for senior cytotechnologist Allergies environmental allergies Allergy (Unknown, Verified 03/27/25 08:19) Unknown house dust Allergy (Unknown, Verified 03/27/25 08:19) Unknown pollen extracts Allergy (Unknown, Verified 03/27/25 08:19) Unknown Sulfa (Sulfonamide Antibiotics) Allergy (Verified 03/27/25 08:19) Unknown topiramate Allergy (Verified 03/27/25 08:19) Unknown atomoxetine Adverse Reaction (Verified 03/27/25 08:19) tinnitus Medication List - Last Reconciled 03/27/25 by Ca Ordoñez MD citalopram 20 mg PO DAILY citalopram 10 mg PO DAILY clotrimazole-betamethasone 1-0.05 % appl topical PRN cyanocobalamin (vitamin B-12) Inject 1 mL(1000 mcg) intramuscularly once a week for 4 weeks, then monthly thereafter 1 week drospirenone-e.estradiol-lm.FA 3-0.02-0.451 mg (24) (4) (Beyaz (28)) 1 tab PO DAILY galcanezumab-gnlm (Emgality Pen) 120 mg subcut ONCE 30 days hydroxyzine HCl 10 mg PO BEDTIME PRN loratadine (Allergy Relief (loratadine)) 10 mg PO DAILY magnesium oxide 400 mg PO BEDTIME 30 days propranolol ER 60 mg PO BEDTIME 30 days rimegepant (Nurtec ODT) 75 mg orally daily PRN; 30 days syringe with needle (BD Luer-Korey Syringe) As directed to inject vitamin B-12 Tobacco use date assessed: 03/27/25 Dental Screening Dental Screen Date: 03/27/25 Did you have a dental visit in the last 12 months?: Yes Did you have a dental problem in the last 6 months where you did not have access to dental care?: No Was dental information given to patient?: Patient has dentist HPI Referral Eval. 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 HPI Details 30-year-old lady here today complaining of polyarthralgia mainly in wrists and fingers of both hands and frequent numbness and tingling which starts in the middle toe of right foot, and spreads up the leg to just behind the knee. This has been present now for the last several months and is getting worse. Already taking magnesium supplement 400 mg daily and is already on vitamin B12 supplementati for treatment of her pernicious anemia, which has not been helping. Patient states that there is a strong family history of lupus in mother side of the family, . requests referral to rheumatology. 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, unspecified Obstruction of nasal valve Disturbance of sleep Vitamin D deficiency Vitamin B12 deficiency TMJ (temporomandibular joint disorder) Bruxism (teeth grinding) Chronic headaches Allergic rhinitis Hx of epistaxis ADHD VSD (ventricular septal defect) ASD (atrial septal defect) PCOS (polycystic ovarian syndrome) Depression with anxiety Surgical History Hx of atrial septal defect repair Hx of ventricular septal defect repair History of surgical removal of pilonidal cyst Family History Father Mental health disorder HTN (hypertension) Mother HTN (hypertension) IBS (irritable bowel syndrome) Sister Anxiety Depression Social History Housing: House Alcohol intake: current Alcohol intake frequency: a few times a month Patient Tobacco Use Status: Never used Tobacco e-Cigarette/Vaping Use: Never Used Current occupational status: employed Cognitive needs: No Hearing needs: No Vision needs: Yes Questionnaire PHQ-9 Over the last 2 weeks, how often have you been bothered by any of the following problems? 1. Little interest or pleasure in doing things: not at all 2. Feeling down, depressed, or hopeless: not at all 3. Trouble falling or staying asleep, or sleeping too much: several days 4. Feeling tired or having little energy: not at all 5. Poor appetite or overeating: more than half the days 6. Feeling bad about yourself - or that you are a failure or have let yourself or your family down: not at all 7. Trouble concentrating on things, such as reading the newspaper or watching television: not at all 8. Moving or speaking so slowly that other people could have noticed. Or the opposite - being so fidgety or restless that you have been moving around a lot more than usual: not at all 9. Thoughts that you would be better off or of hurting yourself in some way: not at all Total score: 3 Depression Screening Interpretation: Negative Depression Screening Done: Yes 46626 - PHQ-9 Billing: Yes Source: Developed by Drs. Aguilar Hicks, Irina Monet, Miller Herrera and colleagues, with an educational samantha from [employer]. Thrive Questionnaire Date Thrive assessed: 03/27/25 I am a: Patient What is your living situation today?: I have a steady place to live Within the past 12 months, did the food you bought not last and you didn't have the money to get more?: Never true Within the past 12 months, did you worry whether your food would run out before you got money to buy more?: Never true Do you have trouble paying for medicines?: No Do you have trouble getting transportation to medical appointments?: No Do you have trouble paying your heating and electricity bill?: No Do you have trouble taking care of your child, family member or friend?: No Do you have trouble with day-to-day activities such as bathing, preparing meals, shopping, managing finances, etc.?: No Are you currently unemployed and looking for a job?: No Are you interested in more education?: No Please select the resources that you would like help with: None Currently or been in a relationship where the following occur: I choose not to answer THRIVE Score: 0 AUDIT C Alcohol Use Questionnaire (AUDIT-C) 1. How often do you have a drink containing alcohol?: Monthly or less 2. How many drinks containing alcohol do you have on a typical day when you are drinking?: 1 or 2 3. How often do you have six or more drinks on one occasion?: Never Total Score: 1 PEDRO-7 AMB Questionnaire PEDRO-7 Date PEDRO - 7 assessed: 03/27/25 Feeling nervous, anxious, or on edge: 1 = Several days Not being able to stop or control worryin = Not at all Worrying too much about different things: 0 = Not at all Trouble relaxin = Not at all Being so restless that it is hard to sit still: 0 = Not at all Becoming easily annoyed or irritable: 0 = Not at all Feeling afraid as if something awful might happen: 0 = Not at all Total PEDRO-7 score (0-4 normal; 5-9 mild; 10-14 moderate; 15-21 severe): 1 Source: Developed by Drs. Aguilar Hicks, Irina Monet, Miller Herrera and colleagues, with an educational samantha from [employer]. Review of Systems Const Denies fever(s), Denies headache(s), Denies poor appetite and Denies weakness Eyes Reports no additional complaints ENT Denies dizziness and Denies headache(s) Card Denies chest pain at rest, Denies chest pain with activity, Denies lighthea dedness, Denies palpitations and Denies dyspnea Resp Denies chest congestion and Denies dyspnea GI Reports no additional complaints Reports no additional complaints Musc Denies abnormal gait Skin/Breast Details: Goes to [facility] Reports as per HPI, Denies breast pain and Denies breast mass Neuro Denies abnormal gait, Denies confusion, Denies dizziness, Denies headache(s), Denies lack of coordination, Denies Sensory deficit (Neuro) and Denies weakness Psych Denies confusion Endo Denies palpitations Isaiah/Lymph Reports no additional complaints Aller/Immun Reports seasonal rhinorrhea Physical exam (Primary Care) Vital Signs: Last Vital Signs Temp 98.4 F 03/27/25 08:12 Pulse 74 03/27/25 08:12 Resp 15 03/27/25 08:12 BP 90/54 L 03/27/25 08:12 Pulse Ox 99 03/27/25 08:12 Oxygen Delivery Method Room Air 03/27/25 08:12 BMI result Body Mass Index 24.5 Tobacco/Smoking Status: Tobacco use Status Tobacco use date assessed 03/27/25 03/27/25 08:17 Patient Tobacco Use Status Never used Tobacco 03/27/25 08:17 e-Cigarette/Vaping Use Never Used 03/27/25 08:17 PHQ-9: PHQ-9 Score PHQ-9: Total score 3 03/27/25 08:37 Depression Screening Interpretation: Negative Thrive Assessment: Date of Thrive Assessment Date Thrive assessed 03/27/25 03/27/25 08:17 Currently or been in a relationship where the following occur: I choose not to answer Const General: No confusion Orientation/consciousness: No confusion HENMT Face and sinus: Yes face symmetric Mouth: Normal oral and palatal mucosa present, oropharynx normal and moist mucous membranes Eyes General: appearance normal, both eyes and all related structures Neck Neck: Yes full ROM, Yes no lymphadenopathy and Yes supple Thyroid: Thyroid normal (Nonpalpable) Resp Auscultation: clear to auscultation bilaterally Cardio Other: S1-S2 present regular rate and rhythm GI Palpation (GI): Soft to palpation, nontender, no guarding and no masses Auscultation: normal bowel sounds General: Yes no CVA tenderness Back/Spine/Pelvis Back: no CVA tenderness and No back tenderness Skin General skin exam: no rashes or lesions noted Neuro General: gait normal, tone normal, moves all extremities, Normal light touch and pain sensation, no focal motor deficits and No confusion Sensory Exam: No Sensory deficit (Neuro) Deep tendon reflexes (DTR's): Right patellar reflex intensity grade: 2+, Left patellar reflex intensity grade: 2+, Right ankle reflex intensity grade: 2+ and Left ankle reflex intensity grade: 2+ Extrem Other: Negative Phalen's or Tinel's sign, no tenderness on palpation over right Achilles tendon General: Yes full ROM, Yes no calf tenderness, Yes normal gait, No clubbing, No edema and No pedal edema Results Reviewed Results Reviewed: Name: Tammy Naqvi Age/Sex: 29/F : 1995 Unit#: [id number] Attend Dr: Yecenia Wills SUPERVISOR [employer]-BC Re11/04/24 Status: DEP [facility] isch: SPEC : [id number] SU: 11/04/24-1245 STATUS: COMP REQ : [id number] RECD: 11/04/24-[address] [facility] [address]: Yecenia Wills SUPERVISOR [employer]ICATION- BC COMP: 11/04/24-1350 ENTERED: 11/04/24-[address] [facility] [address]: Ca Ordoñez MD ORDERED: IRON PROF Test Result Flag Reference Iron 100 30-160 mcg/dL TIBC 313 228-428 mcg/dL Saturation 32 15-50 % UIBC 213 ug/dL Laboratory Tests 06/30/24 08/10/24 08/13/24 08:44 09:54 13:58 Vitamin B12 602 25-OH Vitamin D Total 70.3 TSH 1.13 Coding Level of Care Code Est Pt Level 4 (50900) Diagnoses Bilateral wrist pain M25.531; M25.532 Polyarthralgia M25.50 Numbness and tingling of right lower extremity R20.0; R20.2 Additional Codes PHQ-9 - 95489 - PHQ-9 Billing: Yes ([id number]) Assessment & Plan Assessment & Plan (1) Bilateral wrist pain: Code(s): M25.531 - Pain in right wrist; M25.532 - Pain in left wrist Category: Medical (2) Polyarthralgia: Code(s): M25.50 - Pain in unspecified joint Category: Medical (3) Numbness and tingling of right lower extremity: Code(s): R20.0 - Anesthesia of skin; R20.2 - Paresthesia of skin Category: Medical Plan Ordered nerve conduction study of right lower extremity, rule out tarsal tunnel syndrome, labs ordered to check vitamin B6, ANGELINE, rheumatoid factor, vitamin-D, magnesium, and another CBC and lipid panel. Rheumatology consult ordered Orders: Orders Vitamin B6 Today E55.9 - Vitamin D deficiency, unspecified, M25.50 - Pain in unspecified joint, R20.0 - Anesthesia of skin, R20.2 - Paresthesia of skin, Z84.0 - Family history of diseases of the skin and subcutaneous tissue ANGELINE Reflex Titer and Pattern Today E55.9 - Vitamin D deficiency, unspecified, M25.50 - Pain in unspecified joint, R20.0 - Anesthesia of skin, R20.2 - Paresthesia of skin, Z84.0 - Family history of diseases of the skin and subcutaneous tissue NE nerve conduction velocity Today R20.0 - Anesthesia of skin, R20.2 - Paresthesia of skin Complete Blood Count Auto Diff Today E55.9 - Vitamin D deficiency, unspecified, M25.50 - Pain in unspecified joint, R20.0 - Anesthesia of skin, R20.2 - Paresthesia of skin, Z84.0 - Family history of diseases of the skin and subcutaneous tissue Vitamin D 25-OH Total Today E55.9 - Vitamin D deficiency, unspecified, M25.50 - Pain in unspecified joint, R20.0 - Anesthesia of skin, R20.2 - Paresthesia of skin, Z84.0 - Family history of diseases of the skin and subcutaneous tissue Lipid Panel Today E55.9 - Vitamin D deficiency, unspecified, M25.50 - Pain in unspecified joint, R20.0 - Anesthesia of skin, R20.2 - Paresthesia of skin, Z84.0 - Family history of diseases of the skin and subcutaneous tissue Rheumatoid Factor Today E55.9 - Vitamin D deficiency, unspecified, M25.50 - Pain in unspecified joint, R20.0 - Anesthesia of skin, R20.2 - Paresthesia of skin, Z84.0 - Family history of diseases of the skin and subcutaneous tissue Magnesium Today R20.0 - Anesthesia of skin, R20.2 - Paresthesia of skin Referrals Rheumatology Referral E55.9 - Vitamin D deficiency, unspecified, M25.50 - Pain in unspecified joint, R20.0 - Anesthesia of skin, R20.2 - Paresthesia of skin, Z84.0 - Family history of diseases of the skin and subcutaneous tissue
[2025-03-27 08:12] VITALS: BP 90/54; PULSE 74; RESP 15; TEMP 36.9; O2SAT 99; BMI 24.5
== END 2025-03-27 08:48 | disposition home or self-care (01) ==
LOC: HO.HMCC 07:54
PROVIDERS: PCP Internal Medicine; Visit Provider Internal Medicine
DX: M25.531 Pain in right wrist (principal); M25.532 Pain in left wrist; M25.50 Pain in unspecified joint; R20.0 Anesthesia of skin; R20.2 Paresthesia of skin

== ENCOUNTER 2025-06-16 14:38 | Outpatient (REF) | payer BC, SELFPAY ==
--- NOTE | 2025-06-16 14:40 | EMG_ITS ---
Chief complaint: Numbness and tingling both feet and hands, history of pernicious anemia for the last 2 years, history of fibromyalgia. On exam, low arches on both feet. No atrophy. No weakness. Reason for referral: Evaluate for neuropathy, rule out Carpal Tunnel Syndrome Referred by: Dr. Ordoñez Procedure done: Bilateral upper extremities/lower extremities NCS/EMG Precautions and/or limitations: None The limb temperature was monitored continuously and remained between 32-36 degrees C during the performance of the NCS. Nerve Conduction Studies Anti Sensory Summary Table ?Stim Site NR Onset (ms) Norm Onset (ms) Peak (ms) Norm Peak (ms) O-P Amp (?V) Norm O-P Amp Site1 Site2 Delta-0 (ms) Dist (cm) Ace (m/s) Norm Ace (m/s) Left Median Anti Sensory (2nd Digit) Wrist ? 2.4 3.2 <3.6 75.5 >10 Wrist 2nd Digit 2.4 14.0 58 Right Median Anti Sensory (2nd Digit) Wrist ? 2.3 3.0 <3.6 47.4 >10 Wrist 2nd Digit 2.3 14.0 61 Left Sural Anti Sensory (Lat Mall) Calf ? 3.7 4.6 <4.0 11.6 >5.0 Calf Lat Mall 3.7 14.0 38 Right Sural Anti Sensory (Lat Mall) Calf ? 3.5 4.3 <4.0 4.2 >5.0 Calf Lat Mall 3.5 14.0 40 Left Ulnar Anti Sensory (5th Digit) Wrist ? 2.5 3.2 <3.7 25.7 >15.0 Wrist 5th Digit 2.5 14.0 56 Right Ulnar Anti Sensory (5th Digit) Wrist ? 2.4 3.1 <3.7 15.8 >15.0 Wrist 5th Digit 2.4 14.0 58 Motor Summary Table ?Stim Site NR Onset (ms) Norm Onset (ms) O-P Amp (mV) Norm O-P Amp iAmp (mV) Amp (1st) (%) Site1 Site2 Delta-0 (ms) Dist (cm) Ace (m/s) Norm Ace (m/s) Left Median Motor (Abd Poll Brev) Wrist ? 3.2 <3.9 8.6 >4.5 10.3 100.0 Elbow Wrist 4.1 23.5 57 >45 Elbow ? 7.3 6.8 8.5 79.1 Right Median Motor (Abd Poll Brev) Wrist ? 2.9 <3.9 11.5 >4.5 13.0 100.0 Elbow Wrist 4.4 21.5 49 >45 Elbow ? 7.3 9.9 11.3 86.1 Right Peroneal Motor (Ext Dig Brev) Ankle ? 4.4 <4.0 6.3 >2.5 8.4 100.0 Ankle Ext Dig Brev 4.4 0.0 B Fib ? 11.6 7.2 9.5 114.3 B Fib Ankle 7.2 33.5 47 >40 Poplt ? 12.5 7.8 10.1 123.8 Poplt B Fib 0.9 6.0 67 >40 Left Tibial Motor (Abd Ceballos Brev) Ankle ? 6.6 <5 1.3 >2.5 1.9 100.0 Ankle Abd Ceballos Brev 6.6 0.0 Knee ? 16.0 2.5 3.5 192.3 Knee Ankle 9.4 42.0 45 >40 Right Tibial Motor (Abd Ceballos Brev) Ankle ? 5.5 <5 4.8 >2.5 6.2 100.0 Ankle Abd Ceballos Brev 5.5 0.0 Knee ? 12.1 2.7 3.9 56.3 Knee Ankle 6.6 40.0 61 >40 Left Ulnar Motor (Abd Dig Minimi) Wrist ? 2.8 <3.0 10.0 >5 12.0 100.0 B Elbow Wrist 3.7 22.0 59 >45 B Elbow ? 6.5 9.3 11.4 93.0 A Elbow B Elbow 1.9 10.0 53 >45 A Elbow ? 8.4 8.6 10.9 86.0 Right Ulnar Motor (Abd Dig Minimi) Wrist ? 2.8 <3.0 8.8 >5 10.9 100.0 B Elbow Wrist 3.5 20.0 57 >45 B Elbow ? 6.3 7.7 9.7 87.5 A Elbow B Elbow 2.1 10.0 48 >45 A Elbow ? 8.4 7.9 10.1 89.8 EMG ?Side Muscle Nerve Root Ins Act Fibs Psw Amp Dur Poly Recrt Int Pat Comment Right 1stDorInt Ulnar C8-T1 Nml Nml Nml Nml Nml 0 Nml Complete Right FlexCarRad Median C6-7 Nml Nml Nml Nml Nml 0 Nml Complete Right Biceps Musculocut C5-6 Nml Nml Nml Nml Nml 0 Nml Complete Right Triceps Radial C6-7-8 Nml Nml Nml Nml Nml 0 Nml Complete Right Deltoid Axillary C5-6 Nml Nml Nml Nml Nml 0 Nml Complete Right AbdHallucis MedPlantar S1-2 Nml Nml Nml Nml Nml 0 Nml Complete Right AntTibialis Dp Br Peron L4-5 Nml Nml Nml Nml Nml 0 Nml Complete Right PostTibialis Tibial L5, S1 Nml Nml Nml Nml Nml 0 Nml Complete Right MedGastroc Tibial S1-2 Incr 1+ 1+ Nml Nml 0 Nml Complete Right VastusMed Femoral L2-4 Nml Nml Nml Nml Nml 0 Nml Complete Left AbdHallucis MedPlantar S1-2 Incr 1+ 1+ Nml Nml 0 Nml Complete Left AntTibialis Dp Br Peron L4-5 Nml Nml Nml Nml Nml 0 Nml Complete Left PostTibialis Tibial L5, S1 Nml Nml Nml Nml Nml 0 Nml Complete Left MedGastroc Tibial S1-2 Nml Nml Nml Nml Nml 0 Nml Complete Left VastusMed Femoral L2-4 Nml Nml Nml Nml Nml 0 Nml Complete Paraspinal EMG ?Side Muscle Nerve Root Ins Act Fibs Psw Comment Right Lumbar Upper Rami Nml Nml Nml Right Lumbar Mid Rami Nml Nml Nml Right Lumbar Lower Rami Nml Nml Nml Left Lumbar Upper Rami Nml Nml Nml Left Lumbar Mid Rami Nml Nml Nml Left Lumbar Lower Rami Nml Nml Nml FINDINGS: Right peroneal nerve showed prolonged distal latency, normal amplitude and normal conduction velocity. Right tibial nerve showed prolonged distal latency, normal amplitude and normal conduction velocity. Left tibial nerve showed prolonged distal latency, small amplitude and normal conduction velocity. Right sural nerve showed prolonged peak latency and small amplitude. Left sural nerve showed prolonged peak latency. All other nerves tested were within normal. Concentric needle EMG was performed in selected muscles of the right upper extremity, bilateral lower extremities, lumbar paraspinals. Study revealed signs of electric abnormalities as shown in the table above. Right medial gastrocnemius and left AH showed increased insertional activity, PSWs and fibrillations. No denervation seen on lumbar paraspinals. IMPRESSION: 1. This is an abnormal study. 2. 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 3. There is no electrodiagnostic evidence for median neuropathy, ulnar neuropathy, brachial plexopathy, or cervical radiculopathy. There is no evidence for lumbosacral plexopathy or lumbar radiculopathy. Thank you for your kind referral. Rachael Felder MD, PRABHA Board Certified, [place] [employer] and Rehabilitation (ABPMR) Board Certified, [place] Board [employer] Electrodiagnostic [employer] (ABEM) CODIN 26599 x 3 MTDD
--- OUTSIDE RECORDS SUMMARY | 2025-06-16 14:40 | XMS_ITS | Clinical Summary ---
Author Organization [facility] Address [address] [place] [address] Phone Care Team Providers Care Orthopedic Technician Name Role Phone Moreno Barron MD Primary Care Provider [phone] Allergies Active Allergy Reactions Criticality Noted Date Comments Aspirin 09/14/2015 nosebleed Atomoxetine Other 02/01/2025 Hearing loss Fexofenadine 10/29/2020 Other 12/29/2024 Pollen Extracts 12/29/2024 [...] 30 DAYS MAY HOLD FOR LOOSE STOOLS 12/20/19 25 Active levothyroxine (SYNTHROID, LEVOTHROID) 25 mcg tablet Take 1 tablet (25 mcg total) by mouth 1 (one) time each day. 07/15/20 23 Active magnesium oxide (MAG-OX) 400 mg magnesium tablet Take 400 mg by mouth daily. Active amitriptyline (ELAVIL) 10 mg tablet at bedtime. Active citalopram (CeleXA) 20 mg tablet TAKE 1.5 TABLET BY MOUTH EVERY DAY DIRECTED Active drospirenone-et hinyl estradiol-levom efolate calcium (BEYAZ,ASHU) 3-0.02-0.451 mg (24) (4) per tablet Take 1 tablet by mouth 1 (one) time each day. 28 tablet 11 02/10/20 25 026 Active cyanocobalamin (VITAMIN B-12) 1,000 mcg/mL injection 02/08/20 25 Active famotidine (PEPCID) 40 mg tablet Take 1 tablet (40 mg total) by mouth 1 (one) time each day. 08/02/20 24 Active Emgality Pen 120 mg/mL injection pen INJECT 120MG SUBCUTANEOUSLY ONE TIME PER MONTH MAINTENANCE DOSE 02/02/20 25 Active minoxidiL (LONITEN) 2.5 mg tablet 02/08/20 25 Active BD Luer-Korey Syringe 3 mL 23 x 1 syringe DIRECTED TO INJECT VITAMIN B-12 11/16/20 24 Active cholecalciferol (VITAMIN D-3) 5,000 Units tablet Take 125 mcg by mouth daily. 02/03/20 24 Active hydrOXYzine HCL (ATARAX) 10 mg tablet TAKE ONE TO TWO TABLETS TWICE DAILY NEEDED FOR ANXIETY OR INSOMNIA 03/21/20 25 Active loratadine (CLARITIN) 10 mg tablet Take 1 tablet (10 mg total) by mouth. 02/03/20 24 Active predniSONE (DELTASONE) 20 mg tablet Take 1 tablet (20 mg total) by mouth 1 (one) time each day. for 10 days 02/22/20 25 Active Nurtec 75 mg dispersible tablet NEEDED FOR MIGRAINE HEADACHE FOR 30 DAYS 75 MG ORALLY DAILY NEEDED (MD GONZALO AWARE) 03/17/20 25 Active Active Problems Problem Noted Date Diagnosed Date Pernicious anemia 02/01/2025 Epistaxis 12/29/2024 Headache 12/29/2024 Female hirsutism 03/19/2022 Seasonal allergies 05/10/2020 ADHD 11/22/2019 Overview (12/29/2024): Per Dr. Moctezuma Migraine with aura and witho ut status migrainosus, not intractable 05/05/2017 Generalized anxiety disorder 09/14/2015 Overview (12/29/2024): Psychologist:tolerating paxil without issue. PMS (premenstrual syndrome) 09/14/2015 Encounters Date Type Department Care Team Description 05/01/2025 9:45 AM EDT Office Visit Obstetrics & Gynecology - [address] [address] Sanaz Posadas CNM Encounter for gynecological examination without abnormal finding (Primary Dx) from Last 3 Months Immunizations Name Administration Dates Next Due DTP 05/19/1996, 5,1995,03/26 DTaP (Infanrix) 6wks to less than 7yo 08/11/2000 OPwH-TBU-HYI (Pentacel) 2mo to less than 5yo 05/19/1996,1995,1995,03/26 H1N1 Inj Preservative Free 12/05/2009 HPV, Quadrivalent 11/26/2007,05/17/2007,03/16/20 07 Hepatitis B Pediatric (Enger ix B; Recombivax HB) to less than 20 yo 1995,1995,1995 Hib (HbOC) 05/19/1996, 5,1995,03/26 IPV Inactivated polio (Ipol) 6wks and older 08/11/2000 Influenza Quadravalent, MDCK , 0.5ml, with preservative (Flucelvax) 6mo and older 09/14/2019,08/06/2018,09/28/2017 Influenza Quadrivalent, 0.5m l, preservative free (Fluarix; FluLaval; Fluzone) ages 6mo and older (Afluria) 3yo and older 09/07/2023,11/26/2022,09/27/2021,08/06 Influenza trivalent, 0.5mL, preservative free (Fluarix; FluLaval; Fluzone) ages 6mo and older (Afluria) 3 years and older 10/08/2024,09/28/2008 Influenza trivalent, with pr eservative (Fluzone; Afluria) [...] SURGERY 1999 PROCEDURE: HISTORICAL HEART SURGERY(ASD,VSD,VALVES); COMMENT: [facility] OTHER SURGICAL HISTORY 2014 N/A PROCEDURE: [place] EXCISION PILONIDAL CYST/SINUS COMPLICATED Medical History Medical [...] Sexual Orientation Not on file Obstetrics History Para Term AB IAB SAB Ectopic Multiple Livin g Live Births 0 0 0 0 0 0 0 0 0 0 0 Last Filed Vital Signs Vital Sign Reading Time Taken Comments Blood Pressure 98/67 05/01/2025 9:48 AM EDT Pulse 70 05/01/2025 9:48 AM EDT Temperature - - Respiratory Rate - - Oxygen Saturation - - Inhaled Oxygen Concentration - - Weight 77.6 kg (171 lb) 05/01/2025 9:48 AM EDT Height 175.3 cm (5' 9 ) 05/01/2025 9:48 AM EDT Body Mass Index 25.25 05/01/2025 9:48 AM EDT Plan of Treatment Health Maintenance Due Date Last Done Comments Depression Screening 11/08/2022 HIV Screening 11/08/2022 Hepatitis C Screening 11/08/2022 Social Influencers of Health Screening 11/08/2022 Influenza Vaccine (#1) 2025 , 09/07/2023, 11/26/2022, Additional history exists Cholesterol Screening (Lipid Panel) 07/05/2026 07/05/2021 DTaP,Tdap,and Td Vaccines (8 - Td or Tdap) 07/27/2027 07/27/2017, 03/16/2007, 08/11/2000, Additional history exists Cervical Cancer Screening: HPV 03/29/2029 03/29/2024 Hepatitis B Vaccines Completed 1995, 1995, 1995 HIB Vaccines Completed 05/19/1996, 05/01, 1995, Additional history exists IPV Vaccines Completed 08/11/2000, 05/01, 05/19/1996, Additional history exists MMR Vaccines Completed 08/11/2000, 05/19/1996 HPV Vaccines Completed 11/26/2007, 04/30, 03/16/2007 Meningococcal ACWY Vaccine Aged Out 01/07/2011 N o longer eligible based on patient's age to complete this topic Varicella Vaccines Completed 01/07/2011, 05/17/1999 COVID-19 Vaccine Completed 10/08/2024, 07/2023, 10/11/2022, Additional history exists Hepatitis A Vaccines Aged Out No long er eligible based on patient's age to complete this topic Meningococcal B Vaccine Aged Out No l onger eligible based on patient's age to complete this topic Pneumococcal Vaccine: Pediatrics (0 to 5 Years) and At-Risk Patients (6 to 49 Years) Aged Out No longer eligible based [...] Results * Cervical Cancer Screening: HPV (03/29/2024) Pathologist [facility] Cervical Cancer Screening: HPV Negative, Abstracted Historical Provider HEALTH MAINTENANCE Final Result * Lipid panel (07/05/2021) LDL/HDL Ratio 3 0 - 4 Triglycerides 118 0 - 150 mg/dL Cholesterol 174 0 - 200 mg/dL HDL 67 >=40 mg/dL LDL Cholesterol 84 0 - 100 mg/dL Blood Venous blood specimen / Unknown Historical Provider LAB BLOOD ORDERABLES Amy l Result from Last 3 Months or Most Recently Relevant to Health Maintenance Insurance [facility] ([facility]) Care Teams Orthopedic Technician Relationship Specialty Start Date End Date Moreno Barron MD [address] [place] [id number] PCP - General Internal Medicine 08/16/15
--- OUTSIDE RECORDS SUMMARY | 2025-06-16 14:40 | XMS_ITS | Data Portability ---
Author Organization [place] - [facility], Allergy Address [address] [address] Care Team Providers Care Senior Contract Specialist Name Role Phone ASHLIE VIDHI Primary Care Provider Assessment Encounter Date Assessment Date Assessment LastModified by Organization Details LastModified Time 06/07/2024 06/07/2024 29 year old female with a history of dermatitis, presents today for evaluation of 2 days of right sided ear discomfort. Also undergoing intensive treatment for TMJ. On examination today there is dry flaky skin of the right canal meatus. There is moisture in the canal without significant drainage or debris. Recommend treatment for a right fungal otitis externa with clotrimazole drops and Lotrisone cream. She will follow up in a few weeks to recheck the ear. If discomfort persists but exam has normalized, TMJ is also a possible cause of her ear discomfort. [email or web address] Not available 06/07/2024 15:57:23 07/07/2024 07/07/2024 On examination today there is no evidence of infection. Reassurance was provided. Suggest use of mineral or olive oil drops a few times per week. She is questioning if she can use tea tree oil which is fine. She can use the Lotrisone as needed for flaky skin of the outer ear. Follow up as needed. [email or web address] Not available 07/07/2024 12:08:20 Plan of Treatment Reminders Order Date Submit Date Provider Last Modified By Organization Details Last Modified Time Details Appointments None recorded. Lab None recorded. Referral None recorded. Procedures None recorded. Surgeries None recorded. Imaging None recorded. Medication Orders clotrimazol e 1 % [facility] 2023 024 [id number] [address] [place], [address], 4 15:58:30 clotrimazol e-betametha sone 1 %-0.05 % topical cream 2023 024 [id number], [address] [place], [address], 4 15:58:29 Patient TargetsNo targets recorded. Patient InstructionsNo instructions recorded. Reason for Referral None Reported. Problems Name Problem SNOMED Code Status Onset Date Resolution Date Notes Provider Name and Address Organization Details Recorded Time Bleeding from nose 392135946 Active 2019 Epistaxis ; Note: Date Diagnosed : 04/04/2020 2:56 PM (R04.0) Not Available [facility] 4 03:13:37 Allergic rhinitis 45680483 Active 2020 Other allergic rhinitis; Note: Date Diagnosed : 03/19/2021 11:28 AM (J30.89) Not Available [facility] 4 03:13:37 Diffuse otitis externa 97331504 Active 2023 Emy proctor [place] - [facility] 4 15:55:37 Itching of skin 847667843 Active 2023 Emy proctor [place] - [facility] 4 12:04:54 Seasonal allergic rhinitis 578413510 Active 2023 DEBORAH BRISENO MD [address] [place] [address], [place], [address] , [facility] - [facility] 4 08:57:54 Problem Notes None recorded. Medical Equipment None Reported. Allergies Allergen ID Allergen Name Allergen Category Reaction Reaction Severity Criticality Documentation Date Start Date Code Code System Note Provider Name and Address Organization Details Recorded Time 821501 aspirin medicatio n other Not available Not available 04/12/2024 1191 RxNorm React ion: unkno wn, unspe cifie d;; Not Available [facility] 4 01:19:09 [id number] Substance with sulfonami de structure and antibacte rial mechanism of action (substanc e) medicatio n other Not available Not available 04/12/2024 46438 8003 SNOMED React ion: unkno wn, unspe cifie d;; Not Available [facility] 4 01:19:10 Medications Name Sig Start Date Stop Date Status Note LastModified by Organization Details LastModified Time amoxicill in 500 mg capsule TAKE 1 CAPSULE BY MOUTH TWICE A DAY active Not Available Not Available No t Available acetic acid 2 % ear solution 03/19 completed Medicati on ID: [id number] B rand Name: acetic acid Sen d Method: E-Prescr ibed Sub s Allowed: subs OK Medic ationGen ericName : acetic acid Not Available Not Available Not Available citalopra m 40 mg tablet 1 tablet by mouth 2020 active Medicati on ID: [id number] B rand Name: citalopr am Send Method: E-Prescr ibed Sub s Allowed: subs OK Medic ationGen ericName : citalopr am Not Available Not Available Not Available trazodone 50 mg tablet PLEASE SEE ATTACHED FOR DETAILED DIRECTIO NS active Not Available Not Available No t Available fluconazo le 150 mg tablet TAKE 1 TABLET BY MOUTH NOW THEN REPEAT IN 4-5 DAYS IF STILL SYMPTOMA TIC active Not Available Not Available No t Available citalopra m 10 mg tablet TAKE ONE TABLET EVERY DAY WITH 20 MG DOSE FOR TOTAL OF 30 MG active Not Available Not Available No t Available ondansetr on HCl 4 mg tablet TAKE 1 TABLET (4 MG) BY MOUTH EVERY 6 HOURS NEEDED FOR NAUSEA AND VOMITING FOR 30 DAYS active Not Available Not Available No t Available famotidin e 40 mg tablet TAKE 1 TABLET BY MOUTH EVERY DAY active Not Available Not Available No t Available prednison e 20 mg tablet TAKE 2 TABLETS BY MOUTH EVERY DAY FOR 5 DAYS active Not Available Not Available No t Available propranol ol ER 60 mg capsule,2 4 hr,extend ed release TAKE 1 CAPSULE BY MOUTH AT BEDTIME active Not Available Not Available No t Available metronida zole 500 mg tablet TAKE 1 TABLET BY MOUTH TWICE A DAY FOR 5 DAYS active Not Available Not Available No t Available SF 1.1 % dental gel 03/19 completed Medicati on ID: [id number] B rand Name: SF Send Method: E-Prescr ibed Sub s Allowed: subs OK Medic ationGen ericName : SF Not Available Not Available Not Available amoxicill in 500 mg tablet TAKE 1 TABLET BY MOUTH EVERY 6 HOURS UNTIL GONE active Not Available Not Available No t Available ofloxacin 0.3 % ear drops 04/24 completed Medicati on ID: [id number] B rand Name: ofloxaci n Send Method: E-Prescr ibed Sub s Allowed: subs OK Medic ationGen ericName : ofloxaci n Not Available Not Available Not Available citalopra m 20 mg tablet TAKE 1.5 TABLET BY MOUTH EVERY DAY DIRECTED active Not Available Not Available No t Available magnesium oxide 400 mg (241.3 mg magnesium ) tablet TAKE 1 TABLET BY MOUTH EVERY NIGHT AT BEDTIME, HOLD FOR LOOSE STOOLS active Not Available Not Available No t Available amitripty line 10 mg tablet TAKE 1 TABLET BY MOUTH AT BEDTIME. active Not Available Not Available No t Available paroxetin e 20 mg tablet 03/19 completed Medicati on ID: [id number] D uration Value: 90 Brand Name: paroxeti ne HCl Send Method: E-Prescr ibed Sub s Allowed: subs OK Speci al Instruct ion: TK 1 T PO QAM Medi cationGe nericNam e: paroxeti ne HCl Not Available Not Available Not Available cyanocoba lakeisha (vit B-12) 1,000 mcg/mL injection solution INJECT 1 ML INTRAMUS CULARLY ONCE A WEEK FOR 4 WEEKS, THEN MONTHLY THEREAFT ER active Not Available Not Available No t Available tacrolimu s 0.1 % topical ointment APPLY 1 APPLICAT ION TOPICALL Y TO AFFECTED AREAS TWICE A DAY active Not Available Not Available No t Available clotrimaz ole-betam ethasone 1 %-0.05 % topical cream APPLY A SMALL AMOUNT TO RIGHT EAR CANAL OPENING TWICE DAILY FOR 2 WEEKS. active Not Available Not Available No t Available clotrimaz ole 1 % topical solution 4 drops to right ear twice daily x 2 weeks 2023 active Not Available Not Available Not Avai lable fluocinol one 0.01 % topical body oil APPLY TO AFFECTED AREA 2-3X/WK active Not Available Not Available No t Available ibuprofen 600 mg tablet 03/19 completed Medicati on ID: [id number] D uration Value: 30 Brand Name: ibuprofe n Send Method: E-Prescr ibed Sub s Allowed: subs OK Speci al Instruct ion: TK 1 T PO Q 6 H PRF PAIN Med icationG enericNa me: ibuprofe n Not Available Not Available Not Available methylpre dnisolone 4 mg tablets in a dose pack START TO TAKE THE MEDICATI ON THE MORNING AFTER ORAL APPLIANC E DELIVERY . TAKE DIRECTED ON BOX active Not Available Not Available No t Available BD Luer-Korey Syringe 3 mL 22 gauge x 1 USE DIRECTED TO INJECT VITAMIN B-12 active Not Available Not Available No t Available fluticaso ne propionat e 50 mcg/actua tion nasal spray,goran pension TAKE 1 SPRAYS (INTRANA KENDALL) 2 TIMES PER DAY FOR 90 DAYS FOR PEDIATRI CS >2 Y/O active Not Available Not Available No t Available amoxicill in 875 mg-potass ium clavulana te 125 mg tablet TAKE 1 TABLET BY MOUTH TWICE A DAY FOR 7 DAYS active Not Available Not Available No t Available atomoxeti ne 40 mg capsule TAKE 1 CAPSULE BY MOUTH EVERY DAY DIRECTED FOR 30 DAYS active Not Available Not Available No t Available Alyssa 0.35 mg tablet 03/19 completed Medicati on ID: [id number] D uration Value: 28 Brand Name: Alyssa Wiggins nd Method: E-Prescr ibed Sub s Allowed: subs OK Medic ationGen ericName : Alyssa Not Available Not Available Not Available sodium fluoride 1.1 %-potassi um nitrate 5 % dental paste USE 2-3X/WES LY, SPIT OUT EXCESS DO NOT RINSE WITH WATER. NO EATING OR DRINKING FOR 45 MIN AFTER. active Not Available Not Available No t Available drospiren -e.estrad -l.mefol 3 mg-0.02 mg-0.451 mg(24)/0. 451 mg(4)tabl et TAKE 1 TABLET BY MOUTH EVERY DAY active Not Available Not Available No t Available EpiPen 2-Vasiliy 0.3 mg/0.3 mL injection , auto-inje ctor Inject 1 pen injector single dose as needed 2023 active Medicati on ID: [id number] D uration Value: 1 Brand Name: EpiPen 2-Vasiliy Se nd Method: E-Prescr ibed Sub s Allowed: subs OK Medic ationGen ericName : EpiPen 2-Vasiliy Not Available Not Available Not Available Emgality Pen 120 mg/mL subcutane ous pen injector PLEASE SEE ATTACHED FOR DETAILED DIRECTIO NS active Not Available Not Available No t Available Flucelvax Quad 03/19 completed Medicati on ID: [id number] D uration Value: 1 Brand Name: Flucelva x Quad 0 Send Method: E-Prescr ibed Sub s Allowed: subs OK Medic ationGen ericName : Flucelva x Quad 0 Not Available Not Available Not Available Nurtec ODT 75 mg disintegr ating tablet TAKE 1 TABLET BY MOUTH DAILY NEEDED FOR MIGRAINE HEADACHE FOR 30 DAYS active Not Available Not Available No t Available Vitals Date Recorded Body height Body mass index (BMI) Body weight Provider Name and Address Organization Details Last Updated DateTime 06/07/2024 175.26 cm 25.8 kg/m2 83485.66 g Nancy Mays [place] - [facility] 06/07/2024 15:27:01 Date Recorded Body height Body mass index (BMI) Body weight Provider Name and Address Organization Details Last Updated DateTime 07/07/2024 175.26 cm 25.8 kg/m2 53674.66 g Nancy Mays [place] - [facility] 07/07/2024 11:08:29 Date Recorded Body height Body mass index (BMI) Body weight Provider Name and Address Organization Details Last Updated DateTime 09/19/2024 175.26 cm 24.4 kg/m2 45751.74 g Elif Nieves [place] - [facility] 09/19/2024 08:42:20 Social History None recorded. Functional Status None recorded. Mental Status None recorded. Family History Nothing Reported. Medical History No medical history recorded. Gynecological HistoryNo gynecological history recorded. Obstetrics History GPAL:G 0 P 0 0 0 0 Past Encounters Encounter ID Performer Location Encounter Start Date Encounter Closed Date Diagnosis/Indication Diagnosis SNOMED-CT Code Diagnosis ICD10 Code Diagnosis Note [id number] EMY GAMBLE PA-C [facility] on [address] [place] [address], [place] [address] 06/07/2024 15:03:57 06/07/2024 15:48:34 Diffuse otitis externa 74517553 H60.311 [id number] EMY GAMBLE PA-C [facility] on [address] [place] [address], [place] [address] 07/07/2024 10:59:06 07/07/2024 13:00:56 Itching of skin 188393795 L29.9 [id number] DEBORAH BRISENO MD [facility] [address] [place] [address] 09/19/2024 08:39:00 09/19/2024 08:57:42 Seasonal allergic rhinitis 108971533 J30.2 The patient is benefiting from immunother apy and should continue. No local or systemic reactions. She is only using antihistam julito as needed. I discussed avoidance of foods she is allergic/s ensitive to and carrying her epipen with her. We will continue therapy for another 6 months as she feels she is still having incrementa l improvemen t. Will reevaluate in 6 months and consider stopping therapy. Health Concerns Section Related Observation LastModified by Organization Detai ls LastModified Time None Recorded Concern Status LastModified by Organization Details LastModified Time None Recorded Advance Directives Directive None Recorded Payers Insurance Date Sequence Insurance Name Policy Number Policy De La Vega Covered Member ID De La Vega Member ID Guarantor Name 10/04/2024 1 [facility] [id number] 2 Tammy Naqvi [id number] Tammy Naqvi Notes Date Note Type Note Provider Name and Address Organization Details Recorded Time 06/07/2024 text/html 29 year old female, patient of for allergic rhinitis on immunotherapy. She is here today with concerns for a right ear infection. Reports chronic difficulties with ear itching and irritation. She has dermatitis that affects her scalp and ears. She has been having right sided drainage and discomfort for two days now. Also undergoing intensive treatment for TMJ. HARMAN LLAMAS MD [address], [address], [place] - [facility] [place] [address]2024 07:44:48 07/07/2024 text/html 29 year old fema efrain with a history of dermatitis presents today for follow up for bilateral fungal OE. She used the clotrimazole drops and Lotrisone cream which helped. Then she used the vinegar and this made her ear flaky again. Emy proctor [place] - [facility] 07/07/2024 12:08:31 09/19/2024 text/html allergiesShe has been receiving SLIT since 06/19. She notes improvement in her allergy symptoms in general. Did have a sinus infection which required prednisone a couple weeks ago. Has some itching under her tongue when she administers the allergy drops but no swelling or systemic reactions. Has noted sensitivity to strawberries and some nuts. DEBORAH BRISENO MD [address] [place] [address], [address], [place] - [facility] 09/19/2024 08:59:36 OBGyn Episode No OBEpisode recorded.
== END 2025-06-16 14:39 | disposition home or self-care (01) ==
LOC: HO.NEURO 14:38
PROVIDERS: PCP Internal Medicine; Visit Provider Internal Medicine
DX: R20.0 Anesthesia of skin (principal); R20.2 Paresthesia of skin; M25.531 Pain in right wrist; M25.532 Pain in left wrist; R94.131 Abnormal electromyogram [EMG]
CPT/HCPCS: 95886; 95913

== ENCOUNTER → 2025-06-16 14:40 | Outpatient (BNV) | payer BC, SELFPAY | PROVIDERS: PCP Internal Medicine; Visit Provider Physical Medicine & Rehabilitation | DX: G62.89 Other specified polyneuropathies (principal) | CPT/HCPCS: 95886; 95913 ==

== ENCOUNTER 2025-06-20 09:23 | Outpatient (AMB) | payer BC, SELFPAY ==
[2025-06-20 09:31] VITALS: BP 110/68; PULSE 75; O2SAT 98; BMI 25.2
--- NOTE | 2025-06-20 09:31 | MHC.OFFVIS ---
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: No Accompanied by: Self / Same As Patient Allergies environmental allergies Allergy (Unknown, Verified 06/20/25 09:33) Unknown house dust Allergy (Unknown, Verified 06/20/25 09:33) Unknown pollen extracts Allergy (Unknown, Verified 06/20/25 09:33) Unknown Sulfa (Sulfonamide Antibiotics) Allergy (Verified 06/20/25 09:33) Unknown topiramate Allergy (Verified 06/20/25 09:33) Unknown atomoxetine Adverse Reaction (Verified 06/20/25 09:33) tinnitus Medication List - Last Reconciled 06/20/25 by KESHIA Esposito citalopram 20 mg PO DAILY citalopram 10 mg PO DAILY clotrimazole-betamethasone 1-0.05 % appl topical PRN cyanocobalamin (vitamin B-12) Inject 1 mL(1000 mcg) intramuscularly once a week for 4 weeks, then monthly thereafter 1 week drospirenone-e.estradiol-lm.FA 3-0.02-0.451 mg (24) (4) (Beyaz (28)) 1 tab PO DAILY galcanezumab-gnlm (Emgality Pen) 120 mg subcut ONCE 30 days hydroxyzine HCl 10 mg PO BEDTIME PRN loratadine (Allergy Relief (loratadine)) 10 mg PO DAILY magnesium oxide 400 mg PO BEDTIME 30 days minoxidil 1.25 mg PO DAILY propranolol ER 60 mg PO BEDTIME 90 days rimegepant (Nurtec ODT) 75 mg orally daily PRN; 30 days syringe with needle (BD Luer-Korey Syringe) As directed to inject vitamin B-12 HPI Comments Details: 30-yr-old female presents for f/u visit of migraine, as well as to discuss symptoms of paresthesias. Patient reports since last visit, she has undergone workup for possible fibromyalgia. Patient has reported increasing joint pain, as well as increasing numbness and tingling in both hands and feet. She has been compliant with vitamin B12 injections for pernicious anemia- the dose was held recently to determine if she needed hematology consult. Through her PCP office, interval labs showed positive ANGELINE 1:1280, B12 354 in February and 602 in June 2024, folate 12.2, HGB 12.2 and HCT 35.2 an MCV 79.3, WBC 3.4. She notes a family history of lupus. Since the lab work was completed, patient had rheumatology consult, and patient reports it was suggested she has fibromyalgia. And suggested that they ANGELINE could have been triggered by her beta-shyanne use. Since, patient underwent BUE/BLE EMG/NCS, results of which were notable for sensory-motor polyneuropathy, with both demyelinating and axonal features. And without evidence for for median neuropathy, ulnar neuropathy, brachial plexopathy, cervical radiculopathy, lumbosacral plexopathy or lumbar radiculopathy. During the EMG/NCS study, it was noted that patient has bilateral low arches without weakness or atrophy. Patient states her father also has flat feet, as well as clubbed fingers- he does not smoke, but has a history of burn injury as an infant/child, and otherwise does not routinely seek medical care. Patient is unaware of any known family history of polyneuropathies what recurrent mono-neuropathies. Patient's mother also has been recently diagnosed with pernicious anemia and has bilateral lower extremity tingling symptoms. Patient states her psychiatric provider would like to change her citalopram to Cymbalta, but wanted our opinion 1st. 12/20/2024, previous HPI: Pt reports she has had a reduction in her monthly migraine days and severity of migraine attacks since starting Emgality. Prior to starting Emgality she would have 4 migraine attacks per month which could last up to 3 days each. She is tolerating Emgality well, but does make sure to remove from refrigerator at least 1 hour to reduce injection discomfort. She states that her insurance has only been approving her Emgality for three-month periods, which does make it difficult to stay consistent with use. Pt reports she is currently having 2 migraine headache days per month. Though she is overall photophobic. Using Nurtec ODT 75mg prn- which continues to be effective well.. She is continuing to treat her TMJ s/s- wearing a retainer which is helping. She is finding that she is more foggy, confused, and having difficulty at work and at home. Notes that sometimes she will forget something told to her either at home or at work. She may forget to do her household tasks. If she is engaged in something, she may forget to eat. She has had some weight loss. She is also followed by GI. She has been having some increased stress at home, related to her grandmother needing some assistance with healthcare issues. Was tried on atomoxetine but this caused hearing issues/tinnitus. Patient states her current psychiatric provider we will not trial her on a stimulant type ADHD tx and has requested that she see a psychiatrist with experience in people with cardiac conditions. She is hesitant to add another specialist to her care team. However, she does have a upcoming appointment with [facility] adult cardiology clinic. Has plans to have a stress test to assess if she can safely take stimulant ADHD tx. She states her [facility] geospatial engineer has stated that she does not have current cardiac dysfunction. 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, unspecified Obstruction of nasal valve Disturbance of sleep Vitamin D deficiency Vitamin B12 deficiency TMJ (temporomandibular joint disorder) Bruxism (teeth grinding) Chronic headaches Allergic rhinitis Hx of epistaxis ADHD VSD (ventricular septal defect) ASD (atrial septal defect) PCOS (polycystic ovarian syndrome) Depression with anxiety Surgical History Hx of atrial septal defect repair Hx of ventricular septal defect repair History of surgical removal of pilonidal cyst Family History Father Mental health disorder HTN (hypertension) Mother HTN (hypertension) IBS (irritable bowel syndrome) Sister Anxiety Depression Social History Housing: House Alcohol intake: current Alcohol intake frequency: a few times a month Patient Tobacco Use Status: Never used Tobacco e-Cigarette/Vaping Use: Never Used Current occupational status: employed Cognitive needs: No Hearing needs: No Vision needs: Yes Physical Exam Vital Signs: Last Vital Signs Pulse 75 06/20/25 09:31 BP 110/68 06/20/25 09:31 Pulse Ox 98 06/20/25 09:31 Oxygen Delivery Method Room Air 06/20/25 09:31 BMI result Body Mass Index 25.2 Const General: cooperative and no acute distress Orientation/consciousness: patient oriented x3 Resp Effort & Inspection: normal respiratory effort and able to speak in complete sentences Neuro Other: Mild bilateral finger hypermobility No evidence of bilateral hip hypermobility Bilateral low foot arches Bilateral lower extremity without skin discoloration, swelling, weakness. General: patient oriented x3 Cranial nerves: Yes CN's II-XII intact bilaterally Cognition (Neuro): normal cognition Psych Appearance: grossly normal Mental Status: mental status grossly normal Speech and movement: Normal speech and movement present Affect: normal affect Attitude: cooperative Assessment & Plan Assessment & Plan (1) Mixed axonal-demyelinating polyneuropathy: Code(s): G62.89 - Other specified polyneuropathies Category: Medical (2) Positive ANGELINE (antinuclear antibody): Code(s): R76.8 - Other specified abnormal immunological findings in serum Category: Medical (3) Family history of lupus erythematosus: Code(s): Z84.0 - Family history of diseases of the skin and subcutaneous tissue Category: Medical (4) Migraine: Comment: w/ aura s/s- however visual aura is prolonged Code(s): G43.909 - Migraine, unspecified, not intractable, without status migrainosus Category: Medical Qualifiers: Intractability: not intractable Migraine type: migraine (< 15 days per month) without aura Status migrainosus presence: without status migrainosus Qualified Code(s): G43.009 - Migraine without aura, not intractable, without status migrainosus (5) TMJ (temporomandibular joint disorder): Comment: Relieved by wearing mouth guard, sees [facility] Code(s): M26.609 - Unspecified temporomandibular joint disorder, unspecified side Category: Medical (6) ADHD: Comment: dx in 2019 Code(s): F90.9 - Attention-deficit hyperactivity disorder, unspecified type Category: Medical Qualifiers: Attention deficit-hyperactivity disorder type: combined inattentive-hyperactive Qualified Code(s): F90.2 - Attention-deficit hyperactivity disorder, combined type Plan For sensory motor axonal and demyelinating neuropathy: Patient's symptoms of bilateral hand and foot numbness and tingling have been progressing without weakness over last several months in setting of known pernicious anemia with decreasing serum vitamin B12 level (possibly secondary to holding vitamin B12 injection per GI-to eval if hematology consult needed), pernicious anemia, microcytic anemia, and in setting of family history of lupus and pernicious anemia. As well as, recent high titer ANGELINE although this result may be confounded by beta-shyanne use as well as presence of pernicious anemia. Thus we will check labs in urine studies to assess for underlying etiologies. We will also request rheumatology 2nd opinion. Upon review, consider nerve biopsy, and/or trialing alpha lipoic acid. Concur with psychiatric recommendation to adjust citalopram to Cymbalta. For cognition in setting of adult ADHD: Patient would benefit from optimizing management of her ADHD s/s. 02/02/2025, CPET at [facility], showed a severely depressed peak VO2 (14.9 mL/kg/minute), which was felt to be most likely secondary to physical deconditioning. Patient, per Cardiology note, was encouraged to increase aerobic physical activity to 150 minutes per week. And will follow-up with cardiology with the planned echocardiogram in 1 year. Information previously shared on adult ADHD symptom management. HST- normal. ? For overall headache management: Continue to optimize good self-care, including but not limited to maintaining a healthy diet,? adequate fluid intake, adequate sleep, and engaging in regular physical activity. Track headaches, especially after any treatment regimen changes. For acute headache treatment: Zofran 4mg q 4 hrs prn N/V/migraine attack. Continue Nurtec ODT 75mg po qd prn at onset of migraine. May adjunct w/ Tylenol, Ibuprofen, Naproxen, or Pamprin. Previous acute migraine medication trials: Sumatriptan 25mg- some effect, however would not increase d/t tachycardia at rest and h/o cardiac repair. Acute migraine medication contraindications: Triptans- as above ? For headache prevention medication: Magnesium 400mg qhs Continue Propranolol ER 60mg?qhs- prescribed for palpitations Continue Emgality 120 mg subcu q.month, as patient has had greater than 50% reduction in monthly migraine days. Previous migraine prevention medication trials: Topiramate- caused contact hives in her hands. Riboflavin 400mg qam- ineffective. Amitriptyline 10mg qhs- not tolerated.. Migraine prevention medication contraindications: None at this time ? f/u in 6 months or sooner prn. Orders: Orders Protein Electrophoresis 24HrUr Today D51.0 - Vitamin B12 deficiency anemia due to intrinsic factor deficiency, D64.9 - Anemia, unspecified, G62.89 - Other specified polyneuropathies, L21.9 - Seborrheic dermatitis, unspecified, M25.50 - Pain in unspecified joint, R76.8 - Other specified abnormal immunological findings in serum, Z84.0 - Family history of diseases of the skin and subcutaneous tissue Protein Electrophoresis, Serum Today D51.0 - Vitamin B12 deficiency anemia due to intrinsic factor deficiency, D64.9 - Anemia, unspecified, G62.89 - Other specified polyneuropathies, L21.9 - Seborrheic dermatitis, unspecified, M25.50 - Pain in unspecified joint, R76.8 - Other specified abnormal immunological findings in serum, Z84.0 - Family history of diseases of the skin and subcutaneous tissue Erythrocyte Sedimentation Rate Today D51.0 - Vitamin B12 deficiency anemia due to intrinsic factor deficiency, D64.9 - Anemia, unspecified, G62.89 - Other specified polyneuropathies, L21.9 - Seborrheic dermatitis, unspecified, M25.50 - Pain in unspecified joint, R76.8 - Other specified abnormal immunological findings in serum, Z84.0 - Family history of diseases of the skin and subcutaneous tissue HIV Ab/Ag Today D51.0 - Vitamin B12 deficiency anemia due to intrinsic factor deficiency, D64.9 - Anemia, unspecified, G62.89 - Other specified polyneuropathies, L21.9 - Seborrheic dermatitis, unspecified, M25.50 - Pain in unspecified joint, R76.8 - Other specified abnormal immunological findings in serum, Z84.0 - Family history of diseases of the skin and subcutaneous tissue Vitamin B6 Today D51.0 - Vitamin B12 deficiency anemia due to intrinsic factor deficiency, D64.9 - Anemia, unspecified, G62.89 - Other specified polyneuropathies, L21.9 - Seborrheic dermatitis, unspecified, M25.50 - Pain in unspecified joint, R76.8 - Other specified abnormal immunological findings in serum, Z84.0 - Family history of diseases of the skin and subcutaneous tissue Hepatitis A,B,C Profile Today D51.0 - Vitamin B12 deficiency anemia due to intrinsic factor deficiency, D64.9 - Anemia, unspecified, G62.89 - Other specified polyneuropathies, L21.9 - Seborrheic dermatitis, unspecified, M25.50 - Pain in unspecified joint, R76.8 - Other specified abnormal immunological findings in serum, Z84.0 - Family history of diseases of the skin and subcutaneous tissue ANCA Vasculitides Today D51.0 - Vitamin B12 deficiency anemia due to intrinsic factor deficiency, D64.9 - Anemia, unspecified, G62.89 - Other specified polyneuropathies, L21.9 - Seborrheic dermatitis, unspecified, M25.50 - Pain in unspecified joint, R76.8 - Other specified abnormal immunological findings in serum, Z84.0 - Family history of diseases of the skin and subcutaneous tissue Porphyrins Fractionated 24Hr Today D51.0 - Vitamin B12 deficiency anemia due to intrinsic factor deficiency, D64.9 - Anemia, unspecified, G62.89 - Other specified polyneuropathies, L21.9 - Seborrheic dermatitis, unspecified, M25.50 - Pain in unspecified joint, R76.8 - Other specified abnormal immunological findings in serum, Z84.0 - Family history of diseases of the skin and subcutaneous tissue Porphyrins, Fractionated Plasm Today D51.0 - Vitamin B12 deficiency anemia due to intrinsic factor deficiency, D64.9 - Anemia, unspecified, G62.89 - Other specified polyneuropathies, L21.9 - Seborrheic dermatitis, unspecified, M25.50 - Pain in unspecified joint, R76.8 - Other specified abnormal immunological findings in serum, Z84.0 - Family history of diseases of the skin and subcutaneous tissue Cryoglobulin Today D51.0 - Vitamin B12 deficiency anemia due to intrinsic factor deficiency, D64.9 - Anemia, unspecified, G62.89 - Other specified polyneuropathies, L21.9 - Seborrheic dermatitis, unspecified, M25.50 - Pain in unspecified joint, R76.8 - Other specified abnormal immunological findings in serum, Z84.0 - Family history of diseases of the skin and subcutaneous tissue Other Ref Test - Misc Today D51.0 - Vitamin B12 deficiency anemia due to intrinsic factor deficiency, D64.9 - Anemia, unspecified, G62.89 - Other specified polyneuropathies, L21.9 - Seborrheic dermatitis, unspecified, M25.50 - Pain in unspecified joint, R76.8 - Other specified abnormal immunological findings in serum, Z84.0 - Family history of diseases of the skin and subcutaneous tissue C Reactive Protein Today D51.0 - Vitamin B12 deficiency anemia due to intrinsic factor deficiency, D64.9 - Anemia, unspecified, G62.89 - Other specified polyneuropathies, L21.9 - Seborrheic dermatitis, unspecified, M25.50 - Pain in unspecified joint, R76.8 - Other specified abnormal immunological findings in serum, Z84.0 - Family history of diseases of the skin and subcutaneous tissue Ferritin Today D51.0 - Vitamin B12 deficiency anemia due to intrinsic factor deficiency, D64.9 - Anemia, unspecified, G62.89 - Other specified polyneuropathies, L21.9 - Seborrheic dermatitis, unspecified, M25.50 - Pain in unspecified joint, R76.8 - Other specified abnormal immunological findings in serum, Z84.0 - Family history of diseases of the skin and subcutaneous tissue IRON PROFILE Today D51.0 - Vitamin B12 deficiency anemia due to intrinsic factor deficiency, D64.9 - Anemia, unspecified, G62.89 - Other specified polyneuropathies, L21.9 - Seborrheic dermatitis, unspecified, M25.50 - Pain in unspecified joint, R76.8 - Other specified abnormal immunological findings in serum, Z84.0 - Family history of diseases of the skin and subcutaneous tissue Homocysteine Today D51.0 - Vitamin B12 deficiency anemia due to intrinsic factor deficiency, D64.9 - Anemia, unspecified, G62.89 - Other specified polyneuropathies, L21.9 - Seborrheic dermatitis, unspecified, M25.50 - Pain in unspecified joint, R76.8 - Other specified abnormal immunological findings in serum, Z84.0 - Family history of diseases of the skin and subcutaneous tissue Lyme IgG/IgM w/reflex to WB Today D51.0 - Vitamin B12 deficiency anemia due to intrinsic factor deficiency, D64.9 - Anemia, unspecified, G62.89 - Other specified polyneuropathies, L21.9 - Seborrheic dermatitis, unspecified, M25.50 - Pain in unspecified joint, R76.8 - Other specified abnormal immunological findings in serum, Z84.0 - Family history of diseases of the skin and subcutaneous tissue Methylmalonic Acid Today D51.0 - Vitamin B12 deficiency anemia due to intrinsic factor deficiency, D64.9 - Anemia, unspecified, G62.89 - Other specified polyneuropathies, L21.9 - Seborrheic dermatitis, unspecified, M25.50 - Pain in unspecified joint, R76.8 - Other specified abnormal immunological findings in serum, Z84.0 - Family history of diseases of the skin and subcutaneous tissue Hemoglobin A1c Today D51.0 - Vitamin B12 deficiency anemia due to intrinsic factor deficiency, D64.9 - Anemia, unspecified, G62.89 - Other specified polyneuropathies, L21.9 - Seborrheic dermatitis, unspecified, M25.50 - Pain in unspecified joint, R76.8 - Other specified abnormal immunological findings in serum, Z84.0 - Family history of diseases of the skin and subcutaneous tissue Vitamin B1 Today D51.0 - Vitamin B12 deficiency anemia due to intrinsic factor deficiency, D64.9 - Anemia, unspecified, G62.89 - Other specified polyneuropathies, L21.9 - Seborrheic dermatitis, unspecified, M25.50 - Pain in unspecified joint, R76.8 - Other specified abnormal immunological findings in serum, Z84.0 - Family history of diseases of the skin and subcutaneous tissue Heavy Metals Screen 24H Urine Today D51.0 - Vitamin B12 deficiency anemia due to intrinsic factor deficiency, D64.9 - Anemia, unspecified, G62.89 - Other specified polyneuropathies, L21.9 - Seborrheic dermatitis, unspecified, M25.50 - Pain in unspecified joint, R76.8 - Other specified abnormal immunological findings in serum, Z84.0 - Family history of diseases of the skin and subcutaneous tissue Referrals Rheumatology Referral G62.89 - Other specified polyneuropathies, R76.8 - Other specified abnormal immunological findings in serum, Z84.0 - Family history of diseases of the skin and subcutaneous tissue Coding Level of Care Code Est Pt Level 4 (57514) Diagnoses Mixed axonal-demyelinating polyneuropathy G62.89 Positive ANGELINE (antinuclear antibody) R76.8 Family history of lupus erythematosus Z84.0 Migraine without aura and without status migrainosus, not intractable G43.009 Intractability: not intractable Migraine type: migraine (< 15 days per month) without aura Status migrainosus presence: without status migrainosus TMJ (temporomandibular joint disorder) M26.609 Attention deficit hyperactivity disorder (ADHD), combined type F90.2 Attention deficit-hyperactivity disorder type: combined inattentive-hyperactive
--- OUTSIDE RECORDS SUMMARY | 2025-06-20 09:58 | XMS_ITS | Data Portability ---
Author Organization [facility], [address] Address [address] [place] [address] Care Team Providers Care Regional Safety Manager Name Role Phone [facility] Primary Care Provider Assessment No assessment recorded. Plan of Treatment Reminders Order Date Submit Date Provider Last Modified By Organization Details Last Modified Time Details Appointments None recorded. Lab SARS CoV 2 (COVID-19) Ag, QL, [place], upper respiratory specimen 2022 023 [email or web address] [facility] [address], [address] [place], [address], 09:39:17 Referral None recorded. Procedures None recorded. Surgeries None recorded. Imaging None recorded. Medication Orders amoxicillin 875 mg-potassiu m clavulanate 125 mg tablet 2022 023 [email or web address] [id number], [address] [place], [address], 15:12:51 ketorolac 60 mg/2 mL intramuscul ar solution 2022 023 Not available 08:48:02 Patient TargetsNo targets recorded. Patient Instructions Encounter Date Encounter Id Patient Instructions Last Modified By Organization Details Last Modified Time 12/26/2022 [id number] headache: care instructions [email or web address] Not available 12/26/2022 09:37:29 Continue your regular treatment plan at home. [email or web address] Not available 12/26/2022 09:36:07 11/05/2023 [id number] ear infection (otitis media): care instructions Not [...] ve Not Available [address] [place], [address], 11/05/2023 08:50:13 Result Notes None recorded. Problems Name Problem SNOMED Code Status Onset Date Resolution Date Notes Provider Name and Address Organization Details Recorded Time Tachycardia 6214131 Active KATERINE DEPINTO null, PA - [facility] 08:49:14 Pernicious anemia 95434742 Active KATERINE DEPINTO null, PA - [facility] 08:49:19 Migraine 79475995 Active NEL GOMEZ-MICHELLE LAZCANO null, PA - [facility] 08:56:59 Problem Notes None recorded. Procedures Surgical History Date Name Laterality Status Provider Name and Address Organization Details Recorded Time open heart surgery completed NELDANIEL NEWSOMEZIEGLER PA - [facility] 12/26/2022 08:57:57 removal of pilonidal cyst completed NELDANIEL GOMEZ-ZIEGLER PA - [facility] 12/26/2022 08:58:12 Imaging Results None recorded. Procedure Notes None recorded. Medical Equipment None Reported. Allergies Allergen ID Allergen Name Allergen Category Reaction Reaction Severity Criticality Documentation Date Start Date Code Code System Note Provider Name and Address Organization Details Recorded Time 465269 Substance with sulfonami de structure and antibacte rial mechanism of action (substanc e) medicatio n other Not available Not available 12/26/2022 46028 8003 SNOMED NEL ABURTO RA null, PA - [facility] 08:55:56 941825 topiramat e medicatio n rash Not available Not available 12/26/2022 39305 RxNorm GONZALO Joiner RA - [facility] [...] Pulse oximetry Heart rate Body temperature Systolic And Diastolic Provider Name and Address Organization Details Last Updated DateTime 3 175.26 cm 25.8 kg/m2 18644.6 6 g 17 /min 100 % 100 % 95 /min 97.2 [degF] 107/70 mm[Hg] NEL ABURTO RA PA - [facility] 3 08:59:51 Date Recorded Body height Body mass index (BMI) Body weight Respiratory rate Body temperature Oxygen saturation Oxygen saturation in Arterial blood by Pulse oximetry Heart rate Systolic And Diastolic Provider Name and Address Organization Details Last Updated DateTime 3 175.26 cm 26.6 kg/m2 17009.6 3 g 18 /min 97.8 [degF] 97 % 97 % 92 /min 111/76 mm[Hg] KATERINE KIMBALL PA - [facility] 3 08:51:18 Social History Question Answer Notes LastModified by Mozido Details LastModified Time Tobacco Smoking Status Never Smoker NEL proctor PA - [facility] 12/26/2022 08:57:41 Have You Had A Flu Shot This Season? Yes Information not available 11/05/2023 If No, Would You Like A Flu Shot Today? A/P Information not available 11/05/2023 Have You Had Direct Contact, Or Contact During Intimacy, With Monkeypox Rash, Scabs, Or Body Fluids From A Person With Monkeypox? No Information not available 12/26/2022 Have You Recently Traveled Abroad? No Information not available 12/26/2022 Are You Currently In School? No Information not available 11/05/2023 Sex: Unknown Functional Status Question Answer Note LastModified by Mozido Details LastModified Time How many times per week do you consume alcohol? Less than 1 time per week Information not available 11/05/2023 Do you use any illicit or recreational drugs? No Information not available 12/26/2022 Do you or have you ever used any other forms of tobacco or nicotine? No Information not available 12/26/2022 What is your level of alcohol consumption? Occasional Information not available 12/26/2022 Are you currently employed? Yes Information not available 11/05/2023 Mental Status None recorded. Family History Relationship [...] null, PA - [facility] 12/26/2022 08:55:00 OPV, trivalent 5 completed NEL GOMEZ-ZIEGLER null, PA - [facility] 12/26/2022 08:55:00 OPV, trivalent 5 completed NEL GOMEZ-ZIEGLER null, PA - [facility] 12/26/2022 08:55:00 OPV, trivalent 6 completed NEL GOMEZ-ZIEGLER null, PA - [facility] 12/26/2022 08:55:00 OPV, trivalent 5 completed NEL GOMEZ-ZIEGLER null, PA - [...] PA - [facility] 12/26/2022 08:55:00 Novel [id number], preservative-free 0 completed NEL GOMEZ-ZIEGLER null, PA [...] SNOMED-CT Code Diagnosis ICD10 Code Diagnosis Note [id number] [address] [facility], [place] [address] 02/27/2022 08:55:38 02/27/2022 10:04:35 [id number] [address] [facility], [place] [address] 06/24/2020 13:12:00 06/24/2020 14:11:50 [id number] [address] [place] [address] 01/10/2022 09:19:54 01/10/2022 10:12:28 [id number] [address] [place] [address] 01/28/2021 08:33:58 01/28/2021 09:20:34 [id number] [address] [place] [address] 02/07/2021 08:08:43 02/07/2021 09:44:20 [id number] [address] [place] [address] 05/16/2020 19:04:51 05/16/2020 19:51:35 [id number] [address] [place] [address] 08/16/2018 12:19:29 08/16/2018 14:34:38 [id number] BA MIMS MD [address] [place] [address] 12/26/2022 08:36:25 12/26/2022 09:38:19 Chronic migraine without aura [id number] 53002 G43.709 [id number] Mili Bobby, PUJA [address] [facility] [address] [facility] [place] [address] 11/05/2023 08:17:12 11/05/2023 09:40:45 Upper respiratory infection 25617734 J06.9 1. Take Ibuprofen or Tylenol if [...] . Severe Headache Thank you for using [facility] today, please feel free to contact our office if you have any questions or concerns. Acute left otitis media [id number] H66.92 An ear infection may start with [...] De La Vega Member ID Guarantor Name 11/22/2023 1 CAITLIN (PPO) [id number] Tammy Naqvi [id number] Tammy Naqvi Notes Date Note Type Note Provider Name and Address Organization Details Recorded Time 3 text/html Ear Pain Brief HPIReported bypatient.Location:[facility] Onset/Timing:new onset; started 2days ago [...] BA MIMS MD [address] [place], [address], PA - [facility] 12/26/2022 09:42:05 3 [...] Mili Rosales NP [address] [place], [address], PA - [facility] 11/22/2023 15:16:33 OBGyn Episode No OBEpisode recorded.
--- OUTSIDE RECORDS SUMMARY | 2025-06-20 09:58 | XMS_ITS | Encounter Summary ---
Author Organization [facility] Address [address] [place] [address] Care Team Providers Care Technical Publications Manager Name Role Phone Moreno Barron MD Primary Care Provider [phone] Reason for Visit * Reason Onset Date Comments medication problems 05/28/2016 Encounter Details Date Type Department Care Team Description 05/28/2016 Telephone Adult Medicine [address] [address] Moreno Barron MD [address] [place] [address] medication problems Social History Tobacco Use Types Packs/Day Years Used Date Smoking Tobacco: Never Smokeless Tobacco: Never Alcohol Use Standard Drinks/Week Comments No 0 (1 standard drink = 0.6 oz pur e alcohol) Sex Assigned at Date Recorded Female 09/25/2022 6:07 PM E DT Job Start Date Occupation Industry Not on file Not on file Not on file documented as of this encounter Miscellaneous Notes * Telephone Encounter - Esther Cain PA-C - 05/28/2016 3:28 PM EDT Rx sent again. * Telephone Encounter - Laureen Can M.A. - 05/28/2016 1:40 PM EDT Spoke with the pharmacy the Rx for naprosyn sent on 05/23/16 was not received. Please resend * Telephone Encounter - Sharmin Cain - 05/28/2016 1:10 PM EDT Who is calling? The patient Name of the medication: Naproxen 375 MG Tab EC What is the specific problem or interaction? Pharmacy has not received, please refax and call patient once Rx has been re faxed. If the patient is having a problem with taking the med - how long has the problem been going on? N/A documented in this encounter Plan of Treatment Not on file documented as of this encounter Visit Diagnoses Not on filedocumented in this encounter Care Teams Technical Publications Manager Relationship Specialty Start Date End Date Moreno Barron MD [address] [place] [address] PCP - General Internal Medicine 08/16/15 documented as of this encounter
--- OUTSIDE RECORDS SUMMARY | 2025-06-20 09:58 | XMS_ITS | Clinical Summary ---
Author Organization [facility] Address [address] [place] [address] Phone Care Team Providers Care Rolling Machine Operator Automatic Name Role Phone Ca Ordoñez Primary Care Provider [phone] Ca Ordoñez Unavailable [phone] Bailey Holt MD Unavailable Reynold Draper MD Unavailable [phone] Allergies Active Allergy Reactions Criticality Noted Date Comments Atomoxetine Other 02/01/2025 Hearing loss Pollen Extracts 12/29/2024 Sulfa (Sulfonamide Antibiotics) 02/03/2024 Reaction Type from PowerChart: Allergy; Topiramate Itching,Rash 09/28/2017 Other Reaction(s): Topiramate Reaction Type from PowerChart: Allergy; 02/03/2024 12:24 - rash Medications citalopram (CeleXA) 20 mg tablet Take 30 mg by mouth 1 time each day. 02/03/2024 Active drospirenone-e. estradioL-lm.FA (Beyaz) 3-0.02-0.451 mg (24) (4) tablet tab, PO, daily, Entered: 02/03/24 12:44:00 EST 02/03/2024 Active loratadine (Claritin) 10 mg tablet Take 10 mg by mouth if needed for allergies. 02/03/2024 Active rimegepant (Nurtec ODT) 75 mg tablet,disinteg rating mg, tab, PO, 1time, Special Instructions: Taken as needed, Entered: 02/03/24 12:56:00 EST 02/03/2024 Active cyanocobalamin 1,000 mcg/mL injection Inject 1,000 mcg into a muscle as directed every 30 days. 02/03/2024 Active propranolol HCl (PROPRANOLOL, BULK, MISC) Take 60 mg by mouth 1 time each day. 02/03/2024 Active levothyroxine 25 mcg tablet Take 25 mcg by mouth 1 time each day. 07/15/2023 Active Emgality Pen 120 mg/mL auto-injector Inject 240 mg under the skin every 30 days. Active cholecalciferol 5,000 Units tablet Take 125 mcg by mouth 1 time each day. 02/03/2024 Active minoxidil 2.5 mg tablet Take 0.5 tablets by mouth 1 time each day. 11/10/2024 Active traZODone 50 mg tablet Take 50 mg by mouth as needed at bedtime for sleep. Active Active Problems Problem Noted Date Diagnosed Date Migraine 02/01/2025 Pernicious anemia 02/01/2025 Seasonal allergies 05/10/2020 PMS (premenstrual syndrome) 09/14/2015 Social History Tobacco Use Types Packs/Day Years Used Date Smoking Tobacco: Never Assessed Comments Unknown Sex and Gender Information Value Date Recorded Sex Assigned at Not on file Legal Sex Female 3:52 PM EDT Gender Identity Not on file Sexual Orientation Not on file Last Filed Vital Signs Vital Sign Reading Time Taken Comments Blood Pressure 108/65 02/01/2025 10:31 AM EST Pulse 75 02/01/2025 10:31 AM EST Temperature - - Respiratory Rate - - Oxygen Saturation 100% 02/01/2025 10:31 AM EST Inhaled Oxygen Concentration - - Weight 71.4 kg (157 lb 6.5 oz) 02/01/2025 10:31 AM EST Height 174.4 cm (5' 8.66 ) 02/01/2025 10:[address] Body Mass Index 23.48 02/01/2025 10:31 AM EST Plan of Treatment Health Maintenance Due Date Last Done Comments HIV Screening 1995 Hepatitis C Screening 2013 DTaP/Tdap/Td Vaccines (8 - Td or Tdap) 07/27/2027 07/27/2017, 03/16/2007, 08/11/2000, Additional history exists Hepatitis B Vaccines Completed 1995, 1995, 1995 HIB Vaccines Completed 05/19/1996, 05/01, 1995, Additional history exists IPV Vaccines Completed 08/11/2000, 05/01, 05/19/1996, Additional history exists MMR Vaccines Completed 08/11/2000, 05/19/1996 HPV Vaccines Completed 11/26/2007, 04/30, 03/16/2007 Meningococcal Vaccine Aged Out 01/07/2011 No gonzalez taylor eligible based on patient's age to complete this topic Varicella Vaccines Completed 01/07/2011, 05/17/1999 COVID-19 Vaccine Completed 10/08/2024, 07/2023, 10/11/2022, Additional history exists Influenza Vaccine Completed 10/08/2024, , 11/26/2022, Additional history exists Hepatitis A Vaccines Aged [...] on patient's age to complete this topic Rotavirus Vaccines Aged Out No longer eligible based on patient's age to complete this topic Insurance [facility] - OOS Care Teams Rolling Machine Operator Automatic Relationship Specialty Start Date End Date aC Ordoñez [address] [place] [address] PCP - General 10/07/23 Ca Ordoñez [address] [place] [address] PCP - Clinical PCP 10/07/23 Bailey Holt MD [address] [place] [address] PCP - Insurance PCP 02/24/06 Reynold Draper MD [address] [place] [address] Tank Truck Mechanic 04/30/24
--- OUTSIDE RECORDS SUMMARY | 2025-06-20 09:58 | XMS_ITS | Clinical Summary ---
Author Organization [facility] Address [address] [place] [address] Phone Care Team Providers Care Pantograph Transferrer Name Role Phone Moreno Barron MD Primary Care Provider [phone] Allergies Active Allergy Reactions Criticality Noted Date [...] EDT Office Visit Obstetrics & Gynecology - [address] [address] Sanaz Posadas CNM Encounter for gynecological examination without abnormal finding (Primary Dx) from Last 3 Months Immunizations Name Administration Dates Next Due DTP 05/19/1996, 5,1995,03/26 DTaP (Infanrix) 6wks to less than 7yo 08/11/2000 CFkY-[id number]-APB (Pentacel) 2mo to less than 5yo 05/19/1996,1995,1995,03/26 [...] SURGERY 1999 PROCEDURE: HISTORICAL HEART SURGERY(ASD,VSD,VALVES); COMMENT: [facility] OTHER SURGICAL HISTORY 2014 N/A PROCEDURE: [place] EXCISION PILONIDAL CYST/SINUS COMPLICATED Medical History Medical [...] Due Date Last Done Comments HIV Screening 11/08/2022 Hepatitis C Screening 11/08/2022 Social Influencers of Health Screening 11/08/2022 Depression Screening 11/30/2024 Influenza Vaccine (#1) 2025 , 09/07/2023, 11/26/2022, [...] * Cervical Cancer Screening: HPV (03/29/2024) Pathologist [facility] Cervical Cancer Screening: HPV Negative, Abstracted Historical [...] Recently Relevant to Health Maintenance Insurance [facility] Care Teams Pantograph Transferrer Relationship Specialty Start Date End Date Moreno Barron MD [address] [place] [id number] PCP - General Internal Medicine 08/16/15
== END 2025-06-20 10:35 | disposition home or self-care (01) ==
LOC: HO.HSMS 09:25
PROVIDERS: PCP Internal Medicine; Visit Provider Nurse Practitioner Family
DX: G62.89 Other specified polyneuropathies (principal); R76.8 Other specified abnormal immunological findings in serum; Z84.0 Family history of diseases of the skin and subcutaneous tissue; G43.009 Migraine without aura, not intractable, without status migrainosus; M26.609 Unspecified temporomandibular joint disorder, unspecified side; F90.2 Attention-deficit hyperactivity disorder, combined type
CPT/HCPCS: 99214

== ENCOUNTER 2025-06-23 08:25 | Outpatient (REF) | payer BC, SELFPAY ==
--- OUTSIDE RECORDS SUMMARY | 2025-06-23 08:36 | XMS_ITS ---
[facility] Care Team Organization Name Specialty Phone Email Start Date End Da te [facility] Jeanette Rae APRN Primary Care 10/07/2022 07/18/2024
--- OUTSIDE RECORDS SUMMARY | 2025-06-23 08:36 | XMS_ITS ---
Triglycerides 118 0 - 150 mg/dL Cholesterol 174 0 - 200 mg/dL HDL 67 >=40 mg/dL LDL Cholesterol 84 0 - 100 mg/dL Blood Venous blood specimen / Unknown us Historical Provider LAB BLOOD ORDERABLES Amy arndt Result from Last 3 Months or Most Recently Relevant to Health Maintenance Insurance [employer] Care Teams Cosmetics Machine Operator Relationship Specialty Start Date End Date Moreno Barron MD [address] [place] [id number] PCP - General Internal Medicine 08/16/15 Clinical Summary Created on: June 23, 2025 Tammy Naqvi : 1995 Sex: Female Author Organization [facility] Address [address] [place] [address] Phone Care Team Providers Care Cosmetics Machine Operator Name Role Phone Moreno Barron MD Primary Care Provider [phone] Allergies Active Allergy Reactions Criticality Noted Date [...] EDT Office Visit Obstetrics & Gynecology - [address] [address] Sanaz Posadas CNM Encounter for gynecological examination without abnormal finding (Primary Dx) from Last 3 Months Immunizations Name Administration Dates Next Due DTP 05/19/1996, 5,1995,03/26 DTaP (Infanrix) 6wks to less than 7yo 08/11/2000 EAeC-PON-GXO (Pentacel) 2mo to less than 5yo 05/19/1996,1995,1995,03/26 [...] SURGERY 1999 PROCEDURE: HISTORICAL HEART SURGERY(ASD,VSD,VALVES); COMMENT: [facility] OTHER SURGICAL HISTORY 2014 N/A PROCEDURE: [place] EXCISION PILONIDAL CYST/SINUS COMPLICATED Medical History Medical [...] Results * Cervical Cancer Screening: HPV (03/29/2024) Cervical Cancer Screening: HPV Negative, Abstracted us Historical Provider MD HEALTH MAINTENANCE Final Result * Lipid panel (07/05/2021) LDL/HDL Ratio 3 0 - 4
--- OUTSIDE RECORDS SUMMARY | 2025-06-23 08:37 | XMS_ITS | Clinical Summary ---
Author Organization [facility] Address [address] [place] [address] Phone Care Team Providers Care Envelope Adjuster Name Role Phone Ca Ordoñez Primary Care Provider Ca Ordoñez Unavailable [phone] Bailey Holt MD Unavailable [phone] Reynold Draper MD Unavailable [phone] Allergies Active Allergy Reactions Criticality Noted Date [...] HIV Screening 1995 Hepatitis C Screening 2013 Influenza Vaccine (#1) 2025 , 09/07/2023, 11/26/2022, Additional history exists DTaP/Tdap/Td Vaccines (8 - Td or Tdap) [...] patient's age to complete this topic Insurance [facility] [place] [address] O Care Teams Envelope Adjuster Relationship Specialty Start Date End Date Ca Ordoñez [address] [place] [address] PCP - General 10/07/23 Ca Ordoñez [address] [place] [address] PCP - Clinical PCP 10/07/23 Bailey Holt MD [address] [place] [id number] PCP - Insurance PCP 02/24/06 Reynold Draper MD [address] [place] [id number] Nut And Bolt Assembler 04/30/24
--- OUTSIDE RECORDS SUMMARY | 2025-06-23 08:37 | XMS_ITS | Data Portability ---
Author Organization [place] - [facility], Allergy Address [address] [address] Care Team Providers Care Oil Rig Roughneck Name Role Phone ASHLIE VIDHI Primary Care [...] e 1 % topical solution [address] [id number] [address] [place], [address], 4 15:58:30 clotrimazol e-betametha sone 1 %-0.05 % topical cream [address] [id number] [address] [place], [address], 4 15:58:29 Patient TargetsNo targets recorded. Patient InstructionsNo instructions recorded. Reason for Referral None Reported. Problems Name Problem SNOMED Code Status Onset Date Resolution Date Notes Provider Name and Address Organization Details Recorded Time Bleeding from nose 295285931 Active 2019 Epistaxis ; Note: Date Diagnosed : 04/04/2020 2:56 PM (R04.0) Not Available [facility] 4 03:13:37 Allergic rhinitis 56110607 Active 2020 Other allergic rhinitis; Note: Date Diagnosed : 03/19/2021 11:28 AM (J30.89) Not Available [facility] 4 03:13:37 Diffuse otitis externa 09946279 Active 2023 Emy proctor [place] - [facility] 4 15:55:37 Itching of skin 646768266 Active 2023 Emy proctor [place] - [facility] 4 12:04:54 Seasonal allergic rhinitis 675262428 Active 2023 DEBORAH BRISENO MD [address] [place] [address], [place], [address] , [facility] - [facility] 4 08:57:54 Problem Notes None recorded. Medical Equipment None Reported. Allergies Allergen ID Allergen Name Allergen Category Reaction Reaction Severity Criticality Documentation Date Start Date Code Code System Note Provider Name and Address Organization Details Recorded Time 261003 aspirin medicatio n other Not available Not available 04/12/2024 1191 RxNorm React ion: unkno wn, unspe cifie d;; Not Available [facility] 4 01:19:09 635550 Substance with sulfonami de structure and antibacte rial mechanism of action (substanc e) medicatio n other Not available Not available 04/12/2024 38194 8003 SNOMED React ion: unkno wn, unspe cifie d;; Not Available [facility] 4 01:19:10 Medications Name Sig Start Date Stop Date Status Note LastModified by Organization Details LastModified Time amoxicill in 500 mg capsule TAKE 1 CAPSULE BY MOUTH TWICE A DAY active Not Available Not Available No t Available acetic acid 2 % ear solution 03/19 completed Medicati on ID: [id number] B rand Name: acetic acid Sen d Method: E-Prescr ibed Sub s Allowed: subs OK Medic ationGen ericName : acetic acid Not Available Not Available Not Available citalopra m 40 mg tablet 1 tablet by mouth 2020 active Medicati on ID: [id number] B rand Name: citalopr am Send Method: [...] dental gel 03/19 completed Medicati on ID: [id number] B rand Name: SF Send Method: E-Prescr ibed Sub s Allowed: subs OK Medic ationGen ericName : SF Not Available Not Available Not Available amoxicill in 500 mg tablet TAKE 1 TABLET BY MOUTH EVERY 6 HOURS UNTIL GONE active Not Available Not Available No t Available ofloxacin 0.3 % ear drops 04/24 completed Medicati on ID: [id number] B rand Name: ofloxaci n Send Method: [...] mg tablet 03/19 completed Medicati on ID: [id number] D uration Value: 90 Brand Name: paroxeti [...] mg tablet 03/19 completed Medicati on ID: [id number] D uration Value: 30 Brand Name: ibuprofe [...] ne propionat e 50 mcg/actua tion nasal spray,gorna pension TAKE 1 SPRAYS (INTRANA KENDALL) 2 [...] mg tablet 03/19 completed Medicati on ID: [id number] D uration Value: 28 Brand Name: Alyssa [...] as needed 2023 active Medicati on ID: [id number] D uration Value: 1 Brand Name: EpiPen 2-Vasiliy Se nd Method: E-Prescr ibed Sub s Allowed: subs OK Medic ationGen ericName : EpiPen 2-Vasiliy Not Available Not Available Not Available Emgality Pen 120 mg/mL subcutane ous pen injector PLEASE SEE ATTACHED FOR DETAILED DIRECTIO NS active Not Available Not Available No t Available Flucelvax Quad 03/19 completed Medicati on ID: [id number] D uration Value: 1 Brand Name: Flucelva [...] Updated DateTime 06/07/2024 175.26 cm 25.8 kg/m2 76199.66 g Nancy Mays [place] - [facility] 06/07/2024 15:27:01 Date Recorded Body height Body mass index (BMI) Body weight Provider Name and Address Organization Details Last Updated DateTime 07/07/2024 175.26 cm 25.8 kg/m2 37457.66 g Nancy Mays [place] - [facility] 07/07/2024 11:08:29 Date Recorded Body height Body mass index (BMI) Body weight Provider Name and Address Organization Details Last Updated DateTime 09/19/2024 175.26 cm 24.4 kg/m2 52598.74 g Elif Nieves [place] - [facility] 09/19/2024 08:42:20 Social History None recorded. Functional [...] Note [id number] EMY GAMBLE PA-C [facility] on [address] [place] [address], [place] [address] 06/07/2024 15:03:57 06/07/2024 15:48:34 Diffuse otitis externa 74807398 H60.311 [id number] EMY GAMBLE PA-C [facility] on [address] [place] [address], [place] [address] 07/07/2024 10:59:06 07/07/2024 13:00:56 Itching of skin 064021022 L29.9 [id number] DEBORAH BRISENO MD [facility] [address] [address] 09/19/2024 08:39:00 09/19/2024 08:57:42 Seasonal allergic rhinitis 562460165 J30.2 The patient is benefiting from immunother [...] Sequence Insurance Name Policy Number Policy De Al Vega Covered Member ID De La Vega Member ID Guarantor Name 10/04/2024 1 CAITLIN (PPO) [id number] Tammy Naqvi [id number] Tammy Naqvi Notes Date Note Type Note Provider Name and Address Organization Details Recorded Time 06/07/2024 text/html ROS as noted in the HPI 29 year old female, patient of for allergic rhinitis on immunotherapy. She is here today with concerns for a right ear infection. Reports chronic difficulties with ear itching and irritation. She has dermatitis that affects her scalp and ears. She has been having right sided drainage and discomfort for two days now. Also undergoing intensive treatment for TMJ. HARMAN LLAMAS MD [address], [address], [facility] - [facility] 06/08/2024 07:44:48 07/07/2024 text/html ROS as noted in the HPI 29 year old female with a history of dermatitis presents today for follow up for bilateral fungal OE. She used the clotrimazole drops and Lotrisone cream which helped. Then she used the vinegar and this made her ear flaky again. Emy proctor [place] - [facility] 07/07/2024 12:08:31 09/19/2024 text/html ROS as noted in the [facility] allergiesShe has been receiving SLIT since 06/19. She notes improvement in her allergy symptoms in general. Did have a sinus infection which required prednisone a couple weeks ago. Has some itching under her tongue when she administers the allergy drops but no swelling or systemic reactions. Has noted sensitivity to strawberries and some nuts. DEBORAH BRISENO MD [address] [place] [address], [phone], [facility] - [facility] 09/19/2024 08:59:36 OBGyn Episode No OBEpisode recorded.
[2025-06-23 09:55] LABS: Hemoglobin A1C 113.8864 umol/L; Total Hemoglobin (HGBA1C) 3259.1741 umol/L
[2025-06-23 10:18] LABS: Iron 115 mcg/dL (30-160); Percent Iron Saturation 39 % (15-50); Total Iron Binding Capacity 295 mcg/dL (228-428); Unsaturated Iron Binding 180 ug/dL
[2025-06-23 10:34] LABS: Ferritin 50 ng/mL (10-122); HBS Num1 15.41 mIU/mL (0-7.99); HBc Num1 0.12 S/CO (0.00-0.79); HBsAGNum1 0.42 S/CO (0.00-0.99); HIV Num 1 0.05 S/CO (0.00-0.99); Hepatitis A Antibody IgM 0.16 Index (0-0.79); Hepatitis B Surface Antigen Negative (Negative); ~HepC Num1 0.17 S/CO (0.00-0.79); ~Hepatitis A Antibody IgM Nonreactive (Nonreactive); ~Hepatitis B Surface Antibody REACTIVE (Nonreactive); ~Hepatitis C Antibody Nonreactive (Nonreactive)
[2025-06-26 20:48] LABS: Lyme Abs Screen <0.90 index
[2025-06-26 22:39] LABS: Prot Elec - Albumin 3.9 g/dL (3.8-4.8); Prot Elec - Alpha1 0.3 g/dL (0.2-0.3); Prot Elec - Alpha2 0.6 g/dL (0.5-0.9); Prot Elec - Beta 1 0.4 g/dL (0.4-0.6); Prot Elec - Beta 2 0.4 g/dL (0.2-0.5); Prot Elec - Gamma 1.6 g/dL (0.8-1.7); Prot Elec - Total Protein 7.2 g/dL (6.1-8.1)
[2025-06-26 23:14] LABS: Proteinase 3 PR3 Antibodies <1.0 AI
[2025-06-30 11:58] LABS: Porphyrins, Total Plasma 0.5 mcg/L (1.0-5.6)
== END 2025-06-23 08:26 | disposition home or self-care (01) ==
LOC: HO.LAB 08:25
PROVIDERS: PCP Internal Medicine; Visit Provider Nurse Practitioner Family
DX: D51.0 Vitamin B12 deficiency anemia due to intrinsic factor deficiency (principal); R76.8 Other specified abnormal immunological findings in serum; M25.50 Pain in unspecified joint; G62.89 Other specified polyneuropathies; Z84.0 Family history of diseases of the skin and subcutaneous tissue; L21.9 Seborrheic dermatitis, unspecified; D64.9 Anemia, unspecified; Z13.1 Encounter for screening for diabetes mellitus
CPT/HCPCS: 82542; 82595; 82728; 83036; 83090; 83540; 83921; 84165; 84207; 84425; 85652; 86021; 86140; 86617; 86618; 86704; 86706; 86709; 86803; 87340; 87389

== ENCOUNTER 2025-06-28 10:50 | Outpatient (REF) | payer BC, SELFPAY ==
--- OUTSIDE RECORDS SUMMARY | 2025-06-30 08:46 | XMS_ITS | Clinical Summary ---
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
--- OUTSIDE RECORDS SUMMARY | 2025-06-30 08:46 | XMS_ITS | Clinical Summary ---
Author Organization [facility] Address [address] [place] [address] Phone Care Team Providers Care Assurance Services Manager Health Care Name Role Phone Moreno Barron MD Primary Care Provider [phone] Allergies Active Allergy Reactions Criticality Noted Date [...] Office Visit Obstetrics & Gynecology - [address] [address] Sanaz Posadas CNM Encounter for gynecological examination without abnormal finding (Primary Dx) from Last 3 Months Immunizations Name Administration Dates Next Due DTP 05/19/1996, 5,1995,03/26 DTaP (Infanrix) 6wks to less than 7yo 08/11/2000 RPuS-[id number]-CPU (Pentacel) 2mo to less than 5yo 05/19/1996,1995,1995,03/26 [...] SURGERY 1999 PROCEDURE: HISTORICAL HEART SURGERY(ASD,VSD,VALVES); COMMENT: [facility] OTHER SURGICAL HISTORY 2014 N/A PROCEDURE: OK [...] * Cervical Cancer Screening: HPV (03/29/2024) Pathologist [facility] Cervical Cancer Screening: HPV Negative, Abstracted [...] Most Recently Relevant to Health Maintenance Insurance [facility] ([facility]) Care Teams Assurance Services Manager Health Care Relationship Specialty Start Date End Date Moreno Barron MD [address] [place] [phone] PCP - General Internal Medicine 08/16/15
[2025-07-05 04:23] LABS: Arsenic, 24H Urine <10 mcg/L (<=80); Cadmium, 24H Urine <0.5 mcg/L (<=5.0); Lead, 24H Urine <10 mcg/L (<80); Mercury, 24H Urine <4 mcg/L (<=20)
== END 2025-06-28 10:51 | disposition home or self-care (01) ==
LOC: HO.LNP 10:50
PROVIDERS: Visit Provider Nurse Practitioner Family
DX: D51.0 Vitamin B12 deficiency anemia due to intrinsic factor deficiency (principal); R76.8 Other specified abnormal immunological findings in serum; M25.50 Pain in unspecified joint; G62.89 Other specified polyneuropathies; L21.9 Seborrheic dermatitis, unspecified; Z84.0 Family history of diseases of the skin and subcutaneous tissue
CPT/HCPCS: 82175; 82300; 83655; 83825

== ENCOUNTER 2025-06-29 14:00 | Outpatient (REF) | payer BC, SELFPAY ==
[2025-07-04 12:08] LABS: PEU-PROT/CRE Ratio mg/mg 0.055 (<0.150); PEU24-Albumin Urine 100 %; PEU24-Alpha 1 Globulin 0 %; PEU24-Alpha 2 Globulin 0 %; PEU24-Beta Globulin 0 %; PEU24-Gamma Globulin 0 %; Total Protein/Creat Ratio 24h 55 mg/g creat (<150)
[2025-07-07 02:13] LABS: Coproporphyrin I, 24Hr 22.0 mcg/24 h (7.1-48.7); Coproporphyrin III, 24Hr 3.4 mcg/24 h (11.0-148.5); Heptacarboxylporphyrin, 24U 2.2 mcg/24 h (< OR = 3.3); Hexacarboxylporphryin, 24U 0.8 mcg/24 h (< OR = 10.0); Pentacarboxylporphrin, 24U 1.3 mcg/24 h (< OR = 4.6); Porphyrins, Total 24 Hr 49.5 mcg/24 h (35.0-210.7); Total Volume, Porphyrins 24Hr 1200 mL; Uroporphyrin I, 24 Hr 15.8 mcg/24 h (4.1-22.4); Uroporphyrin III, 24Hr 4.0 mcg/24 h (0.7-7.4)
== END 2025-06-29 14:01 | disposition home or self-care (01) ==
LOC: HO.LNP 14:00
PROVIDERS: Visit Provider Nurse Practitioner Family
DX: D51.0 Vitamin B12 deficiency anemia due to intrinsic factor deficiency (principal); R76.8 Other specified abnormal immunological findings in serum; M25.50 Pain in unspecified joint; G62.89 Other specified polyneuropathies; L21.9 Seborrheic dermatitis, unspecified; D64.9 Anemia, unspecified; Z84.0 Family history of diseases of the skin and subcutaneous tissue
CPT/HCPCS: 82570; 84120; 84156; 84166

== ENCOUNTER 2025-08-31 08:30 | Outpatient (AMB) | payer BC, SELFPAY ==
[2025-08-31 08:38] VITALS: BP 92/70; PULSE 82; RESP 16; TEMP 36.8; O2SAT 98; BMI 25.7
--- NOTE | 2025-08-31 08:38 | A.OFFPC_ITS ---
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 Required: No Is last menstrual period known: Yes Last menstrual period: 08/15/25 Allergies environmental allergies Allergy (Unknown, Verified 09/06/25 22:45) Unknown house dust Allergy (Unknown, Verified 09/06/25 22:45) Unknown pollen extracts Allergy (Unknown, Verified 09/06/25 22:45) Unknown Sulfa (Sulfonamide Antibiotics) Allergy (Verified 09/06/25 22:45) Unknown topiramate Allergy (Verified 09/06/25 22:45) Unknown atomoxetine Adverse Reaction (Verified 09/06/25 22:45) tinnitus Medication List - Last Reconciled 08/31/25 by Ca Ordoñez MD calcipotriene 0.005% 1 appl topical DAILY cyanocobalamin (vitamin B-12) Inject 1 mL(1000 mcg) intramuscularly once a week for 4 weeks, then monthly thereafter 1 week drospirenone-e.estradiol-lm.FA 3-0.02-0.451 mg (24) (4) (Beyaz (28)) 1 tab PO DAILY duloxetine 40 mg PO BEDTIME galcanezumab-gnlm (Emgality Pen) 120 mg subcut ONCE 30 days hydroxyzine HCl 10 mg PO BEDTIME PRN loratadine (Allergy Relief (loratadine)) 10 mg PO DAILY magnesium oxide 400 mg PO BEDTIME 30 days minoxidil 1.25 mg PO DAILY propranolol ER 60 mg PO BEDTIME 90 days rimegepant (Nurtec ODT) 75 mg orally daily PRN; 30 days syringe with needle (BD Luer-Korey Syringe) As directed to inject vitamin B-12 Tobacco use date assessed: 08/31/25 Dental Screening Dental Screen Date: 08/31/25 Did you have a dental visit in the last 12 months?: Yes Did you have a dental problem in the last 6 months where you did not have access to dental care?: No Was dental information given to patient?: Patient has dentist HPI annual visit HPI Details 30-year-old lady with past medical histo ry mixed axonal demyelinating polyneuropathy, psoriasis, seborrheic dermatitis, pernicious anemia and 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 Up-to-date with her cervical cancer screening, done last year at [facility] with normal results. She has been feeling well, with no complaints at present time. 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 Nonrheumatic tricuspid (valve) insufficiency Partial anomalous pulmonary venous connection Congenital malformation of cardiac septum, unspecified Obstruction of nasal valve Disturbance of sleep Vitamin D deficiency Vitamin B12 deficiency TMJ (temporomandibular joint disorder) Bruxism (teeth grinding) Chronic headaches Allergic rhinitis Hx of epistaxis ADHD VSD (ventricular septal defect) ASD (atrial septal defect) Depression with anxiety Surgical History Hx of atrial septal defect repair Hx of ventricular septal defect repair History of surgical removal of pilonidal cyst Family History Father Mental health disorder HTN (hypertension) Mother HTN (hypertension) IBS (irritable bowel syndrome) Sister Anxiety Depression Social History Housing: House Alcohol intake: current Alcohol intake frequency: a few times a month Patient Tobacco Use Status: Never used Tobacco e-Cigarette/Vaping Use: Never Used Current occupational status: employed Cognitive needs: No Hearing needs: No Vision needs: Yes Female Reproductive History Menstrual Date of last menstrual period: 08/15/25 Questionnaire PHQ-9 Over the last 2 weeks, how often have you been bothered by any of the following problems? 1. Little interest or pleasure in doing things: not at all 2. Feeling down, depressed, or hopeless: not at all 3. Trouble falling or staying asleep, or sleeping too much: several days 4. Feeling tired or having little energy: not at all 5. Poor appetite or overeating: more than half the days 6. Feeling bad about yourself - or that you are a failure or have let yourself or your family down: not at all 7. Trouble concentrating on things, such as reading the newspaper or watching television: not at all 8. Moving or speaking so slowly that other people could have noticed. Or the opposite - being so fidgety or restless that you have been moving around a lot more than usual: not at all 9. Thoughts that you would be better off or of hurting yourself in some way: not at all Total score: 3 Depression Screening Interpretation: Negative Depression Screening Done: Yes Source: Developed by Drs. Aguilar Hicks, Irina Monet, Miller Herrera and colleagues, with an educational samantha from [employer]. Thrive Questionnaire Date Thrive assessed: 03/27/25 I am a: Patient What is your living situation today?: I have a steady place to live Within the past 12 months, did the food you bought not last and you didn't have the money to get more?: Never true Within the past 12 months, did you worry whether your food would run out before you got money to buy more?: Never true Do you have trouble paying for medicines?: No Do you have trouble getting transportation to medical appointments?: No Do you have trouble paying your heating and electricity bill?: No Do you have trouble taking care of your child, family member or friend?: No Do you have trouble with day-to-day activities such as bathing, preparing meals, shopping, managing finances, etc.?: No Are you currently unemployed and looking for a job?: No Are you interested in more education?: No Please select the resources that you would like help with: None Currently or been in a relationship where the following occur: I choose not to answer THRIVE Score: 0 AUDIT C Alcohol Use Questionnaire (AUDIT-C) 1. How often do you have a drink containing alcohol?: Monthly or less 2. How many drinks containing alcohol do you have on a typical day when you are drinking?: 1 or 2 3. How often do you have six or more drinks on one occasion?: Never Total Score: 1 PEDRO-7 AMB Questionnaire PEDRO-7 Date PEDRO - 7 assessed: 03/27/25 Feeling nervous, anxious, or on edge: 1 = Several days Not being able to stop or control worryin = Not at all Worrying too much about different things: 0 = Not at all Trouble relaxin = Not at all Being so restless that it is hard to sit still: 0 = Not at all Becoming easily annoyed or irritable: 0 = Not at all Feeling afraid as if something awful might happen: 0 = Not at all Total PEDRO-7 score (0-4 normal; 5-9 mild; 10-14 moderate; 15-21 severe): 1 Source: Developed by Drs. Aguilar Hicks, Irina Monet, Miller Herrera and colleagues, with an educational samantha from [employer]. Review of Systems Const Denies fever(s), Denies headache(s), Denies poor appetite and Denies weakness Eyes Details: Goes to [address] [place] [address] optical Reports no additional complaints ENT Details: Dental prophylaxis every six-months, goes to [facility] in [place] once a year, wears nightguard Denies dizziness and Denies headache(s) Card Denies chest pain at rest, Denies chest pain with activity, Denies lightheadedness, Denies palpitations and Denies dyspnea Resp Denies chest congestion and Denies dyspnea GI Reports no additional complaints Reports no additional complaints Musc Denies abnormal gait Skin/Breast Details: Goes to [facility] Denies breast pain and Denies breast mass Neuro Denies abnormal gait, Denies dizziness, Denies headache(s), Denies lack of coordination, Denies Sensory deficit (Neuro) and Denies weakness Psych Reports no additional complaints Endo Denies palpitations Isaiah/Lymph Reports no additional complaints Aller/Immun Reports seasonal rhinorrhea Physical exam (Primary Care) Vital Signs: Last Vital Signs Temp 98.2 F 08/31/25 08:38 Pulse 82 08/31/25 08:38 Resp 16 08/31/25 08:38 BP 92/70 08/31/25 08:38 Pulse Ox 98 08/31/25 08:38 Oxygen Delivery Method Room Air 08/31/25 08:38 BMI result Body Mass Index 25.7 Tobacco/Smoking Status: Tobacco use Status Tobacco use date assessed 08/31/25 08/31/25 08:40 Patient Tobacco Use Status Never used Tobacco 08/31/25 08:40 e-Cigarette/Vaping Use Never Used 08/31/25 08:40 PHQ-9: PHQ-9 Score PHQ-9: Total score 3 09/06/25 23:06 Depression Screening Interpretation: Negative Thrive Assessment: Date of Thrive Assessment Date Thrive assessed 03/27/25 08/31/25 08:40 Currently or been in a relationship where the following occur: I choose not to answer HENMT Face and sinus: Yes face symmetric Mouth: Normal oral and palatal mucosa present and moist mucous membranes Eyes General: appearance normal, both eyes and all related structures Neck Neck: Yes full ROM, Yes no lymphadenopathy and Yes supple Thyroid: Thyroid normal (Nonpalpable) Chest Chest palpation & inspection: normal inspection of the chest Breast/axilla palpation: normal palpation of the breasts Resp Auscultation: clear to auscultation bilaterally Cardio Other: S1-S2 present regular rate and rhythm GI Palpation (GI): Soft to palpation, nontender, no guarding and no masses Auscultation: normal bowel sounds General: Yes no CVA tenderness Back/Spine/Pelvis Back: no CVA tenderness and No back tenderness Skin General skin exam: no rashes or lesions noted Neuro Sensory Exam: No Sensory deficit (Neuro) Extrem General: Yes full ROM, Yes no calf tenderness, Yes normal gait and No edema Psych Appearance: grossly normal Mental Status: mental status grossly normal Speech and movement: Normal speech and movement present Affect: normal affect Results Reviewed Results Reviewed: Laboratory Tests 03/27/25 08:40 WBC 3.4 L Hgb 12.2 Hct 35.2 L Plt Count 316 Name: Tammy Naqvi Age/Sex: 30/F : 1995 Unit#: [id number] Attend Dr: Kassandra Penaloza Re06/23/25 Status: DEP REF Location[facility] Disch: SPEC : [id number] SU: 06/23/25 STATUS: COMP REQ : [id number] RECD: 06/23/[address]: Kassandra Penaloza COMP: 06/23/25 ENTERED: 06/23/25 [facility] DR: Ca Ordoñez MD ORDERED: Hgb A1c Test Result Flag Reference A1c % 5.3 <6.0 % Hemoglobin A1C Reference Range Adults: 4.8 - 6.0 % Non diabetic: < 6.0 % Goal: < 7.0 % Additional Action Suggested: > 8.0 % Note: Hemoglobin A1c results are invalid for patients with abnormal amounts of HbF. Blood transfusions may impact the HbA1c concentration in the patient sample. Est. Avg. Gluc 105 mg/dL eAG = Estimated average glucose which is %A1C expressed as average glucose, using the formula of the D9L-Hnjwger Average Glucose study (ADAG), Diabetes Care, Vol.31,#8, 2007 Name: Tammy Naqvi Age/Sex: 30/F : 1995 Unit#: [id number] Attend Dr: Ca Ordoñez MD Re03/27/25 Status: DEP REF Location: [facility] Disch: SPEC : [id number] SU: 03/27/25 STATUS: COMP REQ : [id number] RECD: 03/27/[address] [facility] [address]: Ca Ordoñez MD COMP: 03/27/25 ENTERED: 03/27/25 [facility] DR: Yecenia Wills FISHER SEAL- ORDERED: MG, Lipid Panel, Vitamin D 25-OH Test Result Flag Reference Magnesium 2.1 1.6-2.6 mg/dL Triglyceride 137 <150 mg/dL Desirable Triglyceride: less than 150 mg/dL Borderline High Triglyceride 150-199 mg/dL High Triglyceride: 200-499 mg/dL Very High Triglyceride: greater than or equal to 5OO mg/dL Cholesterol 199 <200 mg/dL Desirable Cholesterol: less than 200 mg/dL Borderline High Cholesterol: 200-239 mg/dL High Cholesterol: greater than 239 mg/dL LDL Calculated 105 H <100 mg/dL Desirable LDL: less than 100 mg/dL Near Optimal/Above Optimal LDL: 110-129 mg/dL Borderline High LDL: 130-159 mg/dL High LDL: 160-189 mg/dL Very High LDL: greater than or equal to 190 mg/dL HDL 67 >40 mg/dL Desirable HDL: greater than 40 mg/dL Note: This HDL assay may give artificially low results in patients with liver disease. Vitamin D 25-OH 67.9 >30 ng/mL Health Based Reference Values* < 20 ng/mL Deficient 20-30 ng/mL Insufficient > 30 ng/mL Sufficient Coding Level of Care Code Est Pt Prev Care 18-39y(17983) Diagnoses Annual visit for general adult medical examination with abnormal findings Z00.01 Depression with anxiety F41.8 Attention deficit hyperactivity disorder (ADHD), combined type F90.2 Attention deficit-hyperactivity disorder type: combined inattentive- hyperactive Personal history of (corrected) congenital malformations of heart and circulatory system Z87.74 TMJ (temporomandibular joint disorder) M26.609 Bruxism (teeth grinding) F45.8 Allergic rhinitis, unspecified seasonality, unspecified trigger J30.9 Allergic rhinitis seasonality: unspecified Allergic rhinitis trigger: unspecified Anemia, pernicious D51.0 Psoriasis L40.9 Migraine without aura and without status migrainosus, not intractable G43.009 Intractability: not intractable Migraine type: migraine (< 15 days per month) without aura Status migrainosus presence: without status migrainosus Advance directive discussed with patient Z71.89 Assessment & Plan Assessment & Plan (1) Annual visit for general adult medical examination with abnormal findings: Code(s): Z00.01 - Encounter for general adult medical examination with abnormal findings Plan: Latest labs results reviewed with patient. Continue with regular dental visit every 6 months and regular eye exams, at least every 2 years. Take adequate calcium in diet and vitamin-D 3 at 2000 IU per cap once a day, in addition to weight-bearing exercises to help maintain good muscle tone and weight control. Instructed to do self-breast exam, and recommended to get yearly mammogram, sta rting at age 40. Up-to-date with her cervical cancer screening. Reminded to get her yearly flu shot and COVID booster (2) Depression with anxiety: Comment: Jessica Castaneda Code(s): F41.8 - Other specified anxiety disorders Category: Medical Plan: Currently on duloxetine and hydroxyzine taken as needed (3) ADHD: Comment: dx in 2019 Code(s): F90.9 - Attention-deficit hyperactivity disorder, unspecified type Category: Medical Qualifiers: Attention deficit-hyperactivity disorder type: combined inattentive- hyperactive Qualified Code(s): F90.2 - Attention-deficit hyperactivity disorder, combined type Plan: Controlled on duloxetine and hydroxyzine as needed, followed by psychiatrist (4) Personal history of (corrected) congenital malformations of heart and circulatory system: Comment: sees Dr Montano at [facility] every 2 years Code(s): Z87.74 - Personal history of (corrected) congenital malformations of heart and circulatory system Category: Medical Plan: Followed by her Cardiology (5) TMJ (temporomandibular joint disorder): Comment: Relieved by wearing mouth guard, sees [facility] in [facility] Code(s): M26.609 - Unspecified temporomandibular joint disorder, unspecified side Category: Medical Plan: Continue wearing a mouth guard, followed by oral surgeon (6) Bruxism (teeth grinding): Comment: Wears mouth guard Code(s): F45.8 - Other somatoform disorders Category: Medical Plan: Continue wearing a mouth guard (7) Allergic rhinitis: Comment: on SLIT ( IMMUNOTHERAPY) Code(s): J30.9 - Allergic rhinitis, unspecified Category: Medical Qualifiers: Allergic rhinitis seasonality: unspecified Allergic rhinitis trigger: unspecified Qualified Code(s): J30.9 - Allergic rhinitis, unspecified Plan: Continue with loratadine 10 mg daily (8) Anemia, pernicious: Code(s): D51.0 - Vitamin B12 deficiency anemia due to intrinsic factor deficiency Category: Medical Plan: Followed by GI clinic, currently on vitamin B12 supplementation (9) Psoriasis: Code(s): L40.9 - Psoriasis, unspecified Category: Medical Plan: Followed at [facility] (10) Migraine: Comment: w/ aura s/s- however visual aura is prolonged Code(s): G43.909 - Migraine, unspecified, not intractable, without status migrainosus Category: Medical Qualifiers: Intractability: not intractable Migraine type: migraine (< 15 days per month) without aura Status migrainosus presence: without status migrainosus Qualified Code(s): G43.009 - Migraine without aura, not intractable, without status migrainosus Plan: On Emgality, Nurtec ODT, and magnesium oxide (11) Advance directive discussed with patient: Code(s): Z71.89 - Other specified counseling Plan: Initiated the conversation about Advanced Directives. Advanced Directives help patients prepare for current and future decisions about their medical treatment and place of care. Discussed with patient that it is a process where a patients current condition and prognosis are reviewed, their wishes for information regarding their illness are elicited, and likely medical dilemmas are presented and options discussed. Healthcare proxy form completed today. The form can be amended as needed, reviewed yearly and make changes as needed
--- OUTSIDE RECORDS SUMMARY | 2025-08-31 08:47 | XMS_ITS | Clinical Summary ---
Author Organization [facility] Address [address] [place] [address] Phone Care Team Providers Care Handbell Choir Director Name Role Phone Moreno Barron MD Primary Care Provider [phone] Allergies Active Allergy Reactions Criticality Noted Date [...] NEEDED (MD GONZALO AWARE) 03/17/20 25 Active DULoxetine (CYMBALTA) [address] capsule Take 1 capsule (20 mg total) by mouth 2 (two) times a day. as directed 07/23/20 25 Active EPINEPHrine (EPIPEN) 0.3 mg/0.3 mL injection INJECT 1 PEN INTO MUSCLE ONCE NEEDED Active riboflavin (VITAMIN B2) 400 mg tablet TAKE 1 TABLET (400 MG) BY MOUTH DAILY FOR 30 DAYS Active sodium fluoride-pot nitrate 1.1-5 % paste dental paste USE 2-3X/DAILY, SPIT OUT EXCESS DO NOT RINSE WITH WATER. NO EATING OR DRINKING FOR 45 MIN AFTER. Active SUMAtriptan (IMITREX) 50 mg tablet PLEASE SEE ATTACHED FOR DETAILED DIRECTIONS Active Active Problems Problem Noted Date Diagnosed Date Tachycardia 08/21/2025 Pernicious anemia 02/01/2025 Epistaxis 12/29/2024 Headache 12/29/2024 Female hirsutism 03/19/2022 Seasonal allergies 05/10/2020 ADHD 11/22/2019 Overview (12/29/2024): Per Dr. Moctezuma Migraine with aura and witho ut status migrainosus, not intractable 05/05/2017 Generalized anxiety disorder 09/14/2015 Overview (12/29/2024): Psychologist:tolerating paxil without issue. PMS (premenstrual syndrome) 09/14/2015 Encounters Date Type Department Care Team Description 08/21/2025 9:15 AM EDT Office Visit Obstetrics and Gynecology - [address] [phone] Erlinda Rowell, Breast skin changes (Primary Dx) 07/13/2025 Telephone Obstetrics & Gynecology - [address] [phone] Sanaz Posadas CNM from Last 3 Months Immunizations Immunization Administration Dates Next Due DTP 05/19/1996, 5,1995,03/26 DTaP (Infanrix) 6wks to less than 7yo 08/11/2000 PWdC-MHC-TJU (Pentacel) 2mo to less than 5yo 05/19/1996,1995,1995,03/26 [...] 08/11/2000,05/19/1996 Meningococcal MCV4P 01/07/2011 OPV 05/19/1996, 5,1995,03/26 Zin.gl SARS-CoV-2 COVID-19, mRNA, LNP-S, preservative free 11/08/2021,04/01/2021,03/11/2021 Tdap Tetanus diptheria acell ular pertussis (Boostrix; Adacel) 7yo and older 07/27/2017,03/16/2007 Varicella live (Varivax) 12m o and older 01/07/2011,05/17/1999 Surgical History Surgery Date Site/Laterality Comments CARDIAC SURGERY 1999 PROCEDURE: HISTORICAL HEART SURGERY(ASD,VSD,VALVES); COMMENT: [facility] OTHER SURGICAL HISTORY 2014 N/A PROCEDURE: [place] EXCISION PILONIDAL CYST/SINUS COMPLICATED Medical History Medical [...] = 0.6 oz pur e alcohol) Comments No Sex and Gender Information Value Date Recorded Sex Assigned at Not on file Legal Sex Female 7:18 AM EST Gender Identity Not on file Sexual Orientation Not on file Obstetrics History Para Term AB IAB SAB Ectopic Multiple Livin g Live Births 0 0 0 0 0 0 0 0 Last Filed Vital Signs Vital Sign Reading Time Taken Comments Blood Pressure 115/81 08/21/2025 9:34 AM EDT Pulse 85 08/21/2025 9:34 AM EDT Temperature - - Respiratory Rate - - Oxygen Saturation - - Inhaled Oxygen Concentration - - Weight 79.8 kg (176 lb) 08/21/2025 9:34 AM EDT Height 175.3 cm (5' 9 ) 08/21/2025 9:34 AM EDT Body Mass Index 25.99 08/21/2025 9:34 AM EDT Plan of Treatment Upcoming Encounters Date Type Department Care Team (Late st Contact Info) Description 09/19/2025 10:00 AM EDT Appointment Radiology Department - [address] [phone] 09/19/2025 10:30 AM EDT Appointment Radiology Department - [address] [phone] Health Maintenance Due Date Last Done Comments HIV Screening 11/08/2022 Hepatitis C Screening 11/08/2022 Social Influencers of Health Screening 11/08/2022 Depression Screening 11/30/2024 Cholesterol Screening (Lipid Panel) 07/05/2026 07/05/2021 DTaP,Tdap,and Td Vaccines (8 - Td or Tdap) 07/27/2027 07/27/2017, 03/16/2007, 08/11/2000, Additional history exists Cervical Cancer Screening: HPV 03/29/2029 03/29/2024 RSV Immunization Adult Patients (1 - 1-dose 75+ series) 2070 Hepatitis B Vaccines Completed 1995, 1995, 1995 HIB Vaccines Completed 05/19/1996, 05/01, 1995, Additional history exists IPV Vaccines Completed 08/11/2000, 05/01, 05/19/1996, Additional history exists MMR Vaccines Completed 08/11/2000, 05/19/1996 HPV Vaccines Completed 11/26/2007, 04/30, 03/16/2007 Meningococcal ACWY Vaccine Aged Out 01/07/2011 N o longer eligible based on patient's age to complete this topic Varicella Vaccines Completed 01/07/2011, 05/17/1999 COVID-19 Vaccine Completed 08/13/2025, 07/2024, 09/07/2023, Additional history exists Influenza Vaccine Completed 08/13/2025, , 09/07/2023, Additional history exists Hepatitis A Vaccines Aged [...] (03/29/2024) Cervical Cancer Screening: HPV Negative, Abstracted Historical Provider MD HEALTH MAINTENANCE Final Result * Lipid panel (07/05/2021) LDL/HDL Ratio 3 0 - 4 Triglycerides 118 0 - 150 mg/dL Cholesterol 174 0 - 200 mg/dL HDL 67 >=40 mg/dL LDL Cholesterol 84 0 - 100 mg/dL Blood Venous blood specimen / Unknown us Historical Provider LAB BLOOD ORDERABLES Amy l Result from Last 3 Months or Most Recently Relevant to Health Maintenance Insurance [facility] ([facility]) Care Teams Handbell Choir Director Relationship Specialty Start Date End Date Moreno Barron MD [address] [place] [id number] PCP - General Internal Medicine 08/01/25
--- OUTSIDE RECORDS SUMMARY | 2025-08-31 08:47 | XMS_ITS | Clinical Summary ---
Author Organization [facility] Address [address] [place] [address] Phone Care Team Providers Care Inspector Chief Name Role Phone Ca Ordoñez Primary Care Provider Ca Ordoñez Unavailable [phone] Bailey Holt MD Unavailable Reynold Draper MD Unavailable [phone] Allergies Active Allergy Reactions Criticality Noted Date [...] cm (5' 8.66 ) 02/01/2025 10:31 AM Vicki CASTELLANO Body Mass Index 23.48 02/01/2025 10:31 AM EST Plan of Treatment Upcoming Encounters Date Type Department Care Team (Late st Contact Info) Description 02/09/2026 10:00 AM EDT Appointment [facility] [address] [place] [phone] 02/09/2026 11:00 AM EDT Appointment [facility] [address] [place] [phone] Reynold Draper MD [address] [place] [address] Health Maintenance Due Date Last Done Comments Chlamydia and Gonorrhea Screening 1995 HIV Screening 1995 Anemia Screening 2007 Hepatitis C Screening 2013 Influenza Vaccine (#1) [...] patient's age to complete this topic Insurance BLUE CROSS - OOS BLUE CROSS - OOS Care Teams Inspector Chief Relationship Specialty Start Date End Date Ca Ordoñez [address] [place] [address] PCP - General 10/07/23 Ca Ordoñez [address] [place] [address] PCP - Clinical PCP 10/07/23 Bailey Holt MD [address] [place] [address] PCP - Insurance PCP 02/24/06 Reynold Draper MD [address] [place] [id number] Cosmetology Educator 04/30/24
== END 2025-08-31 09:23 | disposition home or self-care (01) ==
LOC: HO.HMCC 08:31
PROVIDERS: PCP Internal Medicine; Visit Provider Internal Medicine
DX: Z00.01 Encounter for general adult medical examination with abnormal findings (principal); F41.8 Other specified anxiety disorders; F90.2 Attention-deficit hyperactivity disorder, combined type; Z87.74 Personal history of (corrected) congenital malformations of heart and circulatory system; M26.609 Unspecified temporomandibular joint disorder, unspecified side; F45.8 Other somatoform disorders; J30.9 Allergic rhinitis, unspecified; D51.0 Vitamin B12 deficiency anemia due to intrinsic factor deficiency; L40.9 Psoriasis, unspecified; G43.009 Migraine without aura, not intractable, without status migrainosus; Z71.89 Other specified counseling

== ENCOUNTER 2025-11-22 09:30 | Outpatient (AMB) | payer BC, SELFPAY ==
[2025-11-22 09:32] VITALS: BP 110/72; PULSE 78; O2SAT 99; BMI 26.7
--- NOTE | 2025-11-22 09:32 | A.OFFVIS_ITS ---
Vital Signs 11/22/25 09:32 Height 5 ft 9 in Weight 181 lb BMI 26.7 BP 110/72 Blood Pressure Location Rt brachial Position Sitting Pulse 78 Pulse Source Pulse Oximeter Pulse Oximetry (%) 99 Oxygen Delivery Method Room Air Intake Visit Reasons: 3mnth follow up Factory Superintendent Required: No Accompanied by: Self / Same As Patient Allergies environmental allergies Allergy (Unknown, Verified 11/29/25 09:46) Unknown house dust Allergy (Unknown, Verified 11/29/25 09:46) Unknown pollen extracts Allergy (Unknown, Verified 11/29/25 09:46) Unknown Sulfa (Sulfonamide Antibiotics) Allergy (Verified 11/29/25 09:46) Unknown topiramate Allergy (Verified 11/29/25 09:46) Unknown atomoxetine Adverse Reaction (Verified 11/29/25:46) tinnitus HPI Comments Details: 30-yr-old female presents for f/u visit of migraine, as well as to discuss symptoms of paresthesias. She recently underwent a recent skin biopsy on a left upper inner thigh growing lesion, results were abnormal, suggestive of lichen plenus vs drug skin eruption vs connective tissue d/o. No recent med changes- and the lesion was isolated. 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 She again endorses hypermobility, including jaw loosens, arms. She also saw her TMJ specialist, who gave her a guard driver to suppress jaw hypermobility, which has made her bite her tongue during the day and during sleep. She reports she is having more vestibular migraine symptoms, which made her realize that she had vestibular migraine symptoms at the age of 4. She states that the migraines upticked when the weather starts becoming colder Drinking Shon's alphonso lucinda, if taken quickly, can help. 06/20/2025, HPI: Patient reports since last visit, she has undergone workup for possible fibromyalgia. Patient has reported increasing joint pain, as well as increasing numbness and tingling in both hands and feet. She has been compliant with vitamin B12 injections for pernicious anemia- the dose was held recently to determine if she needed hematology consult. Through her PCP office, interval labs showed positive ANGELINE 1:1280, B12 354 in February and 602 in June 2024, folate 12.2, HGB 12.2 and HCT 35.2 an MCV 79.3, WBC 3.4. She notes a family history of lupus- paternal uncle. Since the lab work was completed, patient had rheumatology consult, and patient reports it was suggested she has fibromyalgia. And suggested that they ANGELINE could have been triggered by her beta-shyanne use. Since, patient underwent BUE/BLE EMG/NCS, results of which were notable for sensory-motor polyneuropathy, with both demyelinating and axonal features. And without evidence for for median neuropathy, ulnar neuropathy, brachial plexopathy, cervical radiculopathy, lumbosacral plexopathy or lumbar radiculopathy. During the EMG/NCS study, it was noted that patient has bilateral low arches without weakness or atrophy. Patient states her father also has flat feet, as well as clubbed fingers- he does not smoke, but has a history of burn injury as an /child, and otherwise does not routinely seek medical care. Patient is unaware of any known family history of polyneuropathies what recurrent mono- neuropathies. Patient's mother also has been recently diagnosed with pernicious anemia and has bilateral lower extremity tingling symptoms. Patient states her psychiatric provider would like to change her citalopram to Cymbalta, but wanted our opinion 1st. 12/20/2024, previous HPI: Pt reports she has had a reduction in her monthly migraine days and severity of migraine attacks since starting Emgality. Prior to starting Emgality she would have 4 migraine attacks per month which could last up to 3 days each. She is tolerating Emgality well, but does make sure to remove from refrigerator at least 1 hour to reduce injection discomfort. She states that her insurance has only been approving her Emgality for three- month periods, which does make it difficult to stay consistent with use. Pt reports she is currently having 2 migraine headache days per month. Though she is overall photophobic. Using Nurtec ODT 75mg prn- which continues to be effective well.. She is continuing to treat her TMJ s/s- wearing a retainer which is helping. She is finding that she is more foggy, confused, and having difficulty at work and at home. Notes that sometimes she will forget something told to her either at home or at work. She may forget to do her household tasks. If she is engaged in something, she may forget to eat. She has had some weight loss. She is also followed by GI. She has been having some increased stress at home, related to her grandmother needing some assistance with healthcare issues. Was tried on atomoxetine but this caused hearing issues/tinnitus. Patient states her current psychiatric provider we will not trial her on a stimulant type ADHD tx and has requested that she see a psychiatrist with experience in people with cardiac conditions. She is hesitant to add another specialist to her care team. However, she does have a upcoming appointment with [facility] adult cardiology clinic. Has plans to have a stress test to assess if she can safely take stimulant ADHD tx. She states her [facility] spray gun repairer has stated that she does not have current cardiac dysfunction. 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, unspecified Obstruction of nasal valve Disturbance of sleep Vitamin D deficiency Vitamin B12 deficiency TMJ (temporomandibular joint disorder) Bruxism (teeth grinding) Chronic headaches Allergic rhinitis Hx of epistaxis ADHD VSD (ventricular septal defect) ASD (atrial septal defect) Depression with anxiety Surgical History Hx of atrial septal defect repair Hx of ventricular septal defect repair History of surgical removal of pilonidal cyst Family History Father Mental health disorder HTN (hypertension) Mother HTN (hypertension) IBS (irritable bowel syndrome) Sister Anxiety Depression Social History Housing: House Alcohol intake: current Alcohol intake frequency: a few times a month Patient Tobacco Use Status: Never used Tobacco e-Cigarette/Vaping Use: Never Used Current occupational status: employed Cognitive needs: No Hearing needs: No Vision needs: Yes Physical Exam Vital Signs: Last Vital Signs Pulse 78 11/22/25 09:32 BP 110/72 11/22/25 09:32 Pulse Ox 99 11/22/25 09:32 Oxygen Delivery Method Room Air 11/22/25 09:32 BMI result Body Mass Index 26.7 Const General: cooperative and no acute distress Orientation/consciousness: patient oriented x3 Resp Effort & Inspection: normal respiratory effort and able to speak in complete sentences Neuro General: patient oriented x3 Cranial nerves: Yes CN's II-XII intact bilaterally Cognition (Neuro): normal cognition Psych Appearance: grossly normal Mental Status: mental status grossly normal Speech and movement: Normal speech and movement present Affect: normal affect Attitude: cooperative Assessment & Plan Assessment & Plan (1) Migraine: Comment: w/ aura s/s- however visual aura is prolonged Code(s): G43.909 - Migraine, unspecified, not intractable, without status migrainosus Category: Medical Qualifiers: Intractability: not intractable Migraine type: migraine (< 15 days per month) without aura Status migrainosus presence: without status migrainosus Qualified Code(s): G43.009 - Migraine without aura, not intractable, without status migrainosus (2) Mixed axonal-demyelinating polyneuropathy: Code(s): G62.89 - Other specified polyneuropathies Category: Medical (3) TMJ (temporomandibular joint disorder): Comment: Relieved by wearing mouth guard, sees [facility] in [facility] Code(s): M26.609 - Unspecified temporomandibular joint disorder, unspecified side Category: Medical (4) ADHD: Comment: dx in 2019 Code(s): F90.9 - Attention-deficit hyperactivity disorder, unspecified type Category: Medical Qualifiers: Attention deficit-hyperactivity disorder type: combined inattentive- hyperactive Qualified Code(s): F90.2 - Attention-deficit hyperactivity disorder, combined type Plan For sensory motor axonal and demyelinating neuropathy: Reviewed interval lab work, which was overall unremarkable. Follow-up with Dermatology regarding recent skin biopsy results Rheumatology consult as scheduled Continue duloxetine per Psychiatry Future considerations: PT eval and treat with hypermobility specialist, trial of alpha lipoic acid For cognition in setting of adult ADHD: Patient would benefit from optimizing management of her ADHD s/s. 02/02/2025, CP[facility] at [facility], showed a severely depressed peak VO2 (14.9 mL/kg/minute), which was felt to be most likely secondary to physical deconditioning. Patient, per Cardiology note, was encouraged to increase aerobic physical activity to 150 minutes per week. And will follow-up with cardiology with the planned echocardiogram in 1 year. Information previously shared on adult ADHD symptom management. HST- normal. ? For overall headache management: Continue to optimize good self-care, including but not limited to maintaining a healthy diet,? adequate fluid intake, adequate sleep, and engaging in regular physical activity. Track headaches, especially after any treatment regimen changes. For acute headache treatment: Zofran 4mg q 4 hrs prn N/V/migraine attack. Continue Nurtec ODT 75mg po qd prn at onset of migraine. May adjunct w/ Tylenol, Ibuprofen, Naproxen, or Pamprin. Previous acute migraine medication trials: Sumatriptan 25mg- some effect, however would not increase d/t tachycardia at rest and h/o cardiac repair. Acute migraine medication contraindications: Triptans- as above ? For headache prevention medication: Magnesium 400mg qhs Continue Propranolol ER 60mg?qhs- prescribed for palpitations Continue Emgality 120 mg subcu q.month, as patient has had greater than 50% reduction in monthly migraine days. Previous migraine prevention medication trials: Topiramate- caused contact hives in her hands. Riboflavin 400mg qam- ineffective. Amitriptyline 10mg qhs- not tolerated.. Migraine prevention medication contraindications: None at this time ? f/u in 6 months or sooner prn. Coding Level of Care Code Est Pt Level 4 (86716) Diagnoses Migraine without aura and without status migrainosus, not intractable G43.009 Intractability: not intractable Migraine type: migraine (< 15 days per month) without aura Status migrainosus presence: without status migrainosus Mixed axonal-demyelinating polyneuropathy G62.89 TMJ (temporomandibular joint disorder) M26.609 Attention deficit hyperactivity disorder (ADHD), combined type F90.2 Attention deficit-hyperactivity disorder type: combined inattentive- hyperactive
--- OUTSIDE RECORDS SUMMARY | 2025-11-22 09:33 | XMS_ITS | Clinical Summary ---
Author Organization [facility] Address [address] [place] [address] Care Team Providers Care Inspection And Testing Supervisor Name Role Phone Unavailable Primary Care Provider Unavailabl e Social History Tobacco Use Types Packs/Day Years Used Date Smoking Tobacco: Never Assessed Comments Unknown Sex and Gender Information Value Date Recorded Sex Assigned at Not on file Legal Sex Female 11:56 PM EDT Gender Identity Not on file Sexual Orientation Not on file Plan of Treatment Not on file
--- OUTSIDE RECORDS SUMMARY | 2025-11-22 09:33 | XMS_ITS | Data Portability ---
Author Organization [place] - [facility], Allergy Address [address] [address] Care Team Providers Care Negative Assembler Name Role Phone ASHLIE VIDHI Primary Care [...] e 1 % topical solution 2023 024 [id number], [address] [place], [address], 4 15:58:30 clotrimazol e-betametha sone 1 %-0.05 % topical cream 2023 024 [id number], [address] [place], [address], 4 15:58:29 Patient TargetsNo targets recorded. Patient InstructionsNo instructions recorded. Reason for Referral None Reported. Problems Name Problem SNOMED Code Status Onset Date Resolution Date Notes Provider Name and Address Organization Details Recorded Time Bleeding from nose 883186489 Active 2019 Epistaxis ; Note: Date Diagnosed : 04/04/2020 2:56 PM (R04.0) Not Available [facility] 4 03:13:37 Allergic rhinitis 87799731 Active 2020 Other allergic rhinitis; Note: Date Diagnosed : 03/19/2021 11:28 AM (J30.89) Not Available [facility] 4 03:13:37 Diffuse otitis externa 43563344 Active 2023 Emy proctor [place] - [facility] 4 15:55:37 Itching of skin 302084543 Active 2023 Emy proctor [place] - [facility] 4 12:04:54 Seasonal allergic rhinitis 585047984 Active 2023 DEBORAH BRISENO MD [address] [place] [address], [place], [address] , [facility] - [facility] 4 08:57:54 Problem Notes None recorded. Medical Equipment None Reported. Allergies Allergen ID Allergen Name Allergen Category Reaction Reaction Severity Criticality Documentation Date Start Date Code Code System Note Provider Name and Address Organization Details Recorded Time 377928 aspirin medicatio n other Not available Not available 04/12/2024 1191 RxNorm React ion: unkno wn, unspe cifie d;; Not Available [facility] 4 01:19:09 796533 Substance with sulfonami de structure and antibacte rial mechanism of action (substanc e) medicatio n other Not available Not available 04/12/2024 44601 8003 SNOMED React ion: unkno wn, unspe cifie d;; Not Available [facility] 4 01:19:10 Medications Name Sig Start Date Stop Date Status Note LastModified by Organization Details LastModified Time amoxicill in 500 mg capsule TAKE 1 CAPSULE BY MOUTH TWICE A DAY active Not Available Not Available No t Available acetic acid 2 % ear solution 03/19 completed Medicati on ID: [id number] B rand Name: acetic acid Sen d Method: E-Prescr ibed Sub s Allowed: subs OK Medic ationGen ericName : acetic acid Not Available Not Available Not Available citalopra m 40 mg tablet 1 tablet by mouth 2020 active Medicati on ID: [id number] B rand Name: citalopr am Send Method: [...] dental gel 03/19 completed Medicati on ID: [id number] B rand Name: SF Send Method: E-Prescr ibed Sub s Allowed: subs OK Medic ationGen ericName : SF Not Available Not Available Not Available amoxicill in 500 mg tablet TAKE 1 TABLET BY MOUTH EVERY 6 HOURS UNTIL GONE active Not Available Not Available No t Available ofloxacin 0.3 % ear drops 04/24 completed Medicati on ID: [id number] B rand Name: ofloxaci n Send Method: [...] mg tablet 03/19 completed Medicati on ID: [id number] D uration Value: 90 Brand Name: paroxeti [...] mg tablet 03/19 completed Medicati on ID: [id number] D uration Value: 30 Brand Name: ibuprofe [...] mg tablet 03/19 completed Medicati on ID: [id number] D uration Value: 28 Brand Name: Alyssa [...] as needed 2023 active Medicati on ID: [id number] D uration Value: 1 Brand Name: EpiPen 2-Vasiliy Se nd Method: E-Prescr ibed Sub s Allowed: subs OK Medic ationGen ericName : EpiPen 2-Vasiliy Not Available Not Available Not Available Emgality Pen 120 mg/mL subcutane ous pen injector PLEASE SEE ATTACHED FOR DETAILED DIRECTIO NS active Not Available Not Available No t Available Flucelvax Quad 03/19 completed Medicati on ID: [id number] D uration Value: 1 Brand Name: Flucelva [...] Updated DateTime 06/07/2024 175.26 cm 25.8 kg/m2 22853.66 g Nancy Mays [place] - [facility] 06/07/2024 15:27:01 Date Recorded Body height Body mass index (BMI) Body weight Provider Name and Address Organization Details Last Updated DateTime 07/07/2024 175.26 cm 25.8 kg/m2 33591.66 g Nancy Mays [place] - [facility] 07/07/2024 11:08:29 Date Recorded Body height Body mass index (BMI) Body weight Provider Name and Address Organization Details Last Updated DateTime 09/19/2024 175.26 cm 24.4 kg/m2 [address] - [facility] 09/19/2024 08:42:20 Social History None recorded. Functional Status None recorded. Mental Status None recorded. Family History Nothing Reported. Medical History No medical history recorded. Gynecological HistoryNo gynecological history recorded. Obstetrics History GPAL:G 0 P 0 0 0 0 Past Encounters Encounter ID Performer Location Encounter Start Date Encounter Closed Date Diagnosis/Indication Diagnosis SNOMED-CT Code Diagnosis ICD10 Code Diagnosis IMO Codes Diagnosis Note [id number] EMY GAMBLE PA-C [facility] on [address] [place] [address] 06/07/2024 15:03:57 06/07/2024 15:48:34 Diffuse otitis externa 45735396 H60.311 [id number] EMY GAMBLE PA-C [facility] on [address] [place] [address], [place] [address] 07/07/2024 10:59:06 07/07/2024 13:00:56 Itching of skin 632185543 L29.9 [id number] DEBORAH BRISENO MD [facility] [address] [address] 09/19/2024 08:39:00 09/19/2024 08:57:42 Seasonal allergic rhinitis 258929446 J30.2 The patient is benefiting from immunother [...] ID Guarantor Name 10/04/2024 1 CAITLIN (PPO) [id number] 2 Tammy Naqvi [id number] 66 Tammy Naqvi Notes Date Note Type [...] intensive treatment for TMJ. HARMAN LLAMAS MD [address] [place] [address], [phone], [facility] - [facility] 06/08/2024 07:44:48 07/07/2024 text/html ROS as noted in the HPI 29 year old female with a history of dermatitis presents today for follow up for bilateral fungal OE. She used the clotrimazole drops and Lotrisone cream which helped. Then she used the vinegar and this made her ear flaky again. Emy proctor [place] - [facility] 07/07/2024 12:08:31 09/19/2024 text/html ROS as noted in the [facility] allergiesShe has been receiving SLIT since 06/19. She notes improvement in her allergy symptoms in general. Did have a sinus infection which required prednisone a couple weeks ago. Has some itching under her tongue when she administers the allergy drops but no swelling or systemic reactions. Has noted sensitivity to strawberries and some nuts. DEBORAH BRISENO MD [address] [place] [address], [place], [address], [facility] - [facility] 09/19/2024 08:59:36 OBGyn Episode No OBEpisode recorded.
--- OUTSIDE RECORDS SUMMARY | 2025-11-22 09:33 | XMS_ITS | Encounter Summary ---
Author Organization [facility] Address [address] [place] [address] Care Team Providers Care Barrel Tester And Drainer Name Role Phone Moreno Barron MD Primary Care Provider [phone] Encounter Details Date Type Department Care Team (Late st Contact Info) Description 09/19/2025 Results Follow-Up Obstetrics and Gy[facility]cology - [facility] [address] [place], [place] [phone] Erlinda Rowell DO [address] [place], [place] Social History Tobacco Use Types Packs/Day Years Used Date Smoking Tobacco: Never Smokeless Tobacco: Never Alcohol Use Standard Drinks/Week Comments Yes 0 (1 standard drink = 0.6 oz pur e alcohol) Comments No Sex and Gender Information Value Date Recorded Sex Assigned at Not on file Legal Sex Female 7:18 AM EST Gender Identity Not on file Sexual Orientation Not on file documented as of this encounter Plan of Treatment Upcoming Encounters Date Type Department Care Team (Late st Contact Info) Description 12/26/2025 10:00 AM EST Appointment Radiology Department - [address] [address] documented as of this encounter Visit Diagnoses Not on filedocumented in this encounter Care Teams Barrel Tester And Drainer Relationship Specialty Start Date End Date Moreno Barron MD [address] [place] [address] PCP - General Internal Medicine 08/01/25 documented as of this encounter
--- OUTSIDE RECORDS SUMMARY | 2025-11-22 09:33 | XMS_ITS | Clinical Summary ---
Author Organization [facility] Address [address] [place] [address] Phone Care Team Providers Care Asset Card Clerk Name Role Phone Moreno Barron MD Primary Care Provider [phone] Allergies Active Allergy Reactions Criticality Noted Date [...] Encounters Date Type Department Care Team Description 09/19/2025 9:41 AM EDT - 09/19/2025 11:59 PM EDT Hospital Encounter Radiology Department - [address] [address] Breast skin changes Discharge Disposition: Home or Self Care 09/19/2025 9:40 AM EDT - 09/19/2025 11:59 PM EDT Hospital Encounter Radiology Department - [address] [address] Breast skin changes Discharge Disposition: Home or Self Care 09/19/2025 Results Follow-Up Obstetrics [facility] Gynecology - [address] [place] [address] Erlinda Rowell DO from Last 3 Months Immunizations Immunization Administration Dates Next Due DTP 05/19/1996, 5,1995,03/26 DTaP (Infanrix) 6wks to less than 7yo 08/11/2000 WYiD-SLC-FLA (Pentacel) 2mo to less than 5yo 05/19/1996,1995,1995,03/26 [...] SURGERY 1999 PROCEDURE: HISTORICAL HEART SURGERY(ASD,VSD,VALVES); COMMENT: [facility] OTHER SURGICAL HISTORY 2014 N/A PROCEDURE: [place] EXCISION PILONIDAL CYST/SINUS COMPLICATED Medical History Medical [...] Father Hypertension Father Breast cancer Father's side pat great auntx2 Hypertension Mother Other: fibroids Mother Asthma Sister 1 Colon cancer Neg Hx Ovarian cancer Neg Hx Prostate cancer Neg Hx Relation Name Status Comments Father Alive 12/25/64 JAVON Father's side pat great auntx2 Alive aunts x3 u nder age 40 Mother Alive 03/24/66 CHITO Sister [...] 12/26/2025 10:00 AM EST Appointment Radiology Department [address] [phone] Health Maintenance Due Date Last Done Comments [...] Procedure Name Priority Date/Time Associated Diagnosis Comments US BREAST LIMITED LEFT Routine 09/19/2025 10:13 AM EDT Breast skin changes MG MAMMO DIGITAL DIAGNOSTIC W ZION BILAT Routine 09/19/2025 10:03 AM EDT Breast skin changes HM HPV Routine 03/29/2024 LIPID PANEL Routine 07/05/2021 from Last 3 Months or Most Recently Relevant to Health Maintenance Results * US Breast Limited Left (09/19/2025 10:13 AM EDT) Anatomical Region Laterality Modality Breast Left Ultrasound 09/19/2025 10:3 3 AM EDT Impressions 09/19/2025 10:42 AM EDT No mammographic evidence for malignancy. Follow-up mammogram at the age of 40 is not otherwise clinically indicated. Clinical evaluation of the skin as well as some abnormal lymph nodes in the left axilla is recommended. Findings and recommendations were conveyed to the patient. BI-RADS CATEGORY: 1 - NEGATIVE RECOMMENDATION: Screening bilateral mammogram recommended at age 40 unless clinically indicated earlier. Clinical management of left breast is recommended. Clinical management of left breast is recommended. Clinical management of left breast is recommended. Mammo Location: [facility], [address] [place] [address], [address], . -------- FINAL REPORT -------- Dictated By: Hannah Ivey Dictated Date: 09/19/2025 10:33 ET Assigned Physician: Hannah Ivey Reviewed and Electronically Signed By: Hannah Ivey Signed Date: 09/19/2025 10:42 ET Workstation ID: [id number] Transcribed By: Self Edit Transcribed Date: 09/19/2025 10:33 ET Narrative 09/19/2025 10:42 AM EDT Diagnostic mammogram. Targeted ultrasound of the left breast and left axilla CLINICAL: 30 years old, Female, skin discoloration medially to the left nipple. History of from autoimmune disorders including psoriasis, pernicious anemia and others. COMPARISON: Not available FINDINGS: MAMMOGRAPHY TECHNIQUE: Bilateral MLO and CC views were obtained digitally with 2-D C views 3-D mammogram (digital breast tomosynthesis). Computer-aided detection was utilized in evaluation of this exam (CAD). There is no evidence of suspicious mass or architectural distortion. No worrisome calcifications are evident BREAST DENSITY: C - The breasts are heterogeneously dense which may obscure small masses. ULTRASOUND TECHNIQUE: Targeted evaluation of the left breast was performed. With attention to the area of concern indicated by the patient medially to the left nipple. No cystic or solid masses or acoustic shadowing identified. Patient also indicated the discomfort in the left axilla. Evaluation of the left axilla revealed 2 lymph nodes measuring 1.5 x 1 x 1.4 cm and 1.5 x 1.3 x 1.7 cm. Both lymph nodes revealed significant thickening of the cortex measuring approximately 8 mm. This could be reactive lymph node due to patient's known calcaneal conditions. However possibility of lymphoma should also be considered. Further clinical evaluation is recommended. 3 month follow-up ultrasound of the left axilla is also recommended and it was scheduled. Findings were explained to the patient. She was advised to follow with her provider as well as his senior informatica developer in regards to discoloration of the skin. us Erlinda Rowell DO IMG US PROCEDURES Final Resul t * MG Mammo Digital Diagnostic w Zion bilat (09/19/2025 10:03 AM EDT) Anatomical Region Laterality Modality Breast Bilateral Mammography 09/19/2025 10:3 3 AM EDT Impressions 09/19/2025 10:42 AM EDT No mammographic evidence for malignancy. Follow-up mammogram at the age of 40 is not otherwise clinically indicated. Clinical evaluation of the skin as well as some abnormal lymph nodes in the left axilla is recommended. Findings and recommendations were conveyed to the patient. BI-RADS CATEGORY: 1 - NEGATIVE RECOMMENDATION: Screening bilateral mammogram recommended at age 40 unless clinically indicated earlier. Clinical management of left breast is recommended. Clinical management of left breast is recommended. Clinical management of left breast is recommended. Mammo Location: [facility], [address] [place] [address], [address], . -------- FINAL REPORT -------- Dictated By: Hannah Ivey Dictated Date: 09/19/2025 10:33 ET Assigned Physician: Hannah Ivey Reviewed and Electronically Signed By: Hannah Ivey Signed Date: 09/19/2025 10:42 ET Workstation ID: [id number] Transcribed By: Self Edit Transcribed Date: 09/19/2025 10:33 ET Narrative 09/19/2025 10:42 AM EDT Diagnostic mammogram. Targeted ultrasound of the left breast and left axilla CLINICAL: 30 years old, Female, skin discoloration medially to the left nipple. History of from autoimmune disorders including psoriasis, pernicious anemia and others. COMPARISON: Not available FINDINGS: MAMMOGRAPHY TECHNIQUE: Bilateral MLO and CC views were obtained digitally with 2-D C views 3-D mammogram (digital breast tomosynthesis). Computer-aided detection was utilized in evaluation of this exam (CAD). There is no evidence of suspicious mass or architectural distortion. No worrisome calcifications are evident BREAST DENSITY: C - The breasts are heterogeneously dense which may obscure small masses. ULTRASOUND TECHNIQUE: Targeted evaluation of the left breast was performed. With attention to the area of concern indicated by the patient medially to the left nipple. No cystic or solid masses or acoustic shadowing identified. Patient also indicated the discomfort in the left axilla. Evaluation of the left axilla revealed 2 lymph nodes measuring 1.5 x 1 x 1.4 cm and 1.5 x 1.3 x 1.7 cm. Both lymph nodes revealed significant thickening of the cortex measuring approximately 8 mm. This could be reactive lymph node due to patient's known calcaneal conditions. However possibility of lymphoma should also be considered. Further clinical evaluation is recommended. 3 month follow-up ultrasound of the left axilla is also recommended and it was scheduled. Findings were explained to the patient. She was advised to follow with her provider as well as his senior informatica developer in regards to discoloration of the skin. Erlinda Rowell DO IMG BI PROCEDURES Final Resul t * Cervical Cancer Screening: HPV (03/29/2024) [facility] Cervical Cancer Screening: HPV Negative, Abstracted Historical Provider HEALTH MAINTENANCE Final Result * Lipid panel (07/05/2021) [facility] LDL/HDL Ratio 3 0 - 4 Triglycerides 118 0 - 150 mg/dL Cholesterol 174 0 - 200 mg/dL HDL 67 >=40 mg/dL LDL Cholesterol 84 0 - 100 mg/dL Blood Venous blood specimen / Unknown us Historical Provider LAB BLOOD ORDERABLES Amy arndt Result from Last 3 Months or Most Recently Relevant to Health Maintenance Insurance [employer] [facility]) Care Teams Asset Card Clerk Relationship Specialty Start Date End Date Moreno Barron MD [address] [place] [address] PCP - General Internal Medicine 08/01/25
--- OUTSIDE RECORDS SUMMARY | 2025-11-22 09:33 | XMS_ITS | Clinical Summary ---
Author Organization [facility] Address [address] [place] [address] Phone Care Team Providers Care Labor Mediator Name Role Phone Ca Ordoñez Primary Care Provider Ca Ordoñez Unavailable [phone] Bailey Holt MD Unavailable Reynold Draper MD Unavailable [phone] Allergies Active Allergy Reactions Criticality Noted Date [...] Info) Description 02/09/2026 10:00 AM EDT Appointment [facility] [address] [place] [phone] 02/09/2026 11:00 AM EDT Appointment [facility] [address] [place] [phone] Reynold Draper MD [address] [place] [address] Health Maintenance Due Date Last Done Comments Chlamydia and Gonorrhea Screening 1995 HIV Screening 1995 Anemia Screening 2007 Hepatitis C Screening 2013 COVID-19 Vaccine ( season) 2025 10/08/2024, 09/07/2023, 10/11/2022, Additional history exists Influenza Vaccine (#1) 2025 , 09/07/2023, 11/26/2022, [...] patient's age to complete this topic Insurance - OOS - OOS Care Teams Labor Mediator Relationship Specialty Start Date End Date Ca Ordoñez [address] [place] [address] PCP - General 10/07/23 Ca Ordoñez [address] [place] [address] PCP - Clinical PCP 10/07/23 Bailey Holt MD [address] [place] [address] PCP - Insurance PCP 02/24/06 Reynold Draper MD [address] [place] [id number] Technical Marketing Consultant 04/30/24
--- OUTSIDE RECORDS SUMMARY | 2025-11-22 09:34 | XMS_ITS | Data Portability ---
Author Organization [facility] [address] Address [address] [place] [address] Care Team Providers Care Psychologist Name Role Phone [facility] Primary Care Provider Assessment No assessment recorded. Plan of Treatment Reminders Order Date Submit Date Provider Last Modified By Organization Details Last Modified Time Details Appointments None recorded. Lab SARS CoV 2 (COVID-19) Ag, QL, IA, upper respiratory specimen 2022 023 [email or web address] [facility] [address], [address] [place], [address], 09:39:17 Referral None recorded. Procedures None recorded. Surgeries None recorded. Imaging None recorded. Medication Orders amoxicillin 875 mg-potassiu m clavulanate 125 mg tablet 2022 023 [email or web address] [id number], [address] [place], [address], 15:12:51 ketorolac 60 mg/2 mL intramuscul ar solution 2022 023 Not available 08:48:02 Patient TargetsNo targets recorded. Patient Instructions Encounter Date Encounter Id Patient Instructions Last Modified By Organization Details Last Modified Time 12/26/2022 [id number] headache: care instructions [email or web address] Not available 12/26/2022 09:37:29 Continue your regular treatment plan at home. [email or web address] Not available 12/26/2022 09:36:07 11/05/2023 [id number] ear infection (otitis media): care instructions Not [...] ve Not Available [address] [place], [address], 11/05/2023 08:50:13 Result Notes None recorded. Problems Name Problem SNOMED Code Status Onset Date Resolution Date Notes Provider Name and Address Organization Details Recorded Time Tachycardia 6917506 Active KATERINE DEPINTO null, [place] - [facility] 08:49:14 Pernicious anemia 32469098 Active KATERINE DEPINTO null, [place] - [facility] 08:49:19 Migraine 25834134 Active NEL GOMEZ-MICHELLE LAZCANO null, PA - [...] Name and Address Organization Details Recorded Time 687672 Substance with sulfonami de structure and antibacte rial mechanism of action (substanc e) medicatio n other Not available Not available 12/26/2022 44607 8003 SNOMED NEL ABURTO RA null, PA - [facility] 08:55:56 392969 topiramat e medicatio n rash Not available Not available 12/26/2022 61999 RxNorm GONZALO Joiner RA - [facility] [...] [Score] - Reported Respiratory rate Oxygen saturation Heart rate Body temperature Systolic And Diastolic Provider Name and Address Organization Details Last Updated DateTime 3 175.26 cm 25.8 kg/m2 80414.6 6 g 5 17 /min 100 % 95 /min 97.2 [degF] 107/70 mm[Hg] NEL ABURTO RA PA - [facility] 3 08:59:51 Date Recorded Body height Body mass index (BMI) Body weight Respiratory rate Body temperature Oxygen saturation Heart rate Pain severity - 0-10 verbal numeric rating [Score] - Reported Systolic And Diastolic Provider Name and Address Organization Details Last Updated DateTime 3 175.26 cm 26.6 kg/m2 22218.6 3 g 18 /min 97.8 [degF] 97 % 92 /min 0 111/76 mm[Hg] KATERINE KIMBALL PA - [facility] 3 08:51:18 Social History Question Answer Notes LastModified by [employer] Details LastModified Time Tobacco Smoking Status Never [...] Functional Status Question Answer Note LastModified by [employer] Details LastModified Time How many times per [...] PA - [facility] 12/26/2022 08:55:00 Novel [id number], preservative-free 0 completed NEL GOMEZ-ZIEGLER null, PA [...] ICD10 Code Diagnosis IMO Codes Diagnosis Note [id number] [address] [place] [address] 02/27/2022 08:55:38 02/27/2022 10:04:35 [id number] [address] [place] [address] 06/24/2020 13:12:00 06/24/2020 14:11:50 [id number] [address] [place] [address] 01/10/2022 09:19:54 01/10/2022 10:12:28 [id number] [address] [place] [address] 01/28/2021 08:33:58 01/28/2021 09:20:34 [id number] [address] [place] [address] 02/07/2021 08:08:43 02/07/2021 09:44:20 [id number] [address] [place] [address] 05/16/2020 19:04:51 05/16/2020 19:51:35 [id number] [address] [place] [address] 08/16/2018 12:19:29 08/16/2018 14:34:38 [id number] BA MIMS MD [address] [place] [address] 12/26/2022 08:36:25 12/26/2022 09:38:19 Chronic migraine without aura 5784024830 94462 G43.709 [id number] Mili Rosales, PUJA [address] [facility] [address] [facility] [place] [address] 11/05/2023 08:17:12 11/05/2023 09:40:45 Upper respiratory infection 86482911 J06.9 1. Take Ibuprofen or Tylenol if [...] . Severe Headache Thank you for using [facility] [employer] today, please feel free to contact our office if you have any questions or concerns. Acute left otitis media 435902430 H66.92 An ear infection may start with [...] ID Guarantor Name 11/22/2023 1 CAITLIN (PPO) [id number] Tammy Naqvi [id number] 66 [id number] Tammy Naqvi Notes Date Note Type Note Provider Name and Address Organization Details Recorded Time 12/26/2022 text/html Headache UCRepor mani by Patient Ear Pain Brief HPIReported by PatientHPIFor location, patient reportsbilateral. For onset/timing, patient reportsnew onsetandstarted 2days ago. For duration, patient reportspain lasts ____ __andconstant pain. For quality, patient reportsno itching,no discharge from the ears, andno burning. For severity, patient reportsno fever. For context, patient reportsno recent uri.ROS as noted in the HPI She states she has had a migraine headache for 1-2 weeks with little improvement on her current treatment plan. she has also had increased tenderness behind each ear. Afebrile. No vision changes. no nausea. BA MIMS MD [address] [place], [address], [place] - [facility] 12/26/2022 09:42:05 11/05/2023 text/html CoughReported by PatientHPIFor quality, patient reportsproductive coughanddry and wetbut reportssymptoms worse with lying down. For source of patient information, patient reportsinformation obtained from patientandpatient arrived at urgent care ambulatory. For severity, patient reportsmoderate. For duration, patient reports3 days. For timing, patient reportsgradual. For context, patient reportspatient denies vaping,non-smoker, andfamily members ill with similar symptoms. For modifying factors, patient reportsat night. For associated symptoms, patient reportsno fever,no chills,no chest pain,no heartburn,no nausea,no vomiting,no edema,no agitation,no wheezing, andno post nasal drip. Patient presents with bilateral ear pain , x 3 days productive cough with mucous getting darker, feeling feverish at night/night sweats, had sore neck from gagging, tired. Sore throat with swallowing Mili Rosales NP [address] [place], [address], [place] - [facility] 11/22/2023 15:16:33 OBGyn Episode No OBEpisode recorded.
== END 2025-11-22 10:34 | disposition home or self-care (01) ==
LOC: HO.HSMS 09:30
PROVIDERS: PCP Internal Medicine; Visit Provider Nurse Practitioner Family
DX: G43.009 Migraine without aura, not intractable, without status migrainosus (principal); G62.89 Other specified polyneuropathies; M26.609 Unspecified temporomandibular joint disorder, unspecified side; F90.2 Attention-deficit hyperactivity disorder, combined type
CPT/HCPCS: 99214

== ENCOUNTER 2025-11-29 09:25 | Outpatient (AMB) | payer BC, SELFPAY ==
--- OUTSIDE RECORDS SUMMARY | 2025-11-29 09:42 | XMS_ITS | Encounter Summary ---
Author Organization [facility] Prior to 09/30/2024 Address [address] [place] [address] Care Team Providers Care Assembler Trim Name Role Phone Moreno Barron MD Primary Care Provider [phone] Encounter Details Date Type Department Care Team Description 03/29/2024 Pt. Non Urgent Medical Question OBGYN - [address] [facility] [address] [place] [phone] Sanaz Posadas, CAR [address] [place] [phone] Social History Tobacco Use Types Packs/Day Years Used Date Smoking Tobacco: Never Smokeless Tobacco: Never Alcohol Use Standard Drinks/Week Comments Yes 0 (1 standard drink = 0.6 oz pur e alcohol) occ Sex Assigned at Date Recorded Female 09/25/2022 6:07 PM E DT Job Start Date Occupation Industry Not on file Not on file Not on file documented as of this encounter Plan of Treatment Not on file documented as of this encounter Visit Diagnoses Not on filedocumented in this encounter Care Teams Assembler Trim Relationship Specialty Start Date End Date Moreno Barron MD [address] [place] [address] PCP - General Internal Medicine 08/16/15 documented as of this encounter
--- OUTSIDE RECORDS SUMMARY | 2025-11-29 09:42 | XMS_ITS | Encounter Summary ---
Author Organization [facility] Prior to 09/30/2024 Address [address] [place] [address] Care Team Providers Care Hot Mill Supervisor Name Role Phone Bailey Holt MD Primary Care Provide Moreno Watson MD Primary Care Provider [phone] Encounter Details Date Type Department Care Team Description 04/20/2012 Certified Veterinary Technician Report Medical Records [address] [place] [address] Elma Tyler MD Social History Tobacco Use Types Packs/Day Years Used Date Smoking Tobacco: Never Alcohol Use Standard Drinks/Week Comments [...] on filedocumented in this encounter Care Teams Hot Mill Supervisor Relationship Specialty Start Date End Date Bailey Holt MD PCP - General 06/05/199707/31 Moreno Barron MD [address] [place] [address] PCP - General Internal Medicine 08/16/15 documented as of this encounter
--- OUTSIDE RECORDS SUMMARY | 2025-11-29 09:42 | XMS_ITS | Encounter Summary ---
Author Organization [facility] Prior to 09/30/2024 Address [address] [place] [address] Care Team Providers Care Unemployment Benefits Claims Taker Name Role Phone Moreno Barron MD Primary Care Provider [phone] Encounter Details Date Type Department Care Team Description 05/02/2021 Pt. Non Urgent Medical Question OBGYN - [address] [facility] [address] [place] [phone] Sanaz Posadas, [facility] [address] [place] [phone] Social History Tobacco Use Types Packs/Day Years Used Date Smoking Tobacco: Never Smokeless Tobacco: Never Alcohol Use Standard Drinks/Week Comments Yes 0 (1 standard drink = 0.6 oz pur e alcohol) occ Sex Assigned at Date Recorded Female 09/25/2022 6:07 PM E DT Job Start Date Occupation Industry Not on file Not on file Not on file COVID-19 Exposure Response Date Recorded In the last month, have you been in contact with someone who was confirmed or suspected to have Coronavirus / COVID-19? No / Unsure 04/22/2021 8:39 AM EDT documented as of this encounter Plan of Treatment Not on file documented as of this encounter Visit Diagnoses Not on filedocumented in this encounter Care Teams Unemployment Benefits Claims Taker Relationship Specialty Start Date End Date Moreno Barron MD [address] [place] [address] PCP - General Internal Medicine 08/16/15 documented as of this encounter
--- OUTSIDE RECORDS SUMMARY | 2025-11-29 09:42 | XMS_ITS | Encounter Summary ---
Author Organization [facility] Prior to 09/30/2024 Address [address] [place] [address] Care Team Providers Care Instructor Looping Name Role Phone Bailey Holt MD Primary Care Provide Moreno Watson MD Primary Care Provider [phone] Encounter Details Date Type Department Care Team Description 01/29/2015 [facility] Medical Records [address] [place] [address] Norman Thomas MD Social History Tobacco Use Types Packs/Day [...] on filedocumented in this encounter Care Teams Instructor Looping Relationship Specialty Start Date End Date Bailey Holt MD PCP - General 06/05/199707/31 Moreno Barron MD [address] [place] [address] PCP - General Internal Medicine 08/16/15 documented as of this encounter
--- OUTSIDE RECORDS SUMMARY | 2025-11-29 09:42 | XMS_ITS | Clinical Summary ---
Author Organization [facility] Address [address] [place] [address] Care Team Providers Care Leather Lacer Name Role Phone Unavailable Primary Care Provider [...]
--- OUTSIDE RECORDS SUMMARY | 2025-11-29 09:42 | XMS_ITS | Encounter Summary ---
Author Organization [facility] Prior to 09/30/2024 Address [address] [place] [address] Care Team Providers Care Hand Former Helper Name Role Phone Moreno Barron MD Primary Care Provider [phone] Encounter Details Date Type Department Care Team Description 01/29/2021 Pt. Referral Request [address] [address] Md Huang Social History Tobacco Use Types Packs/Day Years [...] on filedocumented in this encounter Care Teams Hand Former Helper Relationship Specialty Start Date End Date Moreno Barron MD [address] [place] [address] PCP - General Internal Medicine 08/16/15 documented as of this encounter
--- OUTSIDE RECORDS SUMMARY | 2025-11-29 09:42 | XMS_ITS | Encounter Summary ---
Author Organization [facility] Prior to 09/30/2024 Address [address] [place] [address] Care Team Providers Care Encapsulator Name Role Phone Moreno Barron MD Primary Care Provider [phone] Encounter Details Date Type Department Care Team Description 08/08/2020 Pt. Non Urgent Medical Question OBGYN - [address] [facility] [address] [place] [phone] Sanaz Posadas CNM [address] [place] [phone] Social History Tobacco Use Types Packs/Day Years [...] encounter Miscellaneous Notes * Telephone Encounter - Jnu Ribeiro MA. - 08/09/2020 8:22 AM EDTFrom: Tammy Naqvi To: Sanaz Posadas CNM Sent: 08/08/2020 5:41 PM EDT Subject: Insurance requesting prescription modification [employer] handles my insurance in regards to prescriptions. I received notification from themthat I *might* be required to pay for beyaz in full if I don???t switch to a 3 month supply insteadof the standard one month. Is it possible to be subscribed 3 mos at a time? About a ye ar ago [facility] dropped my coverage at [facility]ies, and I had to pay in full without any prior notice.If possible, I???d like to avoid a similar situation by complying with their request. documented in this encounter Plan of Treatment Not on file documented as of this encounter Visit Diagnoses Not on filedocumented in this encounter Care Teams Encapsulator Relationship Specialty Start Date End Date Moreno Barron MD [address] [place] [address] PCP - General Internal Medicine 08/16/15 documented as of this encounter
--- OUTSIDE RECORDS SUMMARY | 2025-11-29 09:42 | XMS_ITS | Encounter Summary ---
Author Organization [facility] Prior to 09/30/2024 Address [address] [place] [address] Care Team Providers Care Radiological Equipment Specialist Name Role Phone Moreno Barron MD Primary Care Provider Encounter Details Date Type Department Care Team Description 05/14/2016 Pt. Non Urgent Medical Question Adult Medicine [address] [address] Moreno Barron MD [address] [place] [address] Social History Tobacco Use Types Packs/Day Years Used Date Smoking Tobacco: Never Smokeless Tobacco: Never Alcohol Use Standard Drinks/Week Comments No 0 (1 standard drink = 0.6 oz pur e alcohol) Sex Assigned at Date Recorded Female 09/25/2022 6:07 PM E DT Job Start Date Occupation Industry Not on file Not on file Not on file documented as of this encounter Progress Notes * Dafne Lobo L.P.N. - 05/14/2016 3:56 PM EDTFrom: Tammy S Driss To: Moreno Barron MD Sent: 05/14/2016 2:54 PM EDT Subject: Blood Type Is my blood type on file anywhere? If it's not, can I schedule having a test done? documented in this encounter Plan of Treatment Not on file documented as of this encounter Visit Diagnoses Not on filedocumented in this encounter Care Teams Radiological Equipment Specialist Relationship Specialty Start Date End Date Moreno Barron MD [address] [place] [address] PCP - General Internal Medicine 08/16/15 documented as of this encounter
--- OUTSIDE RECORDS SUMMARY | 2025-11-29 09:42 | XMS_ITS | Encounter Summary ---
Author Organization [facility] Prior to 09/30/2024 Address [address] [place] [address] Care Team Providers Care Stoneworking Belt Sander Name Role Phone Moreno Barron MD Primary Care Provider [phone] Encounter Details Date Type Department Care Team Description 05/12/2016 Orders Only Adult Medicine [facility] [address] [place] [address] Jeanette Rae, LAW TUTOR [address] [place] [address] Proteinuria (Primary Dx) Social History Tobacco Use Types Packs/Day Years Used Date Smoking Tobacco: Never Smokeless Tobacco: Never Alcohol Use Standard Drinks/Week Comments No 0 (1 standard drink = 0.6 oz pur e alcohol) Sex Assigned at Date Recorded Female 09/25/2022 6:07 PM EDT Job Start Date Occupation Industry Not on file Not on file Not on file documented as of this encounter Plan of Treatment Not on file documented as of this encounter Results * (ABNORMAL) URINALYSIS, COMPLETE (05/12/2016 10:41 AM EDT) SPECIFIC GRAVITY, URINE 1.036(H) 1.005 - 1.030 05/12/2016 2:45 PM EDT [facility] PH, URINE 6.0 5 - 8 05/12/2016 2:21 PM EDT [facility] PROTEIN, URINE 30(A) <=TRACE mg/dL 05/12/2016 2:21 PM EDT [facility] GLUCOSE, URINE (UA) NEGATIVE NEGATIVE mg/dL 05/12/2016 2:21 PM EDT [facility] KETONE, URINE NEGATIVE NEGATIVE mg/dL 05/12/2016 2:21 PM EDT [facility] BILIRUBIN URINE NEGATIVE NEGATIVE 05/12/2016 2:21 PM EDT [facility] UROBILINOGEN, URINE 0.2 0.2 - 1.0 E.U./dL 05/12/2016 2:21 PM EDT [facility] BLOOD, URINE MODERATE(A) NEGATIVE 05/12/2016 2:21 PM EDT [facility] NITRITE,URINE NEGATIVE NEGATIVE 05/12/2016 2:21 PM EDT [facility] LEUKOCYTE ESTERASE, URINE NEGATIVE NEGATIVE 05/12/2016 2:21 PM EDT [facility] RBC-Urine 0-1 0 - 4 /hpf 05/12/2016 3:31 PM EDT [facility] WBC, URINE 5-10(A) 0 - 4 /hpf 05/12/2016 3:31 PM EDT [facility] EPITHELIAL CELLS URINE 5-10 0 - 60 05/12/2016 3:31 PM EDT [facility] MUCUS, URINE MODERATE 05/12/2016 3:32 PM EDT [facility] 05/12/2016 10:4 1 AM EDT 05/12/2016 10:41 AM EDT Jeanette Rae LAW TUTOR LAB Performing Organization Address City/State/[facility] de Phone Number [facility] [address] [facility] documented in this encounter Visit Diagnoses Diagnosis Proteinuria- Primary documented in this encounter Care Teams Stoneworking Belt Sander Relationship Specialty Start Date End Date Moreno Barron MD [address] [place] [address] PCP - General Internal Medicine 08/16/15 documented as of this encounter
--- OUTSIDE RECORDS SUMMARY | 2025-11-29 09:42 | XMS_ITS | Encounter Summary ---
Author Organization [facility] Prior to 09/30/2024 Address [address] [place] [address] Care Team Providers Care Pitching Coach Name Role Phone Moreno Barron MD Primary Care Provider [phone] Encounter Details Date Type Department Care Team Description 08/22/2023 Transfer Records Medical Records [address] [place] [address] Abstract, Provider Social History Tobacco Use Types Packs/Day Years [...] on filedocumented in this encounter Care Teams Pitching Coach Relationship Specialty Start Date End Date Moreno Barron MD [address] [place] [address] PCP - General Internal Medicine 08/16/15 documented as of this encounter
--- OUTSIDE RECORDS SUMMARY | 2025-11-29 09:42 | XMS_ITS | Encounter Summary ---
Author Organization [employer] [facility] Prior to 09/30/2024 Address [address] [place] [address] Care Team Providers Care Property And Equipment Clerk Name Role Phone Moreno Barron MD Primary Care Provider [phone] Encounter Details Date Type Department Care Team Description 03/02/2018 [facility] Controlled Substance Contract Medical Records [address] [place] [id number] Abstract, Provider Social History Tobacco Use Types [...] on filedocumented in this encounter Care Teams Property And Equipment Clerk Relationship Specialty Start Date End Date Moreno Barron MD [address] [place] [address] PCP - General Internal Medicine 08/16/15 documented as of this encounter
--- OUTSIDE RECORDS SUMMARY | 2025-11-29 09:42 | XMS_ITS | Clinical Summary ---
Author Organization [facility] Address [address] [place] [address] Phone Care Team Providers Care Billing Auditor Name Role Phone Ca Ordoñez Primary Care Provider Ca Ordoñez Unavailable [phone] Bailey Holt MD Unavailable Reynold Draper MD Unavailable [phone] Allergies Active Allergy Reactions Criticality Noted Date [...] Info) Description 02/09/2026 10:00 AM EDT Appointment [facility] [address] [place] [phone] 02/09/2026 11:00 AM EDT Appointment [facility] [address] [place] [phone] Reynold Draper MD [address] [place] [address] Health Maintenance Due Date Last Done Comments [...] Insurance - OOS - OOS Care Teams Billing Auditor Relationship Specialty Start Date End Date Ca Ordoñez [address] [place] [address] PCP - General 10/07/23 aC Ordoñez [address] [place] [address] PCP - Clinical PCP 10/07/23 Bailey Holt MD [address] [place] [address] PCP - Insurance PCP 02/24/06 Reynold Draper MD [address] [place] [address] Word Processing Specialist 04/30/24
--- OUTSIDE RECORDS SUMMARY | 2025-11-29 09:42 | XMS_ITS | Encounter Summary ---
Author Organization [facility] Prior to 09/30/2024 Address [address] [place] [address] Care Team Providers Care Educational Program Director Name Role Phone Moreno Barron MD Primary Care Provider Reason for Visit * Reason Onset Date Comments Medication 06/09/2018 Encounter Details Date Type Department Care Team Description 06/09/2018 Pt. Non Urgent Medical Question Adult Medicine [address] [address] Mary Killian FNP Social History Tobacco Use Types Packs/Day Years [...] as of this encounter Progress Notes * Laura Muller L.P.N. - 06/10/2018 7:51 AM EDTFrom: Tammy Navqi To: KESHIA Barajas Sent: 06/09/2018 6:24 PM EDT Subject: Stopped taking fiorecet Mary Sprague. I stopped taking fiorecet within the past couple of weeks because it hasn't helped my migraines at all. Tylenol has worked better. I also got a daith piercing, so that's been helping a lot. I just wanted to let you know that I don't want to continue with the prescriptions so that I don't get calledin for a random drug test again. Thanks. Tammy documented in this encounter Plan of Treatment Not on file documented as of this encounter Visit Diagnoses Not on filedocumented in this encounter Care Teams Educational Program Director Relationship Specialty Start Date End Date Moreno Barron MD [address] [place] [address] PCP - General Internal Medicine 08/16/15 documented as of this encounter
--- OUTSIDE RECORDS SUMMARY | 2025-11-29 09:42 | XMS_ITS | Encounter Summary ---
Author Organization [facility] [facility] Prior to 09/30/2024 Address [address] [place] [address] Care Team Providers Care Digital Specialist Name Role Phone Moreno Barron MD Primary Care Provider [phone] Encounter Details Date Type Department Care Team Description 06/25/2020 Pt. Non Urgent Medical Question OBGYN - [address] [facility] [address] [place] [phone] Sanaz Posadas CNM [address] [place] [phone] Social History Tobacco Use Types Packs/Day Years [...] encounter Miscellaneous Notes * Telephone Encounter - Deepti Parnell R.N. - 06/25/2020 10:37 AM EDTFrom: Tammy Naqvi To: Sanaz Posadas CNM Sent: 06/25/2020 10:32 AM EDT Subject: General question Hi. For some reason the phone number in your office isn???t working. I was a [facility] patient before they merged with [facility]. If I remove [facility], will I be able to be treated in this office? This is the only obgyn that???s taken myproblems seriously. documented in this encounter Plan of Treatment Not on file documented as of this encounter Visit Diagnoses Not on filedocumented in this encounter Care Teams Digital Specialist Relationship Specialty Start Date End Date Moreno Barron MD [address] [place] [address] PCP - General Internal Medicine 08/16/15 documented as of this encounter
--- OUTSIDE RECORDS SUMMARY | 2025-11-29 09:42 | XMS_ITS | Encounter Summary ---
Author Organization [facility] Prior to 09/30/2024 Address [address] [place] [address] Care Team Providers Care Bilingual Legal Assistant Name Role Phone Moreno Barron MD Primary Care Provider [phone] Reason for Visit * Reason Onset Date Comments Prior Authorization 09/17/2021 Pimecrolimus 1% Cream Encounter Details Date Type Department Care Team Description 09/17/2021 Telephone Dermatology - [address] [phone] Sharon Winter PA-C Prior Authorization (Pimecrolimus 1% Cream) Social History Tobacco Use Types Packs/Day Years [...] have Coronavirus / COVID-19? No / Unsure 09/17/2021 8:07 AM EDT documented as of this encounter Miscellaneous Notes * Telephone Encounter - Caroline Lawler M.A. - 09/17/2021 3:30 PM EDT Approval for Pimecrolimus 0.1% cream. Approved from 09/17/2021-09/17/2022. [facility] Pharm[facility] notified by fax. * Telephone Encounter - Caroline Lawler M.A. - 09/17/2021 2:03 PM EDT Prior authorization for Pimecrolimus 1% cream done on CMM. * Telephone Encounter - Marysol Bains - 09/17/2021 9:17 AM EDT Prior Authorization for Medication-do not complete and send this encounter unless you have the fax from the pharmacy. Is this a Cover My Meds request: Yes -- [place] Code [id number] Name of Medication Pimecrolimus 1% Cream Dose of Medication What is the RX # from the faxed refill? How does patient take this med? What Pharmacy did the fax come from: [facility] fax #: [phone] [employer] Information from fax: What Prescription Plan does the patient have? BIN/PCN if applicable: Cardholder ID: Person Code: Relationship Code: Help desk phone: documented in this encounter Plan of Treatment Not on file documented as of this encounter Visit Diagnoses Not on filedocumented in this encounter Care Teams Bilingual Legal Assistant Relationship Specialty Start Date End Date Moreno Barron MD [address] [place] [address] PCP - General Internal Medicine 08/16/15 documented as of this encounter
--- OUTSIDE RECORDS SUMMARY | 2025-11-29 09:42 | XMS_ITS | Encounter Summary ---
Author Organization [facility] Prior to 09/30/2024 Address [address] [place] [address] Care Team Providers Care Marine Firefighter Name Role Phone Moreno Barron MD Primary Care Provider [phone] Encounter Details Date Type Department Care Team Description 06/19/2021 Pt. Non Urgent Medical Question OBGYN - [address] [facility] [address] [place] [phone] Sanaz Posadas, CAR [address] [place] [phone] Social History Tobacco Use Types Packs/Day Years [...] on filedocumented in this encounter Care Teams Marine Firefighter Relationship Specialty Start Date End Date Moreno Barron MD [address] [place] [address] PCP - General Internal Medicine 08/16/15 documented as of this encounter
--- OUTSIDE RECORDS SUMMARY | 2025-11-29 09:42 | XMS_ITS | Clinical Summary ---
Author Organization [facility] Address [address] [place] [address] Phone Care Team Providers Care Nurse Substance Abuse Name Role Phone Moreno Barron MD Primary Care Provider [phone] Allergies Active Allergy Reactions Criticality Noted Date [...] PM EDT Hospital Encounter Radiology Department - [address] [address] Breast skin changes Discharge Disposition: Home or Self Care 09/19/2025 9:40 AM EDT - 09/19/2025 11:59 PM EDT Hospital Encounter Radiology Department - [address] [phone] Breast skin changes Discharge Disposition: Home or Self Care 09/19/2025 Results Follow-Up [facility]st[facility]s [facility]ne[facility] [address] [place] [address] Erlinda Rowell DO from Last 3 Months Immunizations Immunization Administration Dates Next Due DTP 05/19/1996, 5,1995,03/26 DTaP (Infanrix) 6wks to less than 7yo 08/11/2000 [id number] (Pentacel) 2mo to less than 5yo 05/19/1996,1995,1995,03/26 [...] SURGERY 1999 PROCEDURE: HISTORICAL HEART SURGERY(ASD,VSD,VALVES); COMMENT: [facility] OTHER SURGICAL HISTORY 2014 N/A PROCEDURE: [place] EXCISION PILONIDAL CYST/SINUS COMPLICATED Medical History Medical [...] 12/26/2025 10:00 AM EST Appointment Radiology Department [address] [phone] Health Maintenance Due Date Last Done Comments [...] of left breast is recommended. Mammo Location: [facility], [address] [place] [address], [address], . -------- FINAL REPORT -------- Dictated By: Hannah Ivey Dictated Date: 09/19/2025 10:33 ET Assigned Physician: Hannah Ivey Reviewed and Electronically Signed By: Hannah Ivey Signed Date: 09/19/2025 10:42 ET Workstation ID: [id number] Transcribed By: Self Edit Transcribed Date: 09/19/2025 [...] with her provider as well as his caustic purification operator in regards to discoloration of the skin. [...] of left breast is recommended. Mammo Location: [facility], [address] [place] [address], [address], . -------- FINAL REPORT -------- Dictated By: Hannah Ivey Dictated Date: 09/19/2025 10:33 ET Assigned Physician: Hannah Ivey Reviewed and Electronically Signed By: Hannah Ivey Signed Date: 09/19/2025 10:42 ET Workstation ID: [id number] Transcribed By: Self Edit Transcribed Date: 09/19/2025 [...] with her provider as well as his caustic purification operator in regards to discoloration of the skin. Erlinda Rowell DO IMG BI PROCEDURES Final Resul t * Cervical Cancer Screening: HPV (03/29/2024) [facility] Cervical Cancer Screening: HPV Negative, Abstracted Historical Provider HEALTH MAINTENANCE Final Result * Lipid panel (07/05/2021) [facility] LDL/HDL Ratio 3 0 - 4 Triglycerides 118 0 - 150 mg/dL Cholesterol 174 0 - 200 mg/dL HDL 67 >=40 mg/dL LDL Cholesterol 84 0 - 100 mg/dL Blood Venous blood specimen / Unknown us Historical Provider LAB BLOOD ORDERABLES Amy arndt Result from Last 3 Months or Most Recently Relevant to Health Maintenance Insurance [employer] [facility] (ON LICENSE OF [facility]) Care Teams Nurse Substance Abuse Relationship Specialty Start Date End Date Moreno Barron MD [address] [place] [address] PCP - General Internal Medicine 08/01/25
--- OUTSIDE RECORDS SUMMARY | 2025-11-29 09:42 | XMS_ITS | Encounter Summary ---
Author Organization [facility] Prior to 09/30/2024 Address [address] [place] [address] Care Team Providers Care Barn Hand Name Role Phone Moreno Barron MD Primary Care Provider [phone] Reason for Visit * Reason Onset Date Comments Call From Office 11/21/2016 Encounter Details Date Type Department Care Team Description 11/21/2016 Telephone Adult Medicine [address] [address] Moreno Barron MD [address] [place] [address] Call From Office Social History Tobacco Use Types Packs/Day Years [...] encounter Miscellaneous Notes * Telephone Encounter - Jhonatan Ambriz Tiff - 11/21/2016 2:56 PM EST Caller requesting call back from provider: Is the caller the patient? NO If caller is not the patient, what is the callers name? N/A Callers relationship to patient? N/A If person calling is not the patient themselves, is there a verbal release in FYI or permanent comments for this person: NO Reason for call back: Connie from [facility] calling, states pt has made an appt for headaches for 12/02/16. Connie states pt claims to have seen Dr. Barron for theadaches and would like theoffice notes to be faxed to [phone]. If you have any questions please call Connie back. Caller offered to speak with the nurse for assistance: YES Response: Patient offered to speak with nurse for assistance and patient agreed. Message forwarded to nurse. documented in this encounter Plan of Treatment Not on file documented as of this encounter Visit Diagnoses Not on filedocumented in this encounter Care Teams Barn Hand Relationship Specialty Start Date End Date Moreno Barron MD [address] [place] [address] PCP - General Internal Medicine 08/16/15 documented as of this encounter
--- OUTSIDE RECORDS SUMMARY | 2025-11-29 09:42 | XMS_ITS | Encounter Summary ---
Author Organization [facility] Prior to 09/30/2024 Address [address] [place] [address] Care Team Providers Care Crystallographer Name Role Phone Moreno Barron MD Primary Care Provider [phone] Encounter Details Date Type Department Care Team Description 03/25/2021 Telephone OBGYN - 271 [facility] [address] [place] [phone] Sanaz Posadas, CAR [address] [place] [phone] Social History Tobacco Use Types Packs/Day Years [...] on filedocumented in this encounter Care Teams Crystallographer Relationship Specialty Start Date End Date Moreno Barron MD [address] [place] [id number] PCP - General Internal Medicine 08/16/15 documented as of this encounter
--- NOTE | 2025-11-29 09:46 | A.OFFVIS_ITS ---
Vital Signs 11/29/25 09:47 Height 5 ft 9 in Weight 181 lb BMI 26.7 BP 116/68 Blood Pressure Location Rt brachial Position Sitting Pulse 80 Pulse Source Pulse Oximeter Pulse Oximetry (%) 99 Oxygen Delivery Method Room Air Intake Visit Reasons: 6 mo f/u IBS, LLQ pain, diverticulosis Intake Note: Est pt for mgmt of IBS w/ chronic abd pain. CC; C/O LUQ pain burning persistence. Pt reports that she has been taking OTC fiber gummies and has had to decrease the frequency with which she takes them because she notices increased pain with daily use. Scrip Clerk Required: No Accompanied by: Self / Same As Patient Allergies environmental allergies Allergy (Unknown, Verified 11/29/25 09:46) Unknown house dust Allergy (Unknown, Verified 11/29/25 09:46) Unknown pollen extracts Allergy (Unknown, Verified 11/29/25 09:46) Unknown Sulfa (Sulfonamide Antibiotics) Allergy (Verified 11/29/25 09:46) Unknown topiramate Allergy (Verified 11/29/25 09:46) Unknown atomoxetine Adverse Reaction (Verified 11/29/25 09:46) tinnitus HPI HPI 6 mo f/u IBS, LLQ pain, diverticulosis: Details: LAST VISIT: Anemia, pernicious Nausea & vomiting Postprandial diarrhea Postprandial epigastric pain Plan Continue avoiding dietary triggers and late night snacking. Staying upright for minimum 3 hours after meals discussed with patient. Low FODMAP diet recommended as we discussed last visit. Avoid triggers. Colonoscopy at age 45, sooner if clinically necessary. Patient will follow-up in the office in 6 months, sooner on as needed basis. She is agreeable to this plan and verbalizes understanding of instructions. She was given the opportunity to ask questions and all questions answered. ? Thank you for allowing me to participate in her care TODAY'S VISIT: Patient is here today for follow-up. Patient reports that she has been feeling little better, however still experiencing postprandial abdominal bloating. Patient reports that she was taking fiber gummies daily and reports that she had bloating and cramping. Now patient is taking every couple days. Patient reports that when she tries to follow low FODMAP diet she is doing better. Patient denies any melena, hematochezia, unintentional weight loss or ribbon like stools. Patient denies heartburn, dyspepsia, dysphagia or odynophagia. 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, unspecified Obstruction of nasal valve Disturbance of sleep Vitamin D deficiency Vitamin B12 deficiency TMJ (temporomandibular joint disorder) Bruxism (teeth grinding) Chronic headaches Allergic rhinitis Hx of epistaxis ADHD VSD (ventricular septal defect) ASD (atrial septal defect) Depression with anxiety Surgical History Hx of atrial septal defect repair Hx of ventricular septal defect repair History of surgical removal of pilonidal cyst Family History Father Mental health disorder HTN (hypertension) Mother HTN (hypertension) IBS (irritable bowel syndrome) Sister Anxiety Depression Social History Housing: House Alcohol intake: current Alcohol intake frequency: a few times a month Patient Tobacco Use Status: Never used Tobacco e-Cigarette/Vaping Use: Never Used Current occupational status: employed Cognitive needs: No Hearing needs: No Vision needs: Yes Review of Systems Const Denies weight gain and Denies weight loss ENT Reports no additional complaints, Denies dysphagia and Denies odynophagia Card Reports no additional complaints Resp Reports no additional complaints GI Reports abdominal pain (LUQ), Denies belching, Denies melena, Reports bloating, Denies change in bowel habits, Reports tenesmus (Postprandially), Reports constipation, Denies dysphagia, Denies excessive flatus, Denies dyspepsia, Reports heartburn (Occasional), Denies diarrhea, Reports loose stools, Denies nausea, Denies odynophagia and Denies vomiting Reports no additional complaints Musc Reports no additional complaints Neuro Reports no additional complaints Psych Reports no additional complaints Endo Reports no additional complaints Physical Exam Vital Signs: Last Vital Signs Pulse 80 11/29/25 09:47 BP 116/68 11/29/25 09:47 Pulse Ox 99 11/29/25 09:47 Oxygen Delivery Method Room Air 11/29/25 09:47 BMI result Body Mass Index 26.7 Assessment & Plan Assessment & Plan (1) Anemia, pernicious: Code(s): D51.0 - Vitamin B12 deficiency anemia due to intrinsic factor deficiency Category: Medical (2) Postprandial diarrhea: Code(s): K52.9 - Noninfective gastroenteritis and colitis, unspecified (3) Postprandial epigastric pain: Code(s): R10.13 - Epigastric pain Plan Patient will continue follow low FODMAP diet. Will check lipase and vitamin-D. Continue fiber. Follow-up in 6 months. Patient was encouraged to call us if she will have any GI concerning symptoms. He is agreeable to this plan and verbalizes understanding of instructions. She was given the opportunity to ask questions and all questions answered. Thank you for allowing me to participate in her care Orders: Orders Lipase 11/29/25 R10.9 - Unspecified abdominal pain Vitamin D 25-OH (D2 and D3) 11/29/25 E55.9 - Vitamin D deficiency, unspecified Coding Level of Care Code Est Pt Level 3 (02682) Diagnoses Anemia, pernicious D51.0 Postprandial diarrhea K52.9 Postprandial epigastric pain R10.13 Time Spent (min) 30 Comment 20 minutes spent with patient and additional 10 minutes spent reviewing her records
[2025-11-29 09:47] VITALS: BP 116/68; PULSE 80; O2SAT 99; BMI 26.7
== END 2025-11-29 10:12 | disposition home or self-care (01) ==
LOC: HO.HGI 09:26
PROVIDERS: PCP Internal Medicine; Visit Provider Nurse Practitioner Family
DX: D51.0 Vitamin B12 deficiency anemia due to intrinsic factor deficiency (principal); K52.9 Noninfective gastroenteritis and colitis, unspecified; R10.13 Epigastric pain
CPT/HCPCS: 99213

== ENCOUNTER 2025-11-29 09:25 | Outpatient (REF) | payer BC, SELFPAY ==
[2025-11-29 11:16] LABS: Lipase 28 U/L (8-78)
--- OUTSIDE RECORDS SUMMARY | 2025-11-29 11:24 | XMS_ITS | Data Portability ---
Author Organization [place] - [facility], Allergy Address [address] [address] Care Team Providers Care Watch Manufacturing Supervisor Name Role Phone ASHLIE VIDHI Primary Care [...] e 1 % topical solution 2023 024 [id number], [address] [place], [address], 4 15:58:30 clotrimazol e-betametha sone 1 %-0.05 % topical cream 2023 024 [id number], [address] [place], [address], 4 15:58:29 Patient TargetsNo targets recorded. Patient InstructionsNo instructions recorded. Reason for Referral None Reported. Problems Name Problem SNOMED Code Status Onset Date Resolution Date Notes Provider Name and Address Organization Details Recorded Time Bleeding from nose 437508458 Active 2019 Epistaxis ; Note: Date Diagnosed : 04/04/2020 2:56 PM (R04.0) Not Available [facility] 4 03:13:37 Allergic rhinitis 21029010 Active 2020 Other allergic rhinitis; Note: Date Diagnosed : 03/19/2021 11:28 AM (J30.89) Not Available [facility] 4 03:13:37 Diffuse otitis externa 22102763 Active 2023 Emy proctor [place] - [facility] 4 15:55:37 Itching of skin 667108310 Active 2023 Emy proctor [place] - [facility] 4 12:04:54 Seasonal allergic rhinitis 146131548 Active 2023 DEBORAH BRISENO MD [address] [place] [address], [place], [address] , [facility] - [facility] 4 08:57:54 Problem Notes None recorded. Medical Equipment None Reported. Allergies Allergen ID Allergen Name Allergen Category Reaction Reaction Severity Criticality Documentation Date Start Date Code Code System Note Provider Name and Address Organization Details Recorded Time 807820 aspirin medicatio n other Not available Not available 04/12/2024 1191 RxNorm React ion: unkno wn, unspe cifie d;; Not Available [facility] 4 01:19:09 327588 Substance with sulfonami de structure and antibacte rial mechanism of action (substanc e) medicatio n other Not available Not available 04/12/2024 20862 8003 SNOMED React ion: unkno wn, unspe cifie d;; Not Available [facility] 4 01:19:10 Medications Name Sig Start Date Stop Date Status Note LastModified by Organization Details LastModified Time amoxicill in 500 mg capsule TAKE 1 CAPSULE BY MOUTH TWICE A DAY active Not Available Not Available No t Available acetic acid 2 % ear solution 03/19 completed Medicati on ID: [id number] B rand Name: acetic acid Sen d Method: E-Prescr ibed Sub s Allowed: subs OK Medic ationGen ericName : acetic acid Not Available Not Available Not Available citalopra m 40 mg tablet 1 tablet by mouth 2020 active Medicati on ID: [id number] B rand Name: citalopr am Send Method: [...] dental gel 03/19 completed Medicati on ID: [id number] B rand Name: SF Send Method: E-Prescr ibed Sub s Allowed: subs OK Medic ationGen ericName : SF Not Available Not Available Not Available amoxicill in 500 mg tablet TAKE 1 TABLET BY MOUTH EVERY 6 HOURS UNTIL GONE active Not Available Not Available No t Available ofloxacin 0.3 % ear drops 04/24 completed Medicati on ID: [id number] B rand Name: ofloxaci n Send Method: [...] mg tablet 03/19 completed Medicati on ID: [id number] D uration Value: 90 Brand Name: paroxeti [...] mg tablet 03/19 completed Medicati on ID: [id number] D uration Value: 30 Brand Name: ibuprofe [...] mg tablet 03/19 completed Medicati on ID: [id number] D uration Value: 28 Brand Name: Alyssa [...] as needed 2023 active Medicati on ID: [id number] D uration Value: 1 Brand Name: EpiPen 2-Vasiliy Se nd Method: E-Prescr ibed Sub s Allowed: subs OK Medic ationGen ericName : EpiPen 2-Vasiliy Not Available Not Available Not Available Emgality Pen 120 mg/mL subcutane ous pen injector PLEASE SEE ATTACHED FOR DETAILED DIRECTIO NS active Not Available Not Available No t Available Flucelvax Quad 03/19 completed Medicati on ID: [id number] D uration Value: 1 Brand Name: Flucelva [...] Updated DateTime 06/07/2024 175.26 cm 25.8 kg/m2 53764.66 g Nancy Mays [place] - [facility] 06/07/2024 15:27:01 Date Recorded Body height Body mass index (BMI) Body weight Provider Name and Address Organization Details Last Updated DateTime 07/07/2024 175.26 cm 25.8 kg/m2 77506.66 g Nancy Mays [place] - [facility] 07/07/2024 11:08:29 Date Recorded Body height Body mass index (BMI) Body weight Provider Name and Address Organization Details Last Updated DateTime 09/19/2024 175.26 cm 24.4 kg/m2 34553.74 g Elif Nieves [place] - [facility] 09/19/2024 08:42:20 Social History None recorded. [...] Note [id number] EMY GAMBLE PA-C [facility] on [address] [facility] [place] [address] 06/07/2024 15:03:57 06/07/2024 15:48:34 Diffuse otitis externa 64062355 H60.311 [id number] EMY GAMBLE PA-C [facility] on [address] [place] [address], [place] [address] 07/07/2024 10:59:06 07/07/2024 13:00:56 Itching of skin 205740845 L29.9 [id number] DEBORAH BRISENO MD [facility] [address] [address] 09/19/2024 08:39:00 09/19/2024 08:57:42 Seasonal allergic rhinitis 327504307 J30.2 The patient is benefiting from immunother [...] ID Guarantor Name 10/04/2024 1 CAITLIN (PPO) [id number] 2 Tammy Naqvi [id number] 66 Tammy Naqvi Notes Date Note Type [...] treatment for TMJ. HARMAN LLAMAS MD [address] [place] [address], [address], [facility] - [facility] 06/08/2024 07:44:48 07/07/2024 text/html ROS as noted in the HPI 29 year old female with a history of dermatitis presents today for follow up for bilateral fungal OE. She used the clotrimazole drops and Lotrisone cream which helped. Then she used the vinegar and this made her ear flaky again. Emy proctor [place] - [facility] 07/07/2024 12:08:31 09/19/2024 text/html ROS as noted in the [facility] allergiesShe has been receiving SLIT since 06/19. She notes improvement in her allergy symptoms in general. Did have a sinus infection which required prednisone a couple weeks ago. Has some itching under her tongue when she administers the allergy drops but no swelling or systemic reactions. Has noted sensitivity to strawberries and some nuts. DEBORAH BRISENO MD [address] [place] [address], [place], [address], [facility] - [facility] 09/19/2024 08:59:36 OBGyn Episode No OBEpisode recorded.
--- OUTSIDE RECORDS SUMMARY | 2025-11-29 11:24 | XMS_ITS | Data Portability ---
Author Organization [facility]O [facility], [address] Address [address] [place] [address] Care Team Providers Care Workforce Management Manager Name Role Phone [facility] Primary Care Provider [phone] Assessment No assessment recorded. Plan of Treatment Reminders Order Date Submit Date Provider Last Modified By Organization Details Last Modified Time Details Appointments None recorded. Lab SARS CoV 2 (COVID-19) Ag, QL, IA, upper respiratory specimen 2022 023 [email or web address] [address], [address] [place], [address], 09:39:17 Referral None recorded. Procedures None recorded. Surgeries None recorded. Imaging None recorded. Medication Orders amoxicillin 875 mg-potassiu m clavulanate 125 mg tablet 2022 023 [email or web address] [id number], [address] [place], [address], 15:12:51 ketorolac 60 mg/2 mL intramuscul ar solution 2022 023 Not available 08:48:02 Patient TargetsNo targets recorded. Patient Instructions Encounter Date Encounter Id Patient Instructions Last Modified By Organization Details Last Modified Time 12/26/2022 [id number] headache: care instructions [email or web address] Not available 12/26/2022 09:37:29 Continue your regular treatment plan at home. [email or web address] Not available 12/26/2022 09:36:07 11/05/2023 [id number] ear infection (otitis media): care instructions Not [...] ve Not Available [address] [place], [address], 11/05/2023 08:50:13 Result Notes None recorded. Problems Name Problem SNOMED Code Status Onset Date Resolution Date Notes Provider Name and Address Organization Details Recorded Time Tachycardia 4075814 Active KATERINE DEPINTO null, [place] - [facility] 08:49:14 Pernicious anemia 23580680 Active KATERINE DEPINTO null, [place] - [facility] 08:49:19 Migraine 02042585 Active NEL GOMEZ-MICHELLE LAZCANO null, [place] - [...] Name and Address Organization Details Recorded Time 827381 Substance with sulfonami de structure and antibacte rial mechanism of action (substanc e) medicatio n other Not available Not available 12/26/2022 57567 8003 SNOMED NEL ABURTO RA null, [place] - [facility] 08:55:56 722099 topiramat e medicatio n rash Not available Not available 12/26/2022 45945 RxNorm GONZALO Joiner RA - [facility] [...] Updated DateTime 3 175.26 cm 25.8 kg/m2 95803.6 6 g 5 17 /min 100 % [...] Updated DateTime 3 175.26 cm 26.6 kg/m2 13423.6 3 g 18 /min 97.8 [degF] 97 % 92 /min 0 111/76 mm[Hg] KATERINE KIMBALL [place] - [facility] 3 08:51:18 Social History Question Answer Notes LastModified by [employer] Details LastModified Time Tobacco Smoking Status Never [...] Functional Status Question Answer Note LastModified by [employer] Details LastModified Time How many times per [...] PA - [facility] 12/26/2022 08:55:00 Novel [id number], preservative-free 0 completed NEL GOMEZ-ZIEGLER null, PA [...] ICD10 Code Diagnosis IMO Codes Diagnosis Note [id number] [address] [place] [address] 02/27/2022 08:55:38 02/27/2022 10:04:35 [id number] [address] [place] [address] 06/24/2020 13:12:00 06/24/2020 14:11:50 [id number] [address] [place] [address] 01/10/2022 09:19:54 01/10/2022 10:12:28 [id number] [address] [place] [address] 01/28/2021 08:33:58 01/28/2021 09:20:34 [id number] [address] [place] [address] 02/07/2021 08:08:43 02/07/2021 09:44:20 [id number] [address] [place] [address] 05/16/2020 19:04:51 05/16/2020 19:51:35 [id number] [address] [place] [address] 08/16/2018 12:19:29 08/16/2018 14:34:38 [id number] BA MIMS MD [address] [place] [address] 12/26/2022 08:36:25 12/26/2022 09:38:19 Chronic migraine without aura 5954736099 12210 G43.709 [id number] Mili Rosales, PUJA [address] [facility] [address] [facility] [place] [address] 11/05/2023 08:17:12 11/05/2023 09:40:45 Upper respiratory infection 37657589 J06.9 1. Take Ibuprofen or Tylenol if [...] . Severe Headache Thank you for using [facility] today, please feel free to contact our office if you have any questions or concerns. Acute left otitis media 641080834 H66.92 An ear infection may start with [...] ID Guarantor Name 11/22/2023 1 CAITLIN (PPO) [id number] Tammy Naqvi [id number] Tammy Naqvi Notes Date Note Type [...] BA MIMS MD [address] [place], [address], [place] - [facility] 12/26/2022 09:42:05 11/05/2023 text/html CoughReported by [...] Mili Rosales NP [address] [place], [address], [place] - [facility] 11/22/2023 15:16:33 OBGyn Episode No OBEpisode recorded.
[2025-12-03 10:24] LABS: Vitamin D 25-OH, D2 <4 ng/mL; Vitamin D 25-OH, D3 51 ng/mL; Vitamin D 25-OH, Total 51 ng/mL (30-100)
== END 2025-11-29 09:26 | disposition home or self-care (01) ==
LOC: HO.LAB 09:25
PROVIDERS: PCP Internal Medicine; Visit Provider Nurse Practitioner Family
DX: R10.13 Epigastric pain (principal); K52.9 Noninfective gastroenteritis and colitis, unspecified; E55.9 Vitamin D deficiency, unspecified; D51.0 Vitamin B12 deficiency anemia due to intrinsic factor deficiency
CPT/HCPCS: 36415; 82306; 83690